=== PATIENT | female | born 1980 | race Caucasian/White ===

== ENCOUNTER 2017-04-20 15:40 | Inpatient (IN) | payer MEDICAID ==
[2017-04-20] MEDS ORDERED: Ondansetron INJ* 2 MG/ML VIAL IV PRN (19:36)
[2017-04-20] MEDS ORDERED: Morphine INJ* 4 MG/ML 1 ML CARPUJECT IV PRN (19:36)
[2017-04-20] MEDS ORDERED: traMADol TAB* 50 MG PO PRN (19:37)
[2017-04-20] MEDS ORDERED: Nicotine GUM* 2 MG PO PRN (19:38)
[2017-04-20] MEDS ORDERED: Zosyn per Pharmacy* NOTE FOLLOW UP SCH (20:00)
--- NOTE | 2017-04-20 20:21 | RAD ---
INDICATION: Right hip pain COMPARISON: None TECHNIQUE: 115 noncontrast axial source images were acquired. Coronal and sagittal reconstructed images were obtained. FINDINGS: There are no acute osseous findings. There are no significant osteoarthritic changes. The right hip articulates normally. The soft tissue elements are normal. IMPRESSION: NEGATIVE EXAMINATION.
[2017-04-20] MEDS ORDERED: Vancomycin(*) 1,000 MG in NS 0.9% 250 ML* 250 ML IVPB ONE (20:30)
[2017-04-20 21:13] LABS: EGFR African American 140.1 (>60); EGFR Non-African American 108.9 (>60)
[2017-04-20] MEDS: HYDROmorphone INJ* 2 MG/ML CARPUJECT SYRINGE IV SLOW PU PRN (21:20)
[2017-04-20] MEDS: Heparin VIAL(*) 5000 UNITS/ML VIAL (FIVE THOUSAND) SUBCUT SCH (21:27)
[2017-04-20 21:28] LABS: Urine Bacteria Absent (Absent); Urine Bilirubin Negative (Negative); Urine Glucose Negative (Negative); Urine Nitrite Negative (Negative)
[2017-04-20] MEDS ORDERED: Vancomycin per Pharmacy* NOTE FOLLOW UP PRN (21:37)
[2017-04-20] MEDS: Cefepime(*) 1 GM in NS 0.9% 50 ML* 50 ML IVPB SCH (22:50)
--- NOTE | 2017-04-20 23:58 | HP ---
HOSPITAL MEDICINE HISTORY AND PHYSICAL: DATE OF ADMISSION: 04/20/17 PRIMARY CARE PHYSICIAN: None. ATTENDING PHYSICIAN: Dr. Ruddy De La Vega* (dictation provided by Julissa Plasencia NP). CHIEF COMPLAINT: Rigors and right hip pain. HISTORY OF PRESENT ILLNESS: Ms. Holloway is a 36-year-old female with a past medical history of back pain and IV drug use, who presents to the hospital today with concern for 3 days of rigors now with chest and right-sided hip pain. Ms. Holloway states that her troubles began about 3 days ago when she began shaking uncontrollably. She was unsure what was going on with her. She does not have a thermometer and did not check her temperature. She continued to feel bad with generalized malaise and muscle aches. She today had worsening rigors and noted chest pain and pain in her right hip radiating down into her leg. Ms. Holloway reports that she last used IV drugs 1 month ago. She states it was methamphetamine. She has had a history of on and off of drug use, but states that she has been clean for the past month. The patient presented to [facility] with rigors, tachycardia, and fever. She was given Zosyn and IV fluids. Labs showed that she had a white blood cell count of 14.2. Her lactic acid was normal at 1 though she does have a bandemia at 14%. Plans were made for her to be transferred to [facility]. Here, she is afebrile, heart rate is 100, blood pressure is 93/53. Her main complaint is of severe right hip and low back pain with any movement that radiates into her right leg. PAST MEDICAL HISTORY: 1. Back pain. 2. IV drug use. MEDICATION: Aspirin p.r.n. pain. ALLERGIES: DIPHENHYDRAMINE and TRAMADOL. FAMILY HISTORY: The patient reports her mother is alive and well. She reports an extensive history of cancer in the family, but she is not sure of the details. SOCIAL HISTORY: The patient is a current smoker. She denies any alcohol use. She has been an IV drug user in the past, but states she has been clean for one month. She states her mom is the healthcare proxy. REVIEW OF SYSTEMS: A 14-point review of systems was completed with Ms. Holloway and all those not mentioned above were negative. PHYSICAL EXAMINATION GENERAL: Ms. Holloway is lying in the bed. She appears uncomfortable, but in no acute distress. VITAL SIGNS: Temperature 98.4, pulse rate 100, respiratory rate 16, O2 saturation 100% on room air, blood pressure 93/53. LUNGS: Clear to auscultation bilaterally with no accessory muscle use and good aeration. HEART: S1, S2. No murmur, rub, or gallop today. ABDOMEN: Soft, nontender with bowel sounds positive x4. EXTREMITIES: No cyanosis. The patient has pain with palpation along the right hip and with any attempt at range of motion. She states she would be unable to bear weight on that hip. NEUROLOGIC: She is alert. She is oriented x3. She moves all extremities equally. There is no facial asymmetry or focal weakness. Extraocular movements are intact. SKIN: No rashes, lesions. BACK: Patient has pain with palpation and range of motion to the right hip. DIAGNOSTIC STUDIES/LAB DATA: Lactic acid 1.1. Sodium 133, potassium 3.1, chloride 98, serum bicarbonate 27, BUN 8, creatinine 0.8. WBC 14.2, hemoglobin 9.4, hematocrit 29.2, platelet count 379. Bands are 14. Blood cultures were sent. Urinalysis shows plus leuk esterase and negative nitrites, but too numerous to count epithelial cells with likely an unclean catch. Chest x-ray shows no acute cardiopulmonary disease. ASSESSMENT: Ms. Holloway is a 36-year-old female with a past medical history of back pain and IV drug use who presents today to the hospital in transfer from [place] with concern for rigors, fever, and sepsis of unknown etiology. Her primary complaint is of right hip pain. Our plans are for inpatient admission as I expect her length of stay to be greater than 2 days for the followin. Sepsis: Based on the patient's severe right hip pain, I am suspicious that perhaps she has septic arthritis or perhaps an epidural abscess and I have written for a stat CT scan. She meets sepsis criteria with tachycardia and fever. Our plans will be to continue with IV fluids. She has had 3 L and we will continue with 1 additional liter now and maintenance fluid. This can be adjusted based on her vital signs and other parameters going forward. Her lactic acid is normal. Blood cultures were sent at [facility]. She will have broad spectrum antibiotic coverage with vancomycin and Zosyn. She does have a history of MRSA. The patient will have a transthoracic echocardiogram tomorrow as I am anticipating that blood cultures will be positive. I see that her urinalysis is positive, but it looks like an unclean catch. I will have that repeated, but I am less suspicious for a urinary source. 2. IV drug use. The patient states her last use was a month ago. The patient will be provided with pain medications to adequately control her right hip pain. Social work has been consulted. 3. History of back pain. The patient states that she hardly ever has any pain with this and that it is in a completely different location than what she is describing today down in her right hip. 4. Code status is full code. 5. Disposition to telemetry floor. TIME SPENT: Approximately 75 minutes were spent on the admission of this patient, more than half the time was spent with the patient at the bedside reviewing the events leading up to this hospitalization, performing the physical examination, and review of my plan of care. JULISSA PLASENCIA NP [id number]/[facility] #: [id number] EMILY
[2017-04-21] MEDS: Acetaminophen TAB* 325 MG PO PRN ×2 (00:41→12:03)
[2017-04-21] MEDS: HYDROmorphone INJ* 2 MG/ML CARPUJECT SYRINGE IV SLOW PU PRN ×5 (01:55→19:29)
[2017-04-21] MEDS: LORazepam TAB(*) 0.5 MG PO PRN ×4 (01:58→23:58)
[2017-04-21] MEDS: Heparin VIAL(*) 5000 UNITS/ML VIAL (FIVE THOUSAND) SUBCUT SCH ×3 (06:05→21:11)
[2017-04-21] MEDS: Vancomycin(*) 1,000 MG in NS 0.9% 250 ML* 250 ML IVPB SCH ×3 (06:05→21:43)
[2017-04-21] MEDS ORDERED: Mouth Piece, Nicotine* 1 EACH CARTRIDGE ONE (06:13)
[2017-04-21] MEDS: Nicotine Inhaler* 10 MG AMP INH PRN ×2 (06:14→09:58)
[2017-04-21 06:49] LABS: Hematocrit 25 % (35-47); Hemoglobin 7.9 g/dl (12.0-16.0); Mean Corpuscular HGB Conc 31 g/dl (31-36); Mean Corpuscular Hemoglobin 22 pg (27-31); Mean Platelet Volume 8 um3 (7.4-10.4); Red Cell Distribution Width 18 % (10.5-15); White Blood Count 9.9 10^3/ul (3.5-10.8)
[2017-04-21 06:51] LABS: Comments Flag Yes
[2017-04-21 06:52] LABS: Mean Corpuscular Volume 70 fL (80-97)
[2017-04-21 07:14] LABS: ALT 12 U/L (7-52); AST 17 U/L (13-39); Albumin 2.6 g/dL (3.2-5.2); Alkaline Phosphatase 81 U/L (34-104); Anion Gap 6 mmol/L (2-11); BUN/Creatinine Ratio 7.4 (8-20); Blood Urea Nitrogen 4 mg/dL (6-24); CO2 Carbon Dioxide 25 mmol/L (22-32); Calcium 7.9 mg/dL (8.6-10.3); Chloride 106 mmol/L (101-111); EGFR African American 164.3 (>60); EGFR Non-African American 127.7 (>60); Glucose 111 mg/dL (70-100); Potassium 3.1 mmol/L (3.5-5.0); Sodium 137 mmol/L (133-145); Total Protein 5.6 g/dL (6.4-8.9)
[2017-04-21] MEDS: Nicotine PATCH 14 MG/24 HR* PATCH TRANSDERM SCH (07:45)
--- NOTE | 2017-04-21 08:00 | RAD ---
HISTORY: Spinal abscess, endocarditis COMPARISONS: None TECHNIQUE: Multiple contiguous axial CT scans were obtained of the lumbar spine without intravenous contrast, with coronal and sagittal multiplanar reformations. FINDINGS: SPINAL CANAL: Evaluation of the central canal is limited on CT technique; however, there is no obvious canalicular mass or epidural hemorrhage. ALIGNMENT: The alignment is normal. VERTEBRAL BODIES: The vertebral bodies are preserved in height. The bones are normal in attenuation. The endplates are preserved. JOINTS: No subluxation or dislocation MUSCULATURE: Unremarkable INTERVERTEBRAL DISCS: There is mild loss of intervertebral disc height throughout the spine. AXIAL IMAGES: T12-L1: There is no osseous neural foraminal narrowing or central canal stenosis. L1-L2: There is no osseous neural foraminal narrowing or central canal stenosis. L2-L3: There is no osseous neural foraminal narrowing or central canal stenosis. L3-L4: There is no osseous neural foraminal narrowing or central canal stenosis. L4-L5: There is a broad-based disc bulge there is no significant central foraminal area or central canal stenosis. L5-S1: There is no osseous neural foraminal narrowing or central canal stenosis. SOFT TISSUES: The visualized soft tissues of the abdomen are unremarkable. OTHER: None IMPRESSION: 1. NONCONTRAST CT IS INSENSITIVE FOR THE DETECTION OF EPIDURAL ABSCESS. WHILE THERE ARE NO CT FINDINGS TO SUGGEST OSTEOMYELITIS OR DISCITIS, IF THERE IS PERSISTENT CLINICAL CONCERN FOR INFECTION INCLUDING EPIDURAL ABSCESS, CONTRAST ENHANCED MRI OF THE SPINE IS MORE SENSITIVE. 2. MILD DEGENERATIVE DISC DISEASE. NO SIGNIFICANT OSSEOUS NEURAL FORAMINAL NARROWING OR CENTRAL CANAL STENOSIS.
--- NOTE | 2017-04-21 08:45 | PN ---
Subjective Date of Service: 04/21/17 Interval History: She again had chills early AM 04/21. Pain R buttock very severe, radiates to her foot. Appetite OK. Objective Active Medications: Acetaminophen (Tylenol Tab*) 650 mg PO Q6H PRN PRN Reason: pain/fever Last Admin: 04/21/17 00:41 Dose: 650 mg Heparin Sodium (Porcine) (Heparin Vial(*)) 5,000 units SUBCUT Q8HR [facility] Last Admin: 04/21/17 06:05 Dose: 5,000 units Hydromorphone HCl (Dilaudid Inj*) 1 mg IV SLOW PU Q3H PRN PRN Reason: PAIN Lactated Ringer's (Lactated Ringers 1000 Ml Bag*) 1,000 mls @ 125 mls/hr IV PER RATE [facility] Last Admin: 04/21/17 07:52 Dose: 125 mls/hr Cefepime HCl 1 gm/ Sodium (Chloride) 50 mls @ 100 mls/hr IVPB Q12H [facility] Last Admin: 04/20/17 22:50 Dose: 100 mls/hr Vancomycin HCl 1,000 mg/ (Sodium Chloride) 250 mls @ 166.667 mls/hr IVPB Q8H [facility] Last Admin: 04/21/17 06:05 Dose: 166.667 mls/hr Ibuprofen (Motrin Tab*) 600 mg PO Q6H PRN PRN Reason: PAIN Influenza Virus Vaccine (Fluarix *Quad* *) 0.5 ml IM .ONCE ONE Stop: 04/21/17 09:01 Last Admin: 04/21/17 07:46 Dose: 0.5 ml Lorazepam (Ativan Tab(*)) 0.5 mg PO Q6H PRN PRN Reason: ANXIETY Last Admin: 04/21/17 08:00 Dose: 0.5 mg Nicotine (Nicotine Inhaler*) 10 mg INH Q2H PRN PRN Reason: CRAVING Last Admin: 04/21/17 06:14 Dose: 10 mg Nicotine (Nicotine Patch 14 Mg/24 Hr*) 1 patch TRANSDERM DAILY [facility] Last Admin: 04/21/17 07:45 Dose: 1 patch Nicotine Polacrilex (Nicotine Gum*) 2 mg PO Q2H PRN PRN Reason: CRAVING Ondansetron HCl (Zofran Inj*) 4 mg IV Q6H PRN PRN Reason: NAUSEA Pharmacy Consult (Vancomycin Per Pharmacy*) 1 note FOLLOW UP . PRN PRN Reason: PER PROTOCOL Pharmacy Profile Note (Nicotine Patch Removal Note*) 1 note PATCH OFF 2100 [facility] Pharmacy Profile Note (Vancomycin Trough Check) 1 note FOLLOW UP 0530 ONE Stop: 04/22/17 05:31 Pneumococcal Polyvalent Vaccine (Pneumococcal Vac 23-Polyvalent*) 0.5 ml IM .ONCE ONE Stop: 04/21/17 09:01 Last Admin: 04/21/17 07:45 Dose: 0.5 ml Vital Signs 04/20/17 04/20/17 04/20/17 18:39 19:50 20:00 Temperature 98.4 F Pulse Rate 100 Respiratory 16 20 20 Rate Blood Pressure 93/53 (mmHg) O2 Sat by Pulse 100 Oximetry 04/20/17 04/20/17 04/20/17 20:50 21:20 22:20 Temperature Pulse Rate Respiratory 20 20 17 Rate Blood Pressure (mmHg) O2 Sat by Pulse Oximetry 04/21/17 04/21/17 04/21/17 00:30 01:55 01:58 Temperature 102.8 F Pulse Rate 114 Respiratory 16 24 24 Rate Blood Pressure 107/61 (mmHg) O2 Sat by Pulse 93 Oximetry 04/21/17 04/21/17 04/21/17 02:01 02:55 03:58 Temperature 100 F Pulse Rate Respiratory 17 17 Rate Blood Pressure (mmHg) O2 Sat by Pulse Oximetry 04/21/17 04/21/17 04/21/17 04:46 06:14 07:14 Temperature 98.5 F Pulse Rate 81 Respiratory 16 18 14 Rate Blood Pressure 101/41 (mmHg) O2 Sat by Pulse 97 Oximetry 04/21/17 04/21/17 04/21/17 08:00 08:07 08:12 Temperature 98.3 F Pulse Rate 113 Respiratory 18 20 18 Rate Blood Pressure 115/66 (mmHg) O2 Sat by Pulse 99 Oximetry Oxygen Devices in Use Now: None Appearance: Alert, head partly up in bed. Uncomfortable with any motion. Eyes: No Scleral Icterus Respiratory: Symmetrical Chest Expansion and Respiratory Effort, Clear to Auscultation, Clear to Percussion, Clear to Palpation, - Cardiovascular: NL Sounds; No Murmurs; No JVD, RRR, No Edema, - Extremities: No Edema, No Clubbing, Cyanosis, - - severe pain with slight abduction R leg, any pressure around R hip. Skin: No Rash or Ulcers, No Nodules or Sclerosis, - Neurological: Alert and Oriented x 3, NL Sensation Result Diagrams: 04/21/17 05:20 04/21/17 05:20 Microbiology and Other Data: Microbiology 04/20/17 19:15 Nasal Screen MRSA (PCR)([facility]) - Final Nasal Mrsa Negative Assess/Plan/Problems-Billing Assessment: - Patient Problems (1) MRSA bacteremia Current Visit: Yes Status: Acute Code(s): R78.81 - BACTEREMIA SNOMED Code( s): 91210930647891539 Comment: ? epidural abcess and/or R hip infection, +/- endocarditis. MRI spine w/wo ordered. Message left for Dr. Singh to call me back to guide evaluation of R hip. Continue cefepime and vancomycin. All 4 blood C&S bottles from [facility] positive, 2 not yet identified, 2 identified as MRSA. CRP add on requested. (2) Tobacco abuse Current Visit: Yes Status: Acute Code(s): Z72.0 - TOBACCO USE SNOMED Code( s): 454470783 Comment: Pt satisfied with the 14 mg dose of patch. Pt advised to quit smoking and avoid second hand smoke. (3) Anemia Current Visit: Yes Status: Acute Code(s): D64.9 - ANEMIA, UNSPECIFIED SNOMED Code(s): 048820712 Comment: Mostl likely iron deficiency anemia related to menstrual blood loss. Iron studies added on.
[2017-04-21] MEDS ORDERED: Influenza VAC *QUAD* 2017-18* 0.5 ML SYRINGE IM ONE (09:00)
[2017-04-21] MEDS ORDERED: Pneumococcal *Vac Polyvalent 0.5 ML VIAL IM ONE (09:00)
[2017-04-21 09:09] LABS: Total Iron Binding Capacity 314 mcg/dL (250-450); Transferrin 224 mg/dL (203-362)
[2017-04-21 09:20] LABS: C Reactive Protein 195.94 mg/L (< 5.00)
[2017-04-21 09:21] LABS: Ferritin 49.5 ng/mL (11-307)
[2017-04-21 09:22] LABS: Iron < 15 ug/dL (50-212)
[2017-04-21] MEDS: Ibuprofen TAB* 600 MG PO PRN ×2 (09:58→16:58)
[2017-04-21] MEDS: Cefepime(*) 1 GM in NS 0.9% 50 ML* 50 ML IVPB SCH (10:18)
--- NOTE | 2017-04-21 14:22 | CONS ---
CONSULTATION REPORT: DATE OF CONSULT: 04/21/17 REQUESTING PHYSICIAN: Dr. Cortez. CONSULTING SERVICE: Infectious Disease. REASON FOR CONSULT: MRSA bacteremia. IMPRESSION: 1. Methicillin-resistant Staphylococcus aureus bacteremia in a person who injects drugs. Severe ri ght buttock and hip pain worse with weightbearing and positive log roll, I am concerned about a sept ic hip. There is no spine tenderness to palpation, though it could still be a lumbar osteodiskitis, septic facet joint, could also be a septic sacroiliac joint, and infective endocarditis is on the d ifferential. 2. Microcytic anemia. 3. Elevated C-reactive protein. RECOMMENDATION: 1. Continue vancomycin, goal trough 15 to 20, we will recheck the blood cultures tomorrow. Follow up sensitivity data. 2. Transesophageal echocardiogram, MRI of the pelvis and lumbar spine and thoracic spine. If there is a right hip effusion and SI joint is fine on the MRI, then she should have aspiration of the hip joint. HISTORY OF PRESENT ILLNESS: This is a 36-year-old woman, who injects drugs, admitted with severe hi p pain and fever, transferred from [facility] where she had been for the same symptoms. Bloo d cultures were taken there, 4/4 with gram- positive cocci. The PCR is positive for Staph aureus an d MRSA. She is on vancomycin and cefepime here. She is continuing to have fevers, which she has mcclain d for a week as well as right buttock and hip pain for a week which is getting worse including with weightbearing. It is hard roll over in bed because of the pain. She had a CT of the lower extremity in the ER that was negative. CT of the lumbar spine showed mild degenerative disk disease. The pa in is about the same today. She was febrile overnight at 39.3. She has no rash or diarrhea. No pro sthetic material present. PAST MEDICAL HISTORY: Back pain, injection of methamphetamine. MEDICATIONS: 1. Tylenol. 2. Dilaudid p.r.n. 3. Ibuprofen. 4. Nicotine gum. 5. Nicotine inhaler. 6. Nicotine patch. 7. Vancomycin 1 g IV every 8 hours. 8. Cefepime 1 g every 12 hours. ALLERGIES: To DIPHENHYDRAMINE and TRAMADOL. FAMILY HISTORY: No recurrent infections, no tuberculosis. SOCIAL HISTORY: She lives in [facility], recently moved here from [place]. Past injection with m ethamphetamine until about a month ago. REVIEW OF SYSTEMS: Fourteen-point review of systems negative except as noted above. PHYSICAL EXAM: Vital Signs: Temperature 37, heart rate 110, respiratory rate 20, blood pressure 11 5/66, O2 sat 99% on room air. General: She is awake, in mild discomfort. HEENT: There is no conj unctival hemorrhage. Oropharynx without lesions. Neurologic: She is oriented x3. Follows all com mands. Strength is 5/5 in the quadriceps, tibialis anterior, gastrocnemius bilaterally. Sensation is intact to light touch in the lower extremities bilaterally. There is no lower extremity clonus b ilaterally. Neck: Supple without nuchal rigidity. Lymph Nodes: There is no cervical, supraclavicu lar, inguinal, axillary, or epitrochlear lymphadenopathy. Heart: Regular and tachycardic without m urmurs. Lungs: Clear to auscultation bilaterally. Abdomen: Soft, nontender, nondistended. Bowel sounds are present. Skin: There is no rash or splinter hemorrhages. Musculoskeletal: There is no spine tenderness to palpation. There is right SI joint tenderness to palpation in hip, greater tro chanteric tenderness to palpation, there is pain with log roll and flexion and extension of the righ t hip. There is no other joint synovitis. LABORATORY DATA: White blood cell count 9.9, hemoglobin 7.9, MCV 70, platelets 238. Creatinine is 0.5. CRP 200. Please see the impressions and recommendation as outlined above, which I have discuss ed with Dr. Cortez. Thank you for asking me to see Holloway in consultation. [id number]/[facility] #: [id number]
--- NOTE | 2017-04-21 14:28 | ECHO ---
Patient: BERNIE FLORES [facility] Rec#: [id number] : 1980 Date: 04/21/2017 Age: 36y Height: 157.48 cm / 62.0 in Weight: 67.13 kg / 148.0 lbs Sex: F BSA: 1.68 Room#: 437 Admit Date#: 04/20/2017 Type: Outpatient Referring: Ty Oseguera MD Reading: Andreea Thompson MD Service Electrician: Mirela [facility]AD[facility] Transthoracic Echocardiogram Indication: Sepsis BP: 101/41 HR: 109 Rhythm: Tachycardia Findings History: IVDA, back pain, smoker. Technical Comments: The study quality is fair. The study is technically limited due to the patient's smoking history. Completed at 1130. Left Ventricle: The left ventricular chamber size is normal. There is no left ventricular hypertrophy. Global left ventricular wall motion and contractility are within normal limits. The left ventricle appears hyperdynamic. The estimated ejection fraction is 60-65%. Normal left ventricular diastolic filling is observed. Left Atrium: The left atrium is mildly dilated. Right Ventricle: Moderator Band present. The right ventricular cavity size is normal. The right ventricular global systolic function is normal. Right Atrium: The right atrial cavity size is normal. Aortic Valve: The aortic valve is trileaflet. There is no evidence of aortic regurgitation. There is no evidence of aortic stenosis. There is no aortic vegetation present. Mitral Valve: The mitral valve leaflets are mildly thickened. There is trace to mild mitral regurgitation. There is no evidence of mitral stenosis. No vegetation is observed on the mitral valve. Tricuspid Valve: The tricuspid valve leaflets are mildly thickened. There is mild to moderate tricuspid regurgitation. The right ventricular systolic pressure is estimated at 37 mmHg. There is evidence of mild pulmonary hypertension. There is no tricuspid stenosis. A mass is visualized on the tricuspid valve which appears consistent with a vegetation.Thickening of the leaflets and chordae seen and on parasternal views evidence of vegetation crossing into the atrium. Pulmonic Valve: The pulmonic valve appears normal. There is a trace pulmonic regurgitation. There is no pulmonic stenosis. No vegetation is observed on the pulmonic valve. Pericardium: There is no significant pericardial effusion. Aorta: There is no dilatation of the ascending aorta. There is no dilatation of the aortic arch. The aortic root is normal in size. Pulmonary Artery: The main pulmonary artery appears normal. Venous: The inferior vena cava appears normal in size. There is less than 50% respiratory change in the inferior vena cava dimension. Conclusions Global left ventricular wall motion and contractility are within normal limits. The left ventricle appears hyperdynamic. The estimated ejection fraction is 60-65%. The right ventricular global systolic function is normal. A mass is visualized on the tricuspid valve which appears consistent with a vegetation: hickening of the leaflets and chordae seen on apical views and on parasternal views evidence of vegetation crossing into the atrium (measures approximately 1.0 x 0.4 cm). There is mild to moderate tricuspid regurgitation. The right ventricular systolic pressure is estimated at 37 mmHg. No vegetations seen on aortic, mitral or pulmonic valves. There is trace to mild mitral regurgitation. No prior echo to compare. Measurements Name Value Normal Range RVIDd (AP) 2D 2.7 cm (0.9 - 2.6) RVDdMajor (2D) 3.6 cm (2.2 - 4.4) RAd ISD 4CH 4 cm (3.4 - 4.9) RA (A4C)W 4.3 cm (2.9 - 4.6) IVSd (2D) 0.72 cm (0.6 - 1) LVPWd (2D) 0.72 cm (0.6 - 1) LVIDd (2D) 4.6 cm (3.6 - 5.4) LVIDs (2D) 3.6 cm - LV FS (2D) 22 % (25 - 45) Aortic Annulus 1.7 cm (1.4 - 2.6) Ao root diameter (2D) 2.2 cm (2.1 - 3.5) Ascending Ao 2.3 cm (2.1 - 3.4) Aortic arch 2.2 cm (1.8 - 3.4) LA dimension (AP) 2D 3.1 cm (2.3 - 3.8) LAd ISD 4CH 4.6 cm (2.9 - 5.3) LA ISD 4CH W 3.5 cm (2.5 - 4.5) Name Value Normal Range LA ESV SP 4CH (A/L) 54 ml - LA ESV SP 2CH (A/L) 58 ml - LA ESV BP (A/L) 58 ml - LA ESV BP (A/L) index 35 ml/m2 - LA ESV SP 4CH (MOD) 48 ml - LA ESV SP 2CH (MOD) 56 ml - Name Value Normal Range MV E-wave Vmax 1.37 m/sec - MV deceleration time 142.6 msec - MV A-wave Vmax 0.7 m/sec - MV E:A ratio 1.96 ratio - LV septal e' Vmax 0.13 m/sec - LV lateral e' Vmax 0.13 m/sec - LV E:e' septal ratio 10.54 ratio - LV E:e' lateral ratio 10.54 ratio - Name Value Normal Range AV Vmax 1.87 m/sec - AV VTI 28.26 cm - AV peak gradient 14.02 mmHg - AV mean gradient 7.76 mmHg - LVOT Vmax 1.46 m/sec - LVOT VTI 22.7 cm - LVOT peak gradient 8.59 mmHg - LVOT mean gradient 4.45 mmHg - GUILLERMINA Vmax 1.43 m/sec - Name Value Normal Range TR Vmax 2.7 m/sec - TR peak gradient 29 mmHg - RAP 8 mmHg - RVSP 37 mmHg - IVC diameter 1.6 cm - Name Value Normal Range PV Vmax 1.1 m/sec - PV peak gradient 4.93 mmHg -
[2017-04-21] MEDS: Ferrous Sulfate TAB* 325 MG PO SCH (17:36)
[2017-04-21] MEDS: Al Hydrox/Mg Hydrox/Simet LIQ* 30 ML UDC PO PRN (17:59)
[2017-04-21] MEDS: Omeprazole CAP* 20 MG PO SCH (17:59)
[2017-04-21] MEDS ORDERED: Gadoteridol* (CONTRAST) 279.3 MG/ML 10 ML IV ONE (19:56)
--- NOTE | 2017-04-21 20:58 | RAD ---
INDICATION: Evaluate for epidural abscess. Back pain. COMPARISON: None TECHNIQUE: Coronal T2, sagittal T1, T2, inversion recovery, and axial T1 and T2-weighted images were acquired. Multiplanar postcontrast images were obtained with injection of 13 mL of ProHance. FINDINGS: Cord: There are no intrinsic abnormalities of the cord. There is no evidence of an epidural mass or abnormal enhancement. Thoracic alignment: Normal. Vertebrae: There are no focal marrow signal abnormalities. The disc spaces are maintained. The canal appears widely patent. Soft tissues:There is no paravertebral abnormality. Other:None IMPRESSION: No specific MR abnormalities. No evidence of discitis or epidural abscess.
--- NOTE | 2017-04-21 21:05 | RAD ---
INDICATION: Back pain. Question spinal abscess. Negative CT imaging of the hip and lumbar spine COMPARISON: None TECHNIQUE: Coronal T2, sagittal T1, T2, inversion recovery, and axial T1 and T2-weighted images were acquired. Multiplanar contrast-enhanced images were obtained with injection of 13 mL of ProHance FINDINGS: Conus medullaris: Normal in size and position . Lumbar alignment: Normal. Vertebrae: There are no focal marrow signal abnormalities. Disc spaces: T12-L1: Normal L1-L2: Normal L2-L3: Normal L3-L4: Normal L4-L5: There is mild desiccation at L4-L5 with mild circumferential bulging the disc. There is wide canal and foraminal patency L5-S1: Normal Soft tissues:There is no paravertebral abnormality. Other: There is no evidence of epidural mass or abnormal enhancement. IMPRESSION: Mild degenerative disease L4-L5 without canal or foraminal compromise. No CT evidence of epidural abscess, osteomyelitis, discitis.
--- NOTE | 2017-04-21 21:10 | CONS ---
CC: PCP CONSULTATION REPORT: DATE OF CONSULT: 04/21/17 CHIEF COMPLAINT: Right hip pain. HISTORY OF PRESENT ILLNESS: Briefly, Becca Holloway is a 36-year-old female with history of back p ain and IV drug use, who presents with 3 days of fevers and chills with right-sided leg pain. She s tates that it radiates down from deep buttock down her leg. She has numbness in the lateral 3 toes dorsally. She has some decreased sensation of plantar aspect of the foot and lateral aspect of the foot. She does not recall any specific injury. Does not recall any specific hip pain specific to t he groin. She does have history of IV drug use and she does use methamphetamine on occasion. She h as been mostly clean otherwise for the last month. She went to [facility] initially and was given Zosyn and IV fluids and then she was transferred here for definitive management. Orthopedics was consulted for possible right hip infection. PAST MEDICAL HISTORY: Back pain, IV drug use. MEDICATIONS: Aspirin as needed. ALLERGIES: BENADRYL and TRAMADOL. FAMILY HISTORY: Her mother is alive and well. She has extensive history of cancer in the family. SOCIAL HISTORY: She is a current smoker. Denies alcohol use. She has been an IV drug user in the past, she is presently clean for the last month. Her mom is her healthcare proxy. REVIEW OF SYSTEMS: A 14-point review of systems is significant for shaking chills, back pain, numbn ess, and tingling. No recent illnesses. No new injuries. Otherwise, remaining systems negative. PHYSICAL EXAM: Vital Signs: Temp of 101.2, pulse of 103, respiratory rate 20, O2 saturation 96% on room air, blood pressure 112/45. She is in no acute distress. She is alert and oriented x3. She i s resting in the bed on her right side. She is able to be mobilized. She stated she just received a dose of Dilaudid. She is able to stand on her legs as she is localizing the pain deep into the bu ttock along the right side and shoots down her leg. The skin is intact. There is no erythema or wa rmth. She is tender about the buttock. I am able to do a log roll without any discomfort. I can f prasanna her hip passively to about 80 degrees, which causes her some pain deep in the buttock and shoots down her leg. She does not localize any pain in the groin. She is nontender about the lateral asp ect of the hip. Her calf is soft and nontender. She is sensate grossly about the foot, but has dim inished sensation about the first dorsal webspace, plantar aspect, and the dorsolateral aspect. She has 2+ PT pulse. She is able to flex and extend her toes and ankle. DIAGNOSTIC STUDIES/LAB DATA: Reviewed that demonstrates white blood cell count of 9.9, hematocrit o f 25, platelet count of 238. ESR 84. INR 1.3. Sodium 137, potassium 3.1, chloride 106, carbon marcelino xide 25, BUN of 4, creatinine 0.54, glucose of 111, calcium 7.9. C-reactive protein of 195.94. CT scan was done, which demonstrates no effusion, no fracture, no dislocation, no evidence of an inf ective process; otherwise, negative exam. ASSESSMENT AND PLAN: She is admitted for suspected methicillin-resistant Staphylococcus aureus bact eremia with possible seeding of the right hip versus the lumbar spine. She is being worked up. The re is no obvious effusion. I discussed with the medicine team there is concern for hip joint infect ion. She needs to have ultrasound and MRI done with an aspiration of effusion if it is present. I will continue to follow along, but I do not see something orthopedic necessarily going on with her. Her pain seems to be more back related. Please do not hesitate to call with any questions, but I w ill follow more distantly with this case. [id number]/[facility] #: [id number]
[2017-04-21] MEDS: Polyethylene Glycol 3350* 17 GM PACKET PO SCH (21:11)
[2017-04-21] MEDS: Nicotine Patch Removal NOTE PATCH OFF SCH (21:14)
[2017-04-22] MEDS: HYDROmorphone INJ* 2 MG/ML CARPUJECT SYRINGE IV SLOW PU PRN ×6 (00:53→23:01)
[2017-04-22] MEDS ORDERED: Vancomycin Trough Check NOTE FOLLOW UP ONE (05:30)
[2017-04-22] MEDS: Omeprazole CAP* 20 MG PO SCH (05:45)
[2017-04-22] MEDS: Heparin VIAL(*) 5000 UNITS/ML VIAL (FIVE THOUSAND) SUBCUT SCH ×3 (05:46→22:30)
[2017-04-22 06:48] LABS: Vancomycin Trough 10.3 mcg/mL
[2017-04-22] MEDS: Vancomycin(*) 1,000 MG in NS 0.9% 250 ML* 250 ML IVPB SCH ×3 (07:00→17:44)
[2017-04-22] MEDS: Polyethylene Glycol 3350* 17 GM PACKET PO SCH ×2 (09:19→19:53)
[2017-04-22] MEDS: Ferrous Sulfate TAB* 325 MG PO SCH ×2 (09:20→17:44)
[2017-04-22] MEDS: Nicotine PATCH 14 MG/24 HR* PATCH TRANSDERM SCH (09:20)
--- NOTE | 2017-04-22 09:53 | PN ---
Progress Note - Progress Note Date of Service: 04/22/17 SOAP: Subjective: CC: endocarditis HPI: 36 year old PWID with MRSA bacteremia and TV vegetation. R buttock pain radiates to upper leg, worse with weight bearing, better with dilaudid. 02/04 now. Fever overnight, no rash or diarrhea. Objective: [] Vital Signs Temp 37.7 C 04/22/17 07:33 Pulse 82 04/22/17 07:33 Resp 18 04/22/17 09:19 BP 104/57 04/22/17 07:33 Pulse Ox 93 04/22/17 07:33 Intake & Output 04/21/17 04/22/17 04/22/17 18:59 06:59 18:59 Intake Total 1566 1170 240 Output Total 450 125 200 Balance 1116 1045 40 Weight 148 lb Intake: IV Fluids 336 442 LR 336 442 IVPB 250 278 ABX - VANCOMYCIN 250 278 Oral 980 450 240 Output: Urine 450 125 200 Other: Estimated Void Medium # Bowel Movements 0 # Voids 1 1 Gen:awake, no distress HEENT:PERRL, MMM Heart:RRR no murmur Lungs:CTA BL Abd:+BS NTND soft Skin: no rash MSK: no spine tenderness, +R buttock tenderness MRI T/L spine no abscess or osteomyelitis Laboratory Results - last 24 hr 04/21/17 04/22/17 12:52 06:21 ESR 84 H Vancomycin Trough 10.3 Assessment: 1. MRSA infective endocarditis of tricuspid valve 2. MRSA sepsis present on admission and bacteremia 3. R buttock pain; Diff dx includes septic SI joint, septic hip, myositis 4. 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 vancomycin goal tr 15-20, recheck BC. MRI pelvis. If fluid in hip joint, IR aspiration. 4 weeks IV antibiotics unless a septic hip/SI joint found and then will need 6-[address] Cortez 35 minutes floor time >50% face to face discussing endocarditis treatment and follow up.
[2017-04-22 10:26] LABS: BUN/Creatinine Ratio 14.3 (8-20); Calcium 8.2 mg/dL (8.6-10.3); EGFR African American 219.6 (>60); EGFR Non-African American 170.7 (>60); Potassium 3.5 mmol/L (3.5-5.0)
[2017-04-22] MEDS ORDERED: Gadoteridol* (CONTRAST) 279.3 MG/ML 10 ML IV ONE (10:53)
--- NOTE | 2017-04-22 11:26 | RAD ---
Indication: RIGHT hip pain. History of IV drug use. Comparison: April 20, 2017 CT and April 21, 2017 MRI lumbar spine. Technique: Pre and postcontrast MRI pelvis RIGHT unilateral hip protocol. 14 mL ProHance administered IV. [employer] 1.5 Anastasia GO790F with GEM suite. Report: Normal bone marrow signal throughout the [id number]. Negative for hip or sacroiliac joint effusions. There is abnormal small volume of infiltrative RIGHT retroperitoneal fluid medial to the obturator internus muscle and at the presacral space. Based on the coronal series inversion recovery and postcontrast series there is edema within the RIGHT iliacus muscle with corresponding enhancement. Full cephalad extent is not included within the [id number]. Based on the current exam and the lumbar spine exam of one day prior there is no loculated retroperitoneal abscess collection. Physiologic small volume of free fluid in the cul-de-sac. Negative for lymphadenopathy within the [id number]. Haile images saved on the [facility] PACS. IMPRESSION: Small volume of infiltrative T2 hyperintense RIGHT retroperitoneal fluid and edema within the RIGHT iliacus muscle concerning for retroperitoneal soft tissue infection given the clinical context. No loculated abscess collection evident. Results discussed with Dr. Cortez 04/22/2017 11:22 AM EDT
--- NOTE | 2017-04-22 11:46 | PN ---
Subjective Date of Service: 04/22/17 Interval History: Pain R hip/leg still very severe. No BM yet. Objective Active Medications: Acetaminophen (Tylenol Tab*) 650 mg PO Q6H PRN PRN Reason: pain/fever Last Admin: 04/21/17 12:03 Dose: 650 mg Al Hydrox/Mg Hydrox/Simethicone (Maalox Plus*) 30 ml PO Q2H PRN PRN Reason: DYSPEPSIA Last Admin: 04/21/17 17:59 Dose: 30 ml Ferrous Sulfate (Ferrous Sulfate Tab*) 325 mg PO 0900,1730 [facility] Last Admin: 04/22/17 09:20 Dose: 325 mg Heparin Sodium (Porcine) (Heparin Vial(*)) 5,000 units SUBCUT Q8HR [facility] Last Admin: 04/22/17 05:46 Dose: 5,000 units Hydromorphone HCl (Dilaudid Inj*) 1 mg IV SLOW PU Q3H PRN PRN Reason: PAIN Last Admin: 04/22/17 09:19 Dose: 1 mg Lactated Ringer's (Lactated Ringers 1000 Ml Bag*) 1,000 mls @ 50 mls/hr IV PER RATE [facility] Last Admin: 04/21/17 19:00 Dose: 50 mls/hr Vancomycin HCl 1,000 mg/ (Sodium Chloride) 250 mls @ 166.667 mls/hr IVPB Q6H [facility] Ibuprofen (Motrin Tab*) 600 mg PO Q6H PRN PRN Reason: PAIN Last Admin: 04/21/17 16:58 Dose: 600 mg Lorazepam (Ativan Tab(*)) 0.5 mg PO Q6H PRN PRN Reason: ANXIETY Last Admin: 04/21/17 23:58 Dose: 0.5 mg Nicotine (Nicotine Inhaler*) 10 mg INH Q2H PRN PRN Reason: CRAVING Last Admin: 04/21/17 09:58 Dose: 10 mg Nicotine (Nicotine Patch 14 Mg/24 Hr*) 1 patch TRANSDERM DAILY [facility] Last Admin: 04/22/17 09:20 Dose: Not Given Nicotine Polacrilex (Nicotine Gum*) 2 mg PO Q2H PRN PRN Reason: CRAVING Omeprazole (Prilosec Cap*) 20 mg PO 0600 [facility] Last Admin: 04/22/17 05:45 Dose: 20 mg Ondansetron HCl (Zofran Inj*) 4 mg IV Q6H PRN PRN Reason: NAUSEA Pharmacy Consult (Vancomycin Per Pharmacy*) 1 note FOLLOW UP . PRN PRN Reason: PER PROTOCOL Pharmacy Profile Note (Nicotine Patch Removal Note*) 1 note PATCH OFF 2099 [facility] Last Admin: 04/21/17 21:14 Dose: 1 note Pharmacy Profile Note (Vancomycin Trough Check) 1 note FOLLOW UP ONCE ONE Stop: 04/23/17 11:31 Polyethylene Glycol/Electrolytes (Miralax*) 17 gm PO 0800,2099 [facility] Last Admin: 04/22/17 09:19 Dose: 17 gm Vital Signs 04/21/17 04/21/17 04/21/17 14:20 15:20 16:04 Temperature 97.4 F Pulse Rate 78 Respiratory 16 17 18 Rate Blood Pressure 84/42 (mmHg) O2 Sat by Pulse 96 Oximetry 04/21/17 04/21/17 04/21/17 16:59 18:59 19:29 Temperature Pulse Rate Respiratory 16 18 18 Rate Blood Pressure (mmHg) O2 Sat by Pulse Oximetry 04/21/17 04/21/17 04/21/17 19:40 20:00 20:29 Temperature Pulse Rate Respiratory 18 19 Rate Blood Pressure 95/52 (mmHg) O2 Sat by Pulse Oximetry 04/21/17 04/21/17 04/21/17 20:59 22:59 23:58 Temperature Pulse Rate Respiratory 18 18 18 Rate Blood Pressure (mmHg) O2 Sat by Pulse Oximetry 04/22/17 04/22/17 04/22/17 00:08 00:53 01:53 Temperature 98.4 F Pulse Rate 79 Respiratory 20 19 17 Rate Blood Pressure 94/51 (mmHg) O2 Sat by Pulse 100 Oximetry 04/22/17 04/22/17 04/22/17 01:58 03:42 03:45 Temperature 98.5 F Pulse Rate 78 Respiratory 17 20 Rate Blood Pressure 102/54 (mmHg) O2 Sat by Pulse 96 Oximetry 04/22/17 04/22/17 04/22/17 05:50 06:15 07:33 Temperature 99.9 F Pulse Rate 82 Respiratory 17 16 Rate Blood Pressure 120/70 104/57 (mmHg) O2 Sat by Pulse 93 Oximetry 04/22/17 04/22/17 08:00 09:19 Temperature Pulse Rate Respiratory 18 18 Rate Blood Pressure (mmHg) O2 Sat by Pulse Oximetry Oxygen Devices in Use Now: None Appearance: Alert, supine in bed. Looks uncomfortable. Extremities: No Edema, No Clubbing, Cyanosis, - - R leg very tender, patiend does not allow exam. Skin: No Rash or Ulcers, No Nodules or Sclerosis, - Neurological: Alert and Oriented x 3, NL Sensation Result Diagrams: 04/21/17 05:20 04/22/17 06:21 Microbiology and Other Data: Microbiology 04/20/17 19:15 Nasal Screen MRSA (PCR)(BETSEY) - Final Nasal Mrsa Negative Assess/Plan/Problems-Billing Assessment: - Patient Problems (1) MRSA bacteremia Current Visit: Yes Status: Acute Code(s): R78.81 - BACTEREMIA SNOMED Code( s): 10000229051983207 Comment: Tricuspid valve endocarditis, 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 Mohan. Continue vanco. CRP 04/25. (2) Tobacco abuse Current Visit: Yes Status: Acute Code(s): Z72.0 - TOBACCO USE SNOMED Code( s): 388759268 Comment: Pt satisfied with the 14 mg dose of patch. Pt advised to quit smoking and avoid second hand smoke. (3) Anemia Current Visit: Yes Status: Acute Code(s): D64.9 - ANEMIA, UNSPECIFIED SNOMED Code(s): 058632529 Comment: Iron deficiency anemia likely related to menstrual blood loss. FeSO4 325 mg bid started 04/21. Repeat CBC 04/25.
[2017-04-22] MEDS: LORazepam TAB(*) 0.5 MG PO PRN ×2 (11:52→22:26)
[2017-04-22] MEDS: Acetaminophen TAB* 325 MG PO PRN (15:22)
[2017-04-22] MEDS: Nicotine Patch Removal NOTE PATCH OFF SCH (20:28)
[2017-04-22] MEDS: Ibuprofen TAB* 600 MG PO PRN (22:25)
[2017-04-23] MEDS: Vancomycin(*) 1,000 MG in NS 0.9% 250 ML* 250 ML IVPB SCH ×5 (00:10→23:52)
[2017-04-23 01:01] LABS: Hematocrit 23 % (35-47); Hemoglobin 7.2 g/dl (12.0-16.0)
[2017-04-23 01:14] LABS: Comments Flag Yes
[2017-04-23 06:02] LABS: C Reactive Protein 164.24 mg/L (< 5.00); EGFR African American 188.2 (>60); EGFR Non-African American 146.3 (>60)
[2017-04-23] MEDS: Omeprazole CAP* 20 MG PO SCH (06:34)
[2017-04-23] MEDS: Magnesium CITRATE* 300 ML BTL PO ONE ×2 (06:36→07:36)
[2017-04-23] MEDS: Heparin VIAL(*) 5000 UNITS/ML VIAL (FIVE THOUSAND) SUBCUT SCH ×3 (06:37→21:50)
[2017-04-23] MEDS: Acetaminophen TAB* 325 MG PO PRN ×2 (06:42→19:45)
[2017-04-23] MEDS: Polyethylene Glycol 3350* 17 GM PACKET PO SCH ×2 (07:35→21:47)
[2017-04-23] MEDS: HYDROmorphone INJ* 2 MG/ML CARPUJECT SYRINGE IV SLOW PU PRN ×5 (07:35→21:41)
[2017-04-23] MEDS: Ferrous Sulfate TAB* 325 MG PO SCH ×2 (07:35→17:51)
[2017-04-23] MEDS: LORazepam TAB(*) 0.5 MG PO PRN ×2 (07:37→14:27)
[2017-04-23] MEDS: Nicotine PATCH 14 MG/24 HR* PATCH TRANSDERM SCH (07:48)
--- NOTE | 2017-04-23 07:58 | RAD ---
INDICATION: Hypoxia COMPARISON: None. TECHNIQUE: Single AP portable view of the chest was obtained. FINDINGS: Image quality is compromised due to the relative inferiority of a portable chest x-ray. The heart and mediastinum exhibit normal size and contour. The pulmonary vasculature appears mildly engorged and indistinct. There is no focal mass or lobar consolidation. The costophrenic angles are adequately defined. Visualized bones are normal for the patient's age. IMPRESSION: In the correct clinical setting the chest x-ray findings could be consistent with pulmonary edema.
--- NOTE | 2017-04-23 08:18 | PN ---
Subjective Date of Service: 04/23/17 Interval History: Pain improved, walks some now. Appetite OK. No BM yet, hasn't finished the mga citrate dose yet. Objective Active Medications: Acetaminophen (Tylenol Tab*) 650 mg PO Q6H PRN PRN Reason: pain/fever Last Admin: 04/23/17 06:42 Dose: 650 mg Al Hydrox/Mg Hydrox/Simethicone (Maalox Plus*) 30 ml PO Q2H PRN PRN Reason: DYSPEPSIA Last Admin: 04/21/17 17:59 Dose: 30 ml Ferrous Sulfate (Ferrous Sulfate Tab*) 325 mg PO 0900,1730 [facility] Last Admin: 04/23/17 07:35 Dose: 325 mg Heparin Sodium (Porcine) (Heparin Vial(*)) 5,000 units SUBCUT Q8HR [facility] Last Admin: 04/23/17 06:37 Dose: 5,000 units Hydromorphone HCl (Dilaudid Inj*) 1 mg IV SLOW PU Q3H PRN PRN Reason: PAIN Last Admin: 04/23/17 07:35 Dose: 1 mg Vancomycin HCl 1,000 mg/ (Sodium Chloride) 250 mls @ 166.667 mls/hr IVPB Q6H [facility] Last Admin: 04/23/17 06:34 Dose: 166.667 mls/hr Iron Sucrose 200 mg/ Sodium (Chloride) 110 mls @ 110 mls/hr IVPB ONCE ONE Stop: 04/23/17 09:09 Ibuprofen (Motrin Tab*) 600 mg PO Q6H PRN PRN Reason: PAIN Last Admin: 04/22/17 22:25 Dose: 600 mg Lorazepam (Ativan Tab(*)) 0.5 mg PO Q6H PRN PRN Reason: ANXIETY Last Admin: 04/23/17 07:37 Dose: 0.5 mg Nicotine (Nicotine Inhaler*) 10 mg INH Q2H PRN PRN Reason: CRAVING Last Admin: 04/21/17 09:58 Dose: 10 mg Nicotine (Nicotine Patch 14 Mg/24 Hr*) 1 patch TRANSDERM DAILY [facility] Last Admin: 04/23/17 07:48 Dose: Not Given Nicotine Polacrilex (Nicotine Gum*) 2 mg PO Q2H PRN PRN Reason: CRAVING Omeprazole (Prilosec Cap*) 20 mg PO 0600 [facility] Last Admin: 04/23/17 06:34 Dose: 20 mg Ondansetron HCl (Zofran Inj*) 4 mg IV Q6H PRN PRN Reason: NAUSEA Pharmacy Consult (Vancomycin Per Pharmacy*) 1 note FOLLOW UP . PRN PRN Reason: PER PROTOCOL Pharmacy Profile Note (Nicotine Patch Removal Note*) 1 note PATCH OFF 2099 [facility] Last Admin: 04/22/17 20:28 Dose: Not Given Pharmacy Profile Note (Vancomycin Trough Check) 1 note FOLLOW UP ONCE ONE Stop: 04/23/17 11:31 Polyethylene Glycol/Electrolytes (Miralax*) 17 gm PO 0800,2099 [facility] Last Admin: 04/23/17 07:35 Dose: 17 gm Vital Signs 04/22/17 04/22/17 04/22/17 09:19 11:17 11:52 Temperature 100.1 F Pulse Rate 109 Respiratory 18 18 20 Rate Blood Pressure 107/50 (mmHg) O2 Sat by Pulse 94 Oximetry 04/22/17 04/22/17 04/22/17 14:22 15:07 15:15 Temperature 102.9 F 103.5 F Pulse Rate 107 Respiratory 20 20 Rate Blood Pressure 121/59 (mmHg) O2 Sat by Pulse 92 Oximetry 04/22/17 04/22/17 04/22/17 15:22 16:03 19:25 Temperature 101.7 F 99.7 F Pulse Rate 79 Respiratory 20 20 Rate Blood Pressure 105/57 (mmHg) O2 Sat by Pulse 94 Oximetry 04/22/17 04/22/17 04/22/17 19:53 20:00 20:53 Temperature Pulse Rate Respiratory 16 16 16 Rate Blood Pressure (mmHg) O2 Sat by Pulse Oximetry 04/22/17 04/22/17 04/22/17 22:26 22:34 23:01 Temperature 98.3 F Pulse Rate 155 Respiratory 26 26 26 Rate Blood Pressure 134/101 (mmHg) O2 Sat by Pulse 91 Oximetry 04/23/17 04/23/17 04/23/17 00:01 00:23 00:26 Temperature 101.6 F Pulse Rate 118 Respiratory 20 20 20 Rate Blood Pressure 103/40 (mmHg) O2 Sat by Pulse 88 Oximetry 04/23/17 04/23/17 04/23/17 04:27 07:35 07:37 Temperature 98.2 F Pulse Rate 69 Respiratory 20 18 18 Rate Blood Pressure 84/51 (mmHg) O2 Sat by Pulse 100 Oximetry 04/23/17 07:38 Temperature 97.7 F Pulse Rate 71 Respiratory 18 Rate Blood Pressure 98/59 (mmHg) O2 Sat by Pulse 99 Oximetry Oxygen Devices in Use Now: None Appearance: Alert, patly up in bed. In good spirits. Looks comfortable. Extremities: No Edema, No Clubbing, Cyanosis, - Skin: No Rash or Ulcers, No Nodules or Sclerosis, - Neurological: Alert and Oriented x 3, NL Sensation Result Diagrams: 04/23/17 00:54 04/23/17 05:15 Microbiology and Other Data: Microbiology 04/20/17 19:15 Nasal Screen MRSA (PCR)(BETSEY) - Final Nasal Mrsa Negative Assess/Plan/Problems-Billing Assessment: - Patient Problems (1) MRSA bacteremia Current Visit: Yes Status: Acute Code(s): R78.81 - BACTEREMIA SNOMED Code( s): 24194875110100929 Comment: Tricuspid valve endocarditis, 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 Mohan. Continue vanco. CRP 04/23 improved. (2) Tobacco abuse Current Visit: Yes Status: Acute Code(s): Z72.0 - TOBACCO USE SNOMED Code( s): 093036990 Comment: Pt satisfied with the 14 mg dose of patch. Pt advised to quit smoking and avoid second hand smoke. (3) Anemia Current Visit: Yes Status: Acute Code(s): D64.9 - ANEMIA, UNSPECIFIED SNOMED Code(s): 950064121 Comment: Iron deficiency anemia likely related to menstrual blood loss. FeSO4 325 mg bid started 04/21. Hct 23 on 04/23/17. Iron sucrose 200 mg IV . Continue oral FeSO4 325 mg bid. Repeat CBC in about a week. (4) Constipation Current Visit: Yes Status: Acute Code(s): K59.00 - CONSTIPATION, UNSPECIFIED SNOMED Code(s): 42440005 Comment: Continue PEG 17 gm bid. Mag citrate 300 ml 04/23.
[2017-04-23] MEDS: Mouth Piece, Nicotine* 1 EACH CARTRIDGE ONE ×2 (10:24→21:54)
[2017-04-23] MEDS: Nicotine Inhaler* 10 MG AMP INH PRN ×2 (10:24→21:54)
--- NOTE | 2017-04-23 10:52 | PN ---
Progress Note - Progress Note Date of Service: 04/23/17 Note: Clarification: patient has infectious endocarditis due to MRSA.
[2017-04-23] MEDS ORDERED: Vancomycin Trough Check NOTE FOLLOW UP ONE (11:30)
[2017-04-23] MEDS ORDERED: tiZANidine TAB* 2 MG ONE (16:03)
[2017-04-23] MEDS: tiZANidine TAB* 2 MG PO SCH ×2 (16:05→21:46)
[2017-04-23] MEDS: Nicotine Patch Removal NOTE PATCH OFF SCH (21:30)
[2017-04-23] MEDS: Ibuprofen TAB* 600 MG PO PRN (21:47)
[2017-04-23] MEDS ORDERED: Mouth Piece, Nicotine* 1 EACH CARTRIDGE ONE (21:53)
[2017-04-24] MEDS: HYDROmorphone INJ* 2 MG/ML CARPUJECT SYRINGE IV SLOW PU PRN ×4 (03:24→12:41)
[2017-04-24] MEDS: Ibuprofen TAB* 600 MG PO PRN (03:24)
[2017-04-24 05:56] LABS: Hematocrit 23 % (35-47); Hemoglobin 7.2 g/dl (12.0-16.0); Mean Corpuscular HGB Conc 32 g/dl (31-36); Mean Corpuscular Hemoglobin 22 pg (27-31); Mean Platelet Volume 8 um3 (7.4-10.4); Red Blood Count 3.26 10^6/ul (4.0-5.4); Red Cell Distribution Width 19 % (10.5-15); White Blood Count 10.3 10^3/ul (3.5-10.8)
[2017-04-24 05:58] LABS: Add Diff/Slide Review? Slide Review Added; Comments Flag Yes; Mean Corpuscular Volume 70 fL (80-97)
[2017-04-24] MEDS: Vancomycin(*) 1,000 MG in NS 0.9% 250 ML* 250 ML IVPB SCH ×3 (06:30→17:15)
[2017-04-24] MEDS: Heparin VIAL(*) 5000 UNITS/ML VIAL (FIVE THOUSAND) SUBCUT SCH ×3 (06:48→21:35)
[2017-04-24] MEDS: Omeprazole CAP* 20 MG PO SCH (06:49)
[2017-04-24] MEDS: Nicotine PATCH 14 MG/24 HR* PATCH TRANSDERM SCH (07:49)
[2017-04-24] MEDS: Polyethylene Glycol 3350* 17 GM PACKET PO SCH ×2 (07:49→21:35)
[2017-04-24] MEDS: tiZANidine TAB* 2 MG PO SCH ×4 (07:49→21:36)
[2017-04-24] MEDS: Ferrous Sulfate TAB* 325 MG PO SCH ×2 (07:49→16:34)
--- NOTE | 2017-04-24 14:44 | PN ---
Subjective Date of Service: 04/24/17 Interval History: Pain R hip/leg area severe again today, hydromorphone not lasting 3 hrs. Objective Active Medications: Acetaminophen (Tylenol Tab*) 650 mg PO Q6H PRN PRN Reason: pain/fever Last Admin: 04/23/17 19:45 Dose: 650 mg Al Hydrox/Mg Hydrox/Simethicone (Maalox Plus*) 30 ml PO Q2H PRN PRN Reason: DYSPEPSIA Last Admin: 04/21/17 17:59 Dose: 30 ml Ferrous Sulfate (Ferrous Sulfate Tab*) 325 mg PO 0900,1730 [facility] Last Admin: 04/24/17 07:49 Dose: 325 mg Heparin Sodium (Porcine) (Heparin Vial(*)) 5,000 units SUBCUT Q8HR [facility] Last Admin: 04/24/17 12:40 Dose: 5,000 units Hydromorphone HCl (Dilaudid Inj*) 1 mg IV SLOW PU Q2H PRN PRN Reason: PAIN Vancomycin HCl 1,000 mg/ (Sodium Chloride) 250 mls @ 166.667 mls/hr IVPB Q6H [facility] Last Admin: 04/24/17 11:28 Dose: 166.667 mls/hr Ibuprofen (Motrin Tab*) 600 mg PO Q6H PRN PRN Reason: PAIN Last Admin: 04/24/17 03:24 Dose: 600 mg Lorazepam (Ativan Tab(*)) 0.5 mg PO Q6H PRN PRN Reason: ANXIETY Last Admin: 04/23/17 14:27 Dose: 0.5 mg Nicotine (Nicotine Inhaler*) 10 mg INH Q2H PRN PRN Reason: CRAVING Last Admin: 04/23/17 21:54 Dose: 10 mg Nicotine (Nicotine Patch 14 Mg/24 Hr*) 1 patch TRANSDERM DAILY [facility] Last Admin: 04/24/17 07:49 Dose: Not Given Nicotine Polacrilex (Nicotine Gum*) 2 mg PO Q2H PRN PRN Reason: CRAVING Omeprazole (Prilosec Cap*) 20 mg PO 0600 [facility] Last Admin: 04/24/17 06:49 Dose: 20 mg Ondansetron HCl (Zofran Inj*) 4 mg IV Q6H PRN PRN Reason: NAUSEA Pharmacy Consult (Vancomycin Per Pharmacy*) 1 note FOLLOW UP . PRN PRN Reason: PER PROTOCOL Pharmacy Profile Note (Nicotine Patch Removal Note*) 1 note PATCH OFF 2099 [facility] Last Admin: 04/23/17 21:30 Dose: Not Given Polyethylene Glycol/Electrolytes (Miralax*) 17 gm PO 0800,2099 [facility] Last Admin: 04/24/17 07:49 Dose: 17 gm Tizanidine HCl (Zanaflex Tab*) 2 mg PO QID [facility] Last Admin: 04/24/17 12:40 Dose: 2 mg Vital Signs 04/23/17 04/23/17 04/23/17 15:27 15:50 17:52 Temperature 98.8 F Pulse Rate 94 Respiratory 18 20 16 Rate Blood Pressure 116/69 (mmHg) O2 Sat by Pulse 97 Oximetry 04/23/17 04/23/17 04/23/17 18:52 19:35 19:53 Temperature 102.8 F Pulse Rate 95 Respiratory 18 16 18 Rate Blood Pressure 105/55 (mmHg) O2 Sat by Pulse 91 Oximetry 04/23/17 04/23/17 04/24/17 21:41 22:41 00:08 Temperature 97.9 F Pulse Rate 64 Respiratory 18 16 20 Rate Blood Pressure 84/44 (mmHg) O2 Sat by Pulse 96 Oximetry 04/24/17 04/24/17 04/24/17 03:24 04:10 04:24 Temperature 97.7 F Pulse Rate 61 Respiratory 16 20 16 Rate Blood Pressure 88/43 (mmHg) O2 Sat by Pulse 95 Oximetry 04/24/17 04/24/17 04/24/17 06:26 07:26 08:00 Temperature Pulse Rate Respiratory 18 18 18 Rate Blood Pressure (mmHg) O2 Sat by Pulse Oximetry 04/24/17 04/24/17 04/24/17 08:36 09:37 10:37 Temperature 97.9 F Pulse Rate 67 Respiratory 16 16 18 Rate Blood Pressure 103/54 (mmHg) O2 Sat by Pulse 97 Oximetry 04/24/17 04/24/17 11:20 12:41 Temperature 97.5 F Pulse Rate 66 Respiratory 18 18 Rate Blood Pressure 85/42 (mmHg) O2 Sat by Pulse 97 Oximetry Oxygen Devices in Use Now: None Appearance: Alert, supine in bed. Looks very uncomfortable. Eyes: No Scleral Icterus Extremities: No Edema, No Clubbing, Cyanosis, - Skin: No Rash or Ulcers, No Nodules or Sclerosis, - Neurological: Alert and Oriented x 3, NL Sensation - Averse to moving her R leg. No tremor. Result Diagrams: 04/24/17 05:33 04/23/17 05:15 Microbiology and Other Data: Microbiology 04/20/17 19:15 Nasal Screen MRSA (PCR)(BETSEY) - Final Nasal Mrsa Negative Assess/Plan/Problems-Billing Assessment: - Patient Problems (1) MRSA bacteremia Current Visit: Yes Status: Acute Code(s): R78.81 - BACTEREMIA SNOMED Code( s): 73192872807349228 Comment: Tricuspid valve endocarditis, 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 Mohan. Continue vanco. CRP 04/23 improved. Hydromorphone interval decreased 04/24. (2) Tobacco abuse Current Visit: Yes Status: Acute Code(s): Z72.0 - TOBACCO USE SNOMED Code( s): 482078394 Comment: Pt satisfied with the 14 mg dose of patch. Pt advised to quit smoking and avoid second hand smoke. (3) Anemia Current Visit: Yes Status: Acute Code(s): D64.9 - ANEMIA, UNSPECIFIED SNOMED Code(s): 426046031 Comment: Iron deficiency anemia likely related to menstrual blood loss. FeSO4 325 mg bid started 04/21. Hct 23 on 04/23/17. Iron sucrose 200 mg IV . Continue oral FeSO4 325 mg bid. Repeat CBC in about a week. (4) Constipation Current Visit: Yes Status: Acute Code(s): K59.00 - CONSTIPATION, UNSPECIFIED SNOMED Code(s): 28784774 Comment: Continue PEG 17 gm bid. Good BM after 150 ml mag citrate 04/23.
[2017-04-24] MEDS: HYDROmorphone INJ* 1 MG/ML CARPUJECT SYRINGE IV SLOW PU PRN ×4 (14:52→21:42)
[2017-04-24] MEDS: Nicotine Patch Removal NOTE PATCH OFF SCH (21:43)
[2017-04-25] MEDS: Vancomycin(*) 1,000 MG in NS 0.9% 250 ML* 250 ML IVPB SCH ×5 (00:11→23:51)
[2017-04-25] MEDS: HYDROmorphone INJ* 1 MG/ML CARPUJECT SYRINGE IV SLOW PU PRN ×9 (00:11→23:51)
[2017-04-25] MEDS: Omeprazole CAP* 20 MG PO SCH (06:20)
[2017-04-25] MEDS: Heparin VIAL(*) 5000 UNITS/ML VIAL (FIVE THOUSAND) SUBCUT SCH ×3 (06:20→20:22)
[2017-04-25] MEDS: Polyethylene Glycol 3350* 17 GM PACKET PO SCH ×2 (08:17→20:21)
[2017-04-25] MEDS: tiZANidine TAB* 2 MG PO SCH ×4 (08:18→20:21)
[2017-04-25] MEDS: Ferrous Sulfate TAB* 325 MG PO SCH ×2 (08:18→16:42)
[2017-04-25] MEDS: Nicotine PATCH 14 MG/24 HR* PATCH TRANSDERM SCH (08:22)
--- NOTE | 2017-04-25 13:59 | PN ---
Subjective Date of Service: 04/25/17 Interval History: C/O pain R lower anterior ribs, hurts too much for her to take a deep breath. No cough. Walks a little. No more constipation. Objective Active Medications: Acetaminophen (Tylenol Tab*) 650 mg PO Q6H PRN PRN Reason: pain/fever Last Admin: 04/23/17 19:45 Dose: 650 mg Al Hydrox/Mg Hydrox/Simethicone (Maalox Plus*) 30 ml PO Q2H PRN PRN Reason: DYSPEPSIA Last Admin: 04/21/17 17:59 Dose: 30 ml Ferrous Sulfate (Ferrous Sulfate Tab*) 325 mg PO 0900,1730 [facility] Last Admin: 04/25/17 08:18 Dose: 325 mg Heparin Sodium (Porcine) (Heparin Vial(*)) 5,000 units SUBCUT Q8HR [facility] Last Admin: 04/25/17 12:25 Dose: 5,000 units Hydromorphone HCl (Dilaudid Injic*) 1 mg IV SLOW PU Q2H PRN PRN Reason: PAIN Last Admin: 04/25/17 11:29 Dose: 1 mg Vancomycin HCl 1,000 mg/ (Sodium Chloride) 250 mls @ 166.667 mls/hr IVPB Q6H [facility] Last Admin: 04/25/17 12:25 Dose: 166.667 mls/hr Ibuprofen (Motrin Tab*) 600 mg PO Q6H PRN PRN Reason: PAIN Last Admin: 04/24/17 03:24 Dose: 600 mg Lorazepam (Ativan Tab(*)) 0.5 mg PO Q6H PRN PRN Reason: ANXIETY Last Admin: 04/23/17 14:27 Dose: 0.5 mg Nicotine (Nicotine Inhaler*) 10 mg INH Q2H PRN PRN Reason: CRAVING Last Admin: 04/23/17 21:54 Dose: 10 mg Nicotine (Nicotine Patch 14 Mg/24 Hr*) 1 patch TRANSDERM DAILY [facility] Last Admin: 04/25/17 08:22 Dose: Not Given Nicotine Polacrilex (Nicotine Gum*) 2 mg PO Q2H PRN PRN Reason: CRAVING Omeprazole (Prilosec Cap*) 20 mg PO 0600 [facility] Last Admin: 04/25/17 06:20 Dose: 20 mg Ondansetron HCl (Zofran Inj*) 4 mg IV Q6H PRN PRN Reason: NAUSEA Pharmacy Consult (Vancomycin Per Pharmacy*) 1 note FOLLOW UP . PRN PRN Reason: PER PROTOCOL Pharmacy Profile Note (Nicotine Patch Removal Note*) 1 note PATCH OFF 2099 [facility] Last Admin: 04/24/17 21:43 Dose: Not Given Polyethylene Glycol/Electrolytes (Miralax*) 17 gm PO 0800,2100 [facility] Last Admin: 04/25/17 08:17 Dose: 17 gm Tizanidine HCl (Zanaflex Tab*) 2 mg PO QID [facility] Last Admin: 04/25/17 12:25 Dose: 2 mg Vital Signs 04/24/17 04/24/17 04/24/17 14:52 15:14 15:52 Temperature 98.8 F Pulse Rate 75 Respiratory 20 16 16 Rate Blood Pressure 99/60 (mmHg) O2 Sat by Pulse 97 Oximetry 04/24/17 04/24/17 04/24/17 17:15 18:15 19:41 Temperature 99.4 F Pulse Rate 96 Respiratory 18 16 Rate Blood Pressure 105/58 (mmHg) O2 Sat by Pulse 95 Oximetry 04/24/17 04/24/17 04/24/17 19:48 20:00 20:48 Temperature Pulse Rate Respiratory 20 20 20 Rate Blood Pressure (mmHg) O2 Sat by Pulse Oximetry 04/24/17 04/24/17 04/25/17 21:42 22:42 00:11 Temperature Pulse Rate Respiratory 20 16 18 Rate Blood Pressure (mmHg) O2 Sat by Pulse Oximetry 04/25/17 04/25/17 04/25/17 00:29 01:11 03:18 Temperature 99.8 F Pulse Rate 73 Respiratory 16 16 18 Rate Blood Pressure 100/46 (mmHg) O2 Sat by Pulse 94 Oximetry 04/25/17 04/25/17 04/25/17 04:18 04:52 06:20 Temperature 99.8 F Pulse Rate 72 Respiratory 18 16 18 Rate Blood Pressure 104/54 (mmHg) O2 Sat by Pulse 94 Oximetry 04/25/17 04/25/17 04/25/17 07:55 08:00 08:21 Temperature 98.9 F Pulse Rate 72 Respiratory 20 16 16 Rate Blood Pressure 97/53 (mmHg) O2 Sat by Pulse 93 Oximetry 04/25/17 04/25/17 04/25/17 09:21 11:29 12:06 Temperature 99.4 F Pulse Rate 66 Respiratory 18 16 20 Rate Blood Pressure 99/53 (mmHg) O2 Sat by Pulse 93 Oximetry Oxygen Devices in Use Now: None Appearance: Alert, supine in bed, looks apprehensive. Eyes: No Scleral Icterus Neck: NL Appearance and Movements; NL JVP, No Thyroid Enlargement, Masses Respiratory: Symmetrical Chest Expansion and Respiratory Effort, Clear to Auscultation, Clear to Percussion, - - R lower anterior ribs tender. 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 Mohan. Continue vanco. CRP 04/23 improved. Hydromorphone interval decreased 04/24. Temp curve better. Blood C&S MRSA all 3 bottles 04/22. ? septic pulm emboli/pneumonia. CXR ordered 04/25. 2 sets blood C&S ordered 04/25. (2) Tobacco abuse Current Visit: Yes Status: Acute Code(s): Z72.0 - TOBACCO USE SNOMED Code( s): 749011051 Comment: Pt satisfied with the 14 mg dose of patch. Pt advised to quit smoking and avoid second hand smoke. (3) Anemia Current Visit: Yes Status: Acute Code(s): D64.9 - ANEMIA, UNSPECIFIED SNOMED Code(s): 425734113 Comment: Iron deficiency anemia likely related to menstrual blood loss. FeSO4 325 mg bid started 04/21. Hct 23 on 04/23/17. Iron sucrose 200 mg IV . Continue oral FeSO4 325 mg bid. Repeat CBC in about a week. (4) Constipation Current Visit: Yes Status: Acute Code(s): K59.00 - CONSTIPATION, UNSPECIFIED SNOMED Code(s): 97281555 Comment: Continue PEG 17 gm bid. Good BM after 150 ml mag citrate 04/23. (5) Infectious myositis Current Visit: Yes Status: Acute Code(s): M60.009 - INFECTIVE MYOSITIS, UNSPECIFIED SITE SNOMED Code(s): 82441934 Comment: R iliacus involvement. Continue antibiotics and analgesics. Not drainable per Dr. Mohan. Should eventually resolve. If it doesn't, consider repeat imaging to see if an abcess has developed. Hopefully temps and CRP will slowly improve. (6) Rib pain on right side Current Visit: Yes Status: Acute Code(s): R07.81 - PLEURODYNIA SNOMED Code (s): 335119637 Comment: Causing splinting. CXR only showed small Left pleural effusion. Low but non-zero possibility of septic emboli. Note that O2 sat on RA is unchanged in mid-90's. If hypoxia develops, consider CTA.
--- NOTE | 2017-04-25 14:37 | RAD ---
HISTORY: Sepsis, rule out endocarditis COMPARISONS: April 23, 2017 at 1:52 AM VIEWS: 2: Frontal and lateral views of the chest. FINDINGS: CARDIOMEDIASTINAL SILHOUETTE: The cardiomediastinal silhouette is normal. SALEEM: The saleem are normal. PLEURA: There is blunting of left costophrenic angle. LUNG PARENCHYMA: The lung volumes are low ABDOMEN: The upper abdomen is clear. There is no subphrenic gas. BONES AND SOFT TISSUES: No bone or soft tissue abnormalities are noted. OTHER: None. IMPRESSION: LOW LUNG VOLUMES. SMALL LEFT PLEURAL EFFUSION.
[2017-04-25] MEDS: Nicotine Patch Removal NOTE PATCH OFF SCH (20:29)
[2017-04-26] MEDS: HYDROmorphone INJ* 1 MG/ML CARPUJECT SYRINGE IV SLOW PU PRN ×7 (02:46→21:56)
[2017-04-26 04:51] LABS: EGFR African American 148.3 (>60); EGFR Non-African American 115.3 (>60)
[2017-04-26] MEDS: Heparin VIAL(*) 5000 UNITS/ML VIAL (FIVE THOUSAND) SUBCUT SCH ×3 (05:55→21:56)
[2017-04-26] MEDS: Omeprazole CAP* 20 MG PO SCH (05:55)
[2017-04-26] MEDS: Vancomycin(*) 1,000 MG in NS 0.9% 250 ML* 250 ML IVPB SCH ×3 (06:20→17:43)
[2017-04-26] MEDS: Polyethylene Glycol 3350* 17 GM PACKET PO SCH ×2 (08:16→21:01)
[2017-04-26] MEDS: Ferrous Sulfate TAB* 325 MG PO SCH ×2 (08:16→16:55)
[2017-04-26] MEDS: tiZANidine TAB* 2 MG PO SCH ×4 (08:16→21:01)
[2017-04-26] MEDS: Nicotine PATCH 14 MG/24 HR* PATCH TRANSDERM SCH (08:27)
--- NOTE | 2017-04-26 11:23 | PN ---
Subjective Date of Service: 04/26/17 Interval History: Pt c/o R hip pain Objective Active Medications: Acetaminophen (Tylenol Tab*) 650 mg PO Q6H PRN PRN Reason: pain/fever Last Admin: 04/23/17 19:45 Dose: 650 mg Al Hydrox/Mg Hydrox/Simethicone (Maalox Plus*) 30 ml PO Q2H PRN PRN Reason: DYSPEPSIA Last Admin: 04/21/17 17:59 Dose: 30 ml Ferrous Sulfate (Ferrous Sulfate Tab*) 325 mg PO 0900,1730 [facility] Last Admin: 04/26/17 08:16 Dose: 325 mg Heparin Sodium (Porcine) (Heparin Vial(*)) 5,000 units SUBCUT Q8HR [facility] Last Admin: 04/26/17 05:55 Dose: 5,000 units Hydromorphone HCl (Dilaudid Injic*) 1 mg IV SLOW PU Q2H PRN PRN Reason: PAIN Last Admin: 04/26/17 11:08 Dose: 1 mg Vancomycin HCl 1,000 mg/ (Sodium Chloride) 250 mls @ 166.667 mls/hr IVPB Q8H [facility] Last Admin: 04/26/17 10:33 Dose: 166.667 mls/hr Ibuprofen (Motrin Tab*) 600 mg PO Q6H PRN PRN Reason: PAIN Last Admin: 04/24/17 03:24 Dose: 600 mg Lorazepam (Ativan Tab(*)) 0.5 mg PO Q6H PRN PRN Reason: ANXIETY Last Admin: 04/23/17 14:27 Dose: 0.5 mg Nicotine (Nicotine Inhaler*) 10 mg INH Q2H PRN PRN Reason: CRAVING Last Admin: 04/23/17 21:54 Dose: 10 mg Nicotine (Nicotine Patch 14 Mg/24 Hr*) 1 patch TRANSDERM DAILY [facility] Last Admin: 04/26/17 08:27 Dose: Not Given Nicotine Polacrilex (Nicotine Gum*) 2 mg PO Q2H PRN PRN Reason: CRAVING Omeprazole (Prilosec Cap*) 20 mg PO 0600 [facility] Last Admin: 04/26/17 05:55 Dose: 20 mg Ondansetron HCl (Zofran Inj*) 4 mg IV Q6H PRN PRN Reason: NAUSEA Oxycodone HCl (Roxycodone Tab*) 5 mg PO Q4H PRN PRN Reason: PAIN Pharmacy Consult (Vancomycin Per Pharmacy*) 1 note FOLLOW UP . PRN PRN Reason: PER PROTOCOL Pharmacy Profile Note (Nicotine Patch Removal Note*) 1 note PATCH OFF 2099 [facility] Last Admin: 04/25/17 20:29 Dose: Not Given Pharmacy Profile Note (Vancomycin Trough Check) 1 note FOLLOW UP 929 ONE Stop: 04/27/17 09:31 Polyethylene Glycol/Electrolytes (Miralax*) 17 gm PO 0800,2099 [facility] Last Admin: 04/26/17 08:16 Dose: 17 gm Tizanidine HCl (Zanaflex Tab*) 2 mg PO QID [facility] Last Admin: 04/26/17 08:16 Dose: 2 mg Vital Signs 04/25/17 04/25/17 04/25/17 11:29 12:06 14:08 Temperature 99.4 F Pulse Rate 66 Respiratory 16 20 18 Rate Blood Pressure 99/53 (mmHg) O2 Sat by Pulse 93 Oximetry 04/25/17 04/25/17 04/25/17 15:08 16:01 16:43 Temperature 98.3 F Pulse Rate 68 Respiratory 16 20 16 Rate Blood Pressure 99/58 (mmHg) O2 Sat by Pulse 96 Oximetry 04/25/17 04/25/17 04/25/17 17:43 20:10 20:21 Temperature Pulse Rate Respiratory 16 18 20 Rate Blood Pressure (mmHg) O2 Sat by Pulse Oximetry 04/25/17 04/25/17 04/25/17 21:21 23:51 23:57 Temperature 99.2 F Pulse Rate 79 Respiratory 16 18 20 Rate Blood Pressure 115/56 (mmHg) O2 Sat by Pulse 92 Oximetry 04/26/17 04/26/17 04/26/17 00:51 02:46 03:46 Temperature Pulse Rate Respiratory 18 22 18 Rate Blood Pressure (mmHg) O2 Sat by Pulse Oximetry 04/26/17 04/26/17 04/26/17 05:54 06:54 08:00 Temperature 99.2 F Pulse Rate 80 Respiratory 20 16 20 Rate Blood Pressure 112/58 (mmHg) O2 Sat by Pulse 93 Oximetry 04/26/17 04/26/17 04/26/17 08:16 09:16 11:08 Temperature Pulse Rate Respiratory 18 18 16 Rate Blood Pressure (mmHg) O2 Sat by Pulse Oximetry Oxygen Devices in Use Now: None Appearance: 36 yo F in nAD, aAOx3 Eyes: No Scleral Icterus, PERRLA Ears/Nose/Mouth/Throat: NL Teeth, Lips, Gums, Mucous Membranes Moist Neck: NL Appearance and Movements; NL JVP, Trachea Midline Respiratory: Symmetrical Chest Expansion and Respiratory Effort Cardiovascular: NL Sounds; No Murmurs; No JVD, RRR, No Edema Abdominal: NL Sounds; No Tenderness; No Distention, No Hepatosplenomegaly Lymphatic: No Cervical Adenopathy Extremities: No Edema, No Clubbing, Cyanosis, - - R buttock tender to palapation , pain illicited when attempted R hip flexion Skin: No Nodules or Sclerosis, - - scattered psoriasis plaques Neurological: Alert and Oriented x 3, NL Muscle Strength and Tone, - - limit on ROM in R hip due to pain Result Diagrams: 04/24/17 05:33 04/26/17 04:23 Microbiology and Other Data: Microbiology 04/20/17 19:15 Nasal Screen MRSA (PCR)([facility]SEY) - Final Nasal Mrsa Negative Assess/Plan/Problems-Billing Assessment: 36 yo F with h/o IVDU with MRSA bacteremia - Patient Problems (1) MRSA bacteremia Comment: Tricuspid valve endocarditis, 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 Mohan. Continue vanco. CRP 04/23 improved. Hydromorphone interval decreased 04/24. started on Oxycodone . Blood C&S still positive on 04/25. (2) Infectious myositis Comment: R iliacus involvement. Continue antibiotics and analgesics. Not drainable per Dr. Mohan. Should eventually resolve. If it doesn't, consider repeat imaging to see if an abcess has developed. CRP ordered for AM (3) Anemia Comment: Iron deficiency anemia likely related to menstrual blood loss. FeSO4 325 mg bid started 04/21. Hct 23 on 04/23/17. Iron sucrose 200 mg IV . Continue oral FeSO4 325 mg bid. Stool guaiac ordered (4) Rib pain on right side Comment: Causing splinting. CXR only showed small Left pleural effusion. Low but non-zero possibility of septic emboli. Note that O2 sat on RA is unchanged in mid-s. If hypoxia develops, consider CTA. (5) Tobacco abuse Comment: Pt satisfied with the 14 mg dose of patch. Pt advised to quit smoking and avoid second hand smoke. (6) DVT prophylaxis Comment: HSQ Status and Disposition: inpatient
[2017-04-26] MEDS: oxyCODONE TAB* 5 MG TAB PO PRN (19:37)
[2017-04-26] MEDS: Ibuprofen TAB* 600 MG PO PRN (19:37)
[2017-04-26] MEDS: Nicotine Patch Removal NOTE PATCH OFF SCH (21:01)
[2017-04-26] MEDS: LORazepam TAB(*) 0.5 MG PO PRN (21:56)
[2017-04-27] MEDS: oxyCODONE TAB* 5 MG TAB PO PRN ×4 (02:03→18:17)
[2017-04-27] MEDS: Vancomycin(*) 1,000 MG in NS 0.9% 250 ML* 250 ML IVPB SCH ×2 (02:04→11:01)
[2017-04-27] MEDS: HYDROmorphone INJ* 1 MG/ML CARPUJECT SYRINGE IV SLOW PU PRN ×2 (04:16→08:10)
[2017-04-27] MEDS: Ibuprofen TAB* 600 MG PO PRN ×2 (04:17→09:45)
[2017-04-27] MEDS: Heparin VIAL(*) 5000 UNITS/ML VIAL (FIVE THOUSAND) SUBCUT SCH ×3 (05:27→20:55)
[2017-04-27] MEDS: Omeprazole CAP* 20 MG PO SCH (05:27)
[2017-04-27 05:36] LABS: Hematocrit 25 % (35-47); Hemoglobin 7.8 g/dl (12.0-16.0); Mean Corpuscular HGB Conc 31 g/dl (31-36); Mean Corpuscular Hemoglobin 22 pg (27-31); Mean Corpuscular Volume 72 fL (80-97); Mean Platelet Volume 8 um3 (7.4-10.4); Red Blood Count 3.54 10^6/ul (4.0-5.4); Red Cell Distribution Width 19 % (10.5-15); White Blood Count 13.1 10^3/ul (3.5-10.8)
[2017-04-27 05:39] LABS: Comments Flag Yes
[2017-04-27 05:40] LABS: Add Diff/Slide Review? Slide Review Added
[2017-04-27 05:42] LABS: BUN/Creatinine Ratio 11.5 (8-20); C Reactive Protein 125.77 mg/L (< 5.00); Calcium 8.8 mg/dL (8.6-10.3); EGFR African American 142.7 (>60); Potassium 3.7 mmol/L (3.5-5.0)
[2017-04-27] MEDS: LORazepam TAB(*) 0.5 MG PO PRN (08:10)
[2017-04-27] MEDS: Ferrous Sulfate TAB* 325 MG PO SCH ×2 (08:10→18:17)
[2017-04-27] MEDS: Al Hydrox/Mg Hydrox/Simet LIQ* 30 ML UDC PO PRN (08:10)
[2017-04-27] MEDS: tiZANidine TAB* 2 MG PO SCH ×4 (08:10→20:55)
[2017-04-27] MEDS: Nicotine Inhaler* 10 MG AMP INH PRN (08:11)
[2017-04-27] MEDS: Polyethylene Glycol 3350* 17 GM PACKET PO SCH ×2 (08:11→20:56)
[2017-04-27] MEDS: Nicotine PATCH 14 MG/24 HR* PATCH TRANSDERM SCH (08:11)
[2017-04-27] MEDS ORDERED: Vancomycin Trough Check NOTE FOLLOW UP ONE (09:30)
[2017-04-27] MEDS: Vancomycin(*) 1,250 MG in NS 0.9% 250 ML* 250 ML IVPB SCH ×2 (11:06→20:54)
--- NOTE | 2017-04-27 12:04 | PN ---
Subjective Date of Service: 04/27/17 Interval History: Pt continues to have pain R hip, ambulates with a walker. Prefers not to use Dilaudid Objective Active Medications: Acetaminophen (Tylenol Tab*) 650 mg PO Q6H PRN PRN Reason: pain/fever Last Admin: 04/23/17 19:45 Dose: 650 mg Al Hydrox/Mg Hydrox/Simethicone (Maalox Plus*) 30 ml PO Q2H PRN PRN Reason: DYSPEPSIA Last Admin: 04/27/17 08:10 Dose: 30 ml Ferrous Sulfate (Ferrous Sulfate Tab*) 325 mg PO 0900,1730 [facility] Last Admin: 04/27/17 08:10 Dose: 325 mg Heparin Sodium (Porcine) (Heparin Vial(*)) 5,000 units SUBCUT Q8HR [facility] Last Admin: 04/27/17 05:27 Dose: 5,000 units Hydromorphone HCl (Dilaudid Injic*) 1 mg IV SLOW PU Q2H PRN PRN Reason: PAIN Last Admin: 04/27/17 08:10 Dose: 1 mg Vancomycin HCl 1,250 mg/ (Sodium Chloride) 250 mls @ 166.667 mls/hr IVPB Q8H [facility] Last Admin: 04/27/17 11:06 Dose: 166.667 mls/hr Ibuprofen (Motrin Tab*) 600 mg PO Q6H PRN PRN Reason: PAIN Last Admin: 04/27/17 09:45 Dose: 600 mg Lorazepam (Ativan Tab(*)) 0.5 mg PO Q6H PRN PRN Reason: ANXIETY Last Admin: 04/27/17 08:10 Dose: 0.5 mg Nicotine (Nicotine Inhaler*) 10 mg INH Q2H PRN PRN Reason: CRAVING Last Admin: 04/27/17 08:11 Dose: 10 mg Nicotine (Nicotine Patch 14 Mg/24 Hr*) 1 patch TRANSDERM DAILY [facility] Last Admin: 04/27/17 08:11 Dose: 1 patch Nicotine Polacrilex (Nicotine Gum*) 2 mg PO Q2H PRN PRN Reason: CRAVING Omeprazole (Prilosec Cap*) 20 mg PO 0600 [facility] Last Admin: 04/27/17 05:27 Dose: 20 mg Ondansetron HCl (Zofran Inj*) 4 mg IV Q6H PRN PRN Reason: NAUSEA Oxycodone HCl (Roxycodone Tab*) 5 mg PO Q4H PRN PRN Reason: PAIN Last Admin: 04/27/17 09:44 Dose: 5 mg Pharmacy Consult (Vancomycin Per Pharmacy*) 1 note FOLLOW UP . PRN PRN Reason: PER PROTOCOL Pharmacy Profile Note (Nicotine Patch Removal Note*) 1 note PATCH OFF 2100 [facility] Last Admin: 04/26/17 21:01 Dose: Not Given Pharmacy Profile Note (Vancomycin Trough Check) 1 note FOLLOW UP 1030 ONE Stop: 04/29/17 10:31 Polyethylene Glycol/Electrolytes (Miralax*) 17 gm PO 0800,2099 [facility] Last Admin: 04/27/17 08:11 Dose: 17 gm Tizanidine HCl (Zanaflex Tab*) 2 mg PO QID [facility] Last Admin: 04/27/17 08:10 Dose: 2 mg Vital Signs 04/26/17 04/26/17 04/26/17 12:08 13:33 14:33 Temperature Pulse Rate Respiratory 16 18 16 Rate Blood Pressure (mmHg) O2 Sat by Pulse Oximetry 04/26/17 04/26/17 04/26/17 15:46 16:55 17:55 Temperature 98.8 F Pulse Rate 70 Respiratory 18 18 16 Rate Blood Pressure 112/61 (mmHg) O2 Sat by Pulse 95 Oximetry 04/26/17 04/26/17 04/26/17 19:10 19:34 19:37 Temperature 99.8 F Pulse Rate 75 Respiratory 18 20 18 Rate Blood Pressure 117/63 (mmHg) O2 Sat by Pulse 95 Oximetry 04/26/17 04/26/17 04/26/17 21:37 21:56 22:56 Temperature Pulse Rate Respiratory 18 18 16 Rate Blood Pressure (mmHg) O2 Sat by Pulse Oximetry 04/26/17 04/27/17 04/27/17 23:56 02:03 02:04 Temperature 98.1 F Pulse Rate 66 Respiratory 16 18 20 Rate Blood Pressure 103/54 (mmHg) O2 Sat by Pulse 99 Oximetry 04/27/17 04/27/17 04/27/17 04:03 04:16 05:16 Temperature Pulse Rate Respiratory 18 18 18 Rate Blood Pressure (mmHg) O2 Sat by Pulse Oximetry 04/27/17 04/27/17 04/27/17 07:54 08:00 08:10 Temperature 98.3 F Pulse Rate 66 Respiratory 20 16 16 Rate Blood Pressure 103/54 (mmHg) O2 Sat by Pulse 95 Oximetry 04/27/17 09:44 Temperature Pulse Rate Respiratory 18 Rate Blood Pressure (mmHg) O2 Sat by Pulse Oximetry Oxygen Devices in Use Now: None Appearance: 36 yo F in nAD, aAOx3 Eyes: No Scleral Icterus, PERRLA Ears/Nose/Mouth/Throat: NL Teeth, Lips, Gums, Mucous Membranes Moist Neck: NL Appearance and Movements; NL JVP, Trachea Midline Respiratory: Symmetrical Chest Expansion and Respiratory Effort, Clear to Auscultation Cardiovascular: NL Sounds; No Murmurs; No JVD, RRR Abdominal: NL Sounds; No Tenderness; No Distention, No Hepatosplenomegaly Lymphatic: No Cervical Adenopathy Extremities: No Clubbing, Cyanosis, - - trace ankle edema b/l, R calf tender on palpation Skin: No Nodules or Sclerosis, - - scattered psoriasis plaques Neurological: Alert and Oriented x 3, NL Muscle Strength and Tone Result Diagrams: 04/27/17 05:19 04/27/17 05:12 Microbiology and Other Data: Microbiology 04/20/17 19:15 Nasal Screen MRSA (PCR)([facility]) - Final Nasal Mrsa Negative Assess/Plan/Problems-Billing Assessment: 36 yo F with h/o IVDU with MRSA bacteremia - Patient Problems (1) MRSA bacteremia Comment: Tricuspid valve endocarditis, 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 Mohan. Continue vanco. CRP 04/23 improved. Hydromorphone interval decreased 04/24. started on Oxycodone/oxycontin . Blood C&S still positive on 04/25. Blood cx from 04/27 pending (2) Infectious myositis Comment: R iliacus involvement. Continue antibiotics and analgesics. Not drainable per Dr. Mohan. Should eventually resolve. If it doesn't, consider repeat imaging to see if an abcess has developed. CRP improving (3) Anemia Comment: Iron deficiency anemia likely related to menstrual blood loss. FeSO4 325 mg bid started 04/21. Hct 23 on 04/23/17. Iron sucrose 200 mg IV . Continue oral FeSO4 325 mg bid. Stool guaiac ordered (4) Rib pain on right side Comment: Causing splinting. CXR only showed small Left pleural effusion. Low but non-zero possibility of septic emboli. Note that O2 sat on RA is unchanged in mid-90's. If hypoxia develops, consider CTA. (5) Tobacco abuse Comment: Pt satisfied with the 14 mg dose of patch. Pt advised to quit smoking and avoid second hand smoke. (6) DVT prophylaxis Comment: HSQ Status and Disposition: inpatient
[2017-04-27] MEDS: oxyCODONE SR TAB(*) 10 MG TAB.SR PO SCH ×2 (12:49→20:55)
--- NOTE | 2017-04-27 15:37 | RAD ---
Indication: Right calf edema. Duplex Doppler sonography of the deep venous system of the right lower extremity deep venous system was performed. Bilaterally the common femoral veins appear patent and compressible. Right proximal greater saphenous vein, proximal deep femoral vein, femoral vein, popliteal vein, posterior tibial veins and peroneal veins appear patent and compressible. IMPRESSION: NO EVIDENCE OF DEEP VENOUS THROMBOSIS IS IDENTIFIED.
[2017-04-27] MEDS: Nicotine Patch Removal NOTE PATCH OFF SCH (20:55)
[2017-04-28] MEDS: oxyCODONE TAB* 5 MG TAB PO PRN ×4 (01:01→19:32)
[2017-04-28] MEDS: Vancomycin(*) 1,250 MG in NS 0.9% 250 ML* 250 ML IVPB SCH ×4 (02:52→21:19)
[2017-04-28] MEDS: Ibuprofen TAB* 600 MG PO PRN ×2 (02:53→09:07)
[2017-04-28] MEDS: Omeprazole CAP* 20 MG PO SCH (04:56)
[2017-04-28] MEDS: Heparin VIAL(*) 5000 UNITS/ML VIAL (FIVE THOUSAND) SUBCUT SCH ×3 (04:56→20:50)
[2017-04-28] MEDS: LORazepam TAB(*) 0.5 MG PO PRN (05:00)
[2017-04-28] MEDS: Polyethylene Glycol 3350* 17 GM PACKET PO SCH ×2 (09:00→19:32)
[2017-04-28] MEDS: tiZANidine TAB* 2 MG PO SCH ×4 (09:07→19:32)
[2017-04-28] MEDS: oxyCODONE SR TAB(*) 10 MG TAB.SR PO SCH (09:07)
[2017-04-28] MEDS: Ferrous Sulfate TAB* 325 MG PO SCH ×2 (09:08→18:12)
[2017-04-28] MEDS: Nicotine PATCH 14 MG/24 HR* PATCH TRANSDERM SCH (09:08)
--- NOTE | 2017-04-28 11:54 | PN ---
Subjective Date of Service: 04/28/17 Interval History: Pt still c/o r hip pain. started walking with PT today. Does fine with a walker Objective Active Medications: Acetaminophen (Tylenol Tab*) 650 mg PO Q6H PRN PRN Reason: pain/fever Last Admin: 04/23/17 19:45 Dose: 650 mg Al Hydrox/Mg Hydrox/Simethicone (Maalox Plus*) 30 ml PO Q2H PRN PRN Reason: DYSPEPSIA Last Admin: 04/27/17 08:10 Dose: 30 ml Ferrous Sulfate (Ferrous Sulfate Tab*) 325 mg PO 0900,1730 [facility] Last Admin: 04/28/17 09:08 Dose: 325 mg Heparin Sodium (Porcine) (Heparin Vial(*)) 5,000 units SUBCUT Q8HR [facility] Last Admin: 04/28/17 04:56 Dose: 5,000 units Vancomycin HCl 1,250 mg/ (Sodium Chloride) 250 mls @ 166.667 mls/hr IVPB Q8H [facility] Last Admin: 04/28/17 10:45 Dose: 166.667 mls/hr Ibuprofen (Motrin Tab*) 600 mg PO Q6H PRN PRN Reason: PAIN Last Admin: 04/28/17 09:07 Dose: 600 mg Lorazepam (Ativan Tab(*)) 0.5 mg PO Q6H PRN PRN Reason: ANXIETY Last Admin: 04/28/17 05:00 Dose: 0.5 mg Nicotine (Nicotine Inhaler*) 10 mg INH Q2H PRN PRN Reason: CRAVING Last Admin: 04/27/17 08:11 Dose: 10 mg Nicotine (Nicotine Patch 14 Mg/24 Hr*) 1 patch TRANSDERM DAILY [facility] Last Admin: 04/28/17 09:08 Dose: 1 patch Nicotine Polacrilex (Nicotine Gum*) 2 mg PO Q2H PRN PRN Reason: CRAVING Omeprazole (Prilosec Cap*) 20 mg PO 0600 [facility] Last Admin: 04/28/17 04:56 Dose: 20 mg Ondansetron HCl (Zofran Inj*) 4 mg IV Q6H PRN PRN Reason: NAUSEA Oxycodone HCl (Roxycodone Tab*) 10 mg PO Q4H PRN PRN Reason: PAIN Last Admin: 04/28/17 09:07 Dose: 10 mg Oxycodone HCl (Oxycontin(*)) 15 mg PO BID [facility] Pharmacy Consult (Vancomycin Per Pharmacy*) 1 note FOLLOW UP . PRN PRN Reason: PER PROTOCOL Pharmacy Profile Note (Nicotine Patch Removal Note*) 1 note PATCH OFF 2099 [facility] Last Admin: 04/27/17 20:55 Dose: 1 note Pharmacy Profile Note (Vancomycin Trough Check) 1 note FOLLOW UP 1030 ONE Stop: 04/29/17 10:31 Polyethylene Glycol/Electrolytes (Miralax*) 17 gm PO 0800,2099 [facility] Last Admin: 04/28/17 09:00 Dose: Not Given Tizanidine HCl (Zanaflex Tab*) 2 mg PO QID [facility] Last Admin: 04/28/17 09:07 Dose: 2 mg Vital Signs 04/27/17 04/27/17 04/27/17 12:49 14:11 14:48 Temperature Pulse Rate Respiratory 16 16 16 Rate Blood Pressure (mmHg) O2 Sat by Pulse Oximetry 04/27/17 04/27/17 04/27/17 16:11 16:21 18:17 Temperature 97.9 F Pulse Rate 57 Respiratory 18 16 18 Rate Blood Pressure 93/50 (mmHg) O2 Sat by Pulse 99 Oximetry 04/27/17 04/27/17 04/27/17 20:00 20:17 20:55 Temperature Pulse Rate Respiratory 16 18 18 Rate Blood Pressure (mmHg) O2 Sat by Pulse Oximetry 04/27/17 04/28/17 04/28/17 22:55 00:26 01:01 Temperature 101.2 F Pulse Rate 80 Respiratory 18 16 18 Rate Blood Pressure 90/46 (mmHg) O2 Sat by Pulse 92 Oximetry 04/28/17 04/28/17 04/28/17 03:01 05:00 07:00 Temperature Pulse Rate Respiratory 18 18 16 Rate Blood Pressure (mmHg) O2 Sat by Pulse Oximetry 04/28/17 04/28/17 04/28/17 07:47 08:00 09:07 Temperature 98.0 F Pulse Rate 55 Respiratory 16 16 16 Rate Blood Pressure 96/48 (mmHg) O2 Sat by Pulse 97 Oximetry 04/28/17 10:51 Temperature Pulse Rate Respiratory 16 Rate Blood Pressure (mmHg) O2 Sat by Pulse Oximetry Oxygen Devices in Use Now: None Appearance: 36 yo f in NAD, AAOx3 Eyes: No Scleral Icterus, PERRLA Ears/Nose/Mouth/Throat: NL Teeth, Lips, Gums, Mucous Membranes Moist Neck: NL Appearance and Movements; NL JVP, Trachea Midline Respiratory: Symmetrical Chest Expansion and Respiratory Effort, Clear to Auscultation Cardiovascular: NL Sounds; No Murmurs; No JVD, RRR Abdominal: NL Sounds; No Tenderness; No Distention, No Hepatosplenomegaly Lymphatic: No Cervical Adenopathy Extremities: No Clubbing, Cyanosis, - - trace b/l ankle edema Skin: No Rash or Ulcers, No Nodules or Sclerosis Neurological: Alert and Oriented x 3, NL Muscle Strength and Tone Result Diagrams: 04/27/17 05:19 04/27/17 05:12 Microbiology and Other Data: Microbiology 04/20/17 19:15 Nasal Screen MRSA (PCR)([facility]) - Final Nasal Mrsa Negative Assess/Plan/Problems-Billing Assessment: 36 yo F with h/o IVDU with MRSA bacteremia - Patient Problems (1) MRSA bacteremia Comment: Tricuspid valve endocarditis, 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 Mohan. Continue vanco. Started on Oxycodone/oxycontin -will titrate up oxycontin today. Blood C&S still positive on 04/27. Blood cx from 04/28 pending (2) Infectious myositis Comment: R iliacus involvement. Continue antibiotics and analgesics. Not drainable per Dr. Mohan. Should eventually resolve. If it doesn't, consider repeat imaging to see if an abcess has developed. CRP improving (3) Anemia Comment: Iron deficiency anemia likely related to menstrual blood loss. FeSO4 325 mg bid started 04/21. Hct 23 on 04/23/17. Iron sucrose 200 mg IV . Continue oral FeSO4 325 mg bid. Stool guaiac ordered (4) Rib pain on right side Comment: resolved (5) Tobacco abuse Comment: Pt satisfied with the 14 mg dose of patch. Pt advised to quit smoking and avoid second hand smoke. (6) DVT prophylaxis Comment: HSQ Status and Disposition: inpatient
[2017-04-28] MEDS: Nicotine Patch Removal NOTE PATCH OFF SCH (19:32)
[2017-04-28] MEDS: oxyCODONE SR TAB(*) 15 MG TAB.SR PO SCH (20:50)
[2017-04-29] MEDS: oxyCODONE TAB* 5 MG TAB PO PRN ×4 (00:28→17:50)
[2017-04-29] MEDS: Vancomycin(*) 1,250 MG in NS 0.9% 250 ML* 250 ML IVPB SCH ×2 (02:42→15:35)
[2017-04-29] MEDS: Omeprazole CAP* 20 MG PO SCH (04:36)
[2017-04-29] MEDS: Heparin VIAL(*) 5000 UNITS/ML VIAL (FIVE THOUSAND) SUBCUT SCH ×3 (04:37→21:51)
[2017-04-29] MEDS: Ibuprofen TAB* 600 MG PO PRN (07:49)
[2017-04-29] MEDS: Polyethylene Glycol 3350* 17 GM PACKET PO SCH ×2 (07:51→20:04)
[2017-04-29] MEDS: Ferrous Sulfate TAB* 325 MG PO SCH ×2 (08:38→17:45)
[2017-04-29] MEDS: tiZANidine TAB* 2 MG PO SCH ×4 (08:38→20:06)
[2017-04-29] MEDS: Acetaminophen TAB* 325 MG PO PRN (08:38)
[2017-04-29] MEDS: oxyCODONE SR TAB(*) 15 MG TAB.SR PO SCH ×2 (08:39→20:06)
[2017-04-29] MEDS: Nicotine PATCH 14 MG/24 HR* PATCH TRANSDERM SCH (08:51)
[2017-04-29 10:28] LABS: EGFR African American 114.2 (>60); EGFR Non-African American 88.8 (>60)
[2017-04-29] MEDS ORDERED: Vancomycin Trough Check NOTE FOLLOW UP ONE (10:30)
--- NOTE | 2017-04-29 15:12 | RAD ---
HISTORY: Right hip myositis, rule out abscess COMPARISONS: None TECHNIQUE: Multiple contiguous axial CT images are obtained of the pelvis, with coronal and sagittal multiplanar reconstructions, without intravenous contrast administration. FINDINGS: Evaluation is limited by the lack of intravenous contrast. This limits evaluation of the soft tissues and vasculature. BONE DENSITY: Normal. BONES: There is no displaced fracture. JOINTS: There is no arthropathy. There is no appreciable joint effusion. MUSCULATURE: Unremarkable ALIGNMENT: There is no dislocation. SOFT TISSUES: There is extensive subcutaneous edema, diffusely bilaterally. There is no loculated fluid collection to suggest abscess. The visualized portion of the peritoneal cavity is unremarkable. There are bilateral inguinal lymph nodes measuring up to 1.1 cm in short axis. OTHER FINDINGS: None. IMPRESSION: 1. EXTENSIVE SUBCUTANEOUS EDEMA, WITHOUT LOCULATED FLUID COLLECTION TO SUGGEST ABSCESS.. 2. SLIGHTLY ENLARGED BILATERAL INGUINAL LYMPH NODES.
[2017-04-29] MEDS: LORazepam TAB(*) 0.5 MG PO PRN (15:32)
[2017-04-29] MEDS: Vancomycin(*) 1,250 MG IV Q8H IVPB SCH ×2 (15:35)
--- NOTE | 2017-04-29 17:40 | PN ---
Subjective Date of Service: 04/29/17 Interval History: R hip still hurts, but is able to move better and ambulate with a walker. Fever of 101 on 04/28/17 Objective Active Medications: Acetaminophen (Tylenol Tab*) 650 mg PO Q6H PRN PRN Reason: pain/fever Last Admin: 04/29/17 08:38 Dose: 650 mg Al Hydrox/Mg Hydrox/Simethicone (Maalox Plus*) 30 ml PO Q2H PRN PRN Reason: DYSPEPSIA Last Admin: 04/27/17 08:10 Dose: 30 ml Ferrous Sulfate (Ferrous Sulfate Tab*) 325 mg PO 0900,1730 [facility] Last Admin: 04/29/17 08:38 Dose: 325 mg Heparin Sodium (Porcine) (Heparin Vial(*)) 5,000 units SUBCUT Q8HR [facility] Last Admin: 04/29/17 15:33 Dose: 5,000 units Heparin Sodium (Porcine) (Heparin Flush Picc/Ml/Cvc(*)) 1 - 3 ml FLUSH 0600, 1800 [facility] PRN Reason: Protocol Vancomycin HCl 1,250 mg/ (Sodium Chloride) 250 mls @ 166.667 mls/hr IVPB Q8H [facility] Last Admin: 04/29/17 15:35 Dose: 166.667 mls/hr Ibuprofen (Motrin Tab*) 600 mg PO Q6H PRN PRN Reason: PAIN Last Admin: 04/29/17 07:49 Dose: 600 mg Lorazepam (Ativan Tab(*)) 0.5 mg PO Q6H PRN PRN Reason: ANXIETY Last Admin: 04/29/17 15:32 Dose: 0.5 mg Nicotine (Nicotine Inhaler*) 10 mg INH Q2H PRN PRN Reason: CRAVING Last Admin: 04/27/17 08:11 Dose: 10 mg Nicotine (Nicotine Patch 14 Mg/24 Hr*) 1 patch TRANSDERM DAILY [facility] Last Admin: 04/29/17 08:51 Dose: Not Given Nicotine Polacrilex (Nicotine Gum*) 2 mg PO Q2H PRN PRN Reason: CRAVING Omeprazole (Prilosec Cap*) 20 mg PO 0600 [facility] Last Admin: 04/29/17 04:36 Dose: 20 mg Ondansetron HCl (Zofran Inj*) 4 mg IV Q6H PRN PRN Reason: NAUSEA Oxycodone HCl (Roxycodone Tab*) 10 mg PO Q4H PRN PRN Reason: PAIN Last Admin: 04/29/17 14:00 Dose: 10 mg Oxycodone HCl (Oxycontin(*)) 15 mg PO BID [facility] Last Admin: 04/29/17 08:39 Dose: 15 mg Pharmacy Consult (Vancomycin Per Pharmacy*) 1 note FOLLOW UP . PRN PRN Reason: PER PROTOCOL Pharmacy Profile Note (Nicotine Patch Removal Note*) 1 note PATCH OFF 2099 [facility] Last Admin: 04/28/17 19:32 Dose: 1 note Pharmacy Profile Note (Vancomycin Trough Check) 1 note FOLLOW UP 08 ONE Stop: 05/01/17 08:31 Polyethylene Glycol/Electrolytes (Miralax*) 17 gm PO 0800,2099 [facility] Last Admin: 04/29/17 07:51 Dose: Not Given Tizanidine HCl (Zanaflex Tab*) 2 mg PO QID [facility] Last Admin: 04/29/17 15:32 Dose: 2 mg Vital Signs 04/28/17 04/28/17 04/28/17 19:32 20:00 20:50 Temperature 97.9 F Pulse Rate 73 Respiratory 16 18 18 Rate Blood Pressure 86/55 (mmHg) O2 Sat by Pulse 98 Oximetry 04/28/17 04/29/17 04/29/17 21:32 00:28 00:30 Temperature 98.7 F Pulse Rate 88 Respiratory 16 18 16 Rate Blood Pressure 118/72 (mmHg) O2 Sat by Pulse 98 Oximetry 04/29/17 04/29/17 04/29/17 02:28 04:36 06:36 Temperature Pulse Rate Respiratory 16 18 18 Rate Blood Pressure (mmHg) O2 Sat by Pulse Oximetry 04/29/17 04/29/17 04/29/17 07:55 08:00 08:39 Temperature 100.2 F Pulse Rate 73 Respiratory 18 18 18 Rate Blood Pressure 99/49 (mmHg) O2 Sat by Pulse 94 Oximetry 04/29/17 04/29/17 04/29/17 14:00 14:47 15:32 Temperature 98.5 F Pulse Rate 63 Respiratory 18 16 18 Rate Blood Pressure 95/55 (mmHg) O2 Sat by Pulse 94 Oximetry Oxygen Devices in Use Now: None Appearance: 36 yo F in nAD, aAOx3 Eyes: No Scleral Icterus, PERRLA Ears/Nose/Mouth/Throat: NL Teeth, Lips, Gums, Mucous Membranes Moist Neck: NL Appearance and Movements; NL JVP, Trachea Midline Respiratory: Symmetrical Chest Expansion and Respiratory Effort, Clear to Auscultation Cardiovascular: NL Sounds; No Murmurs; No JVD, RRR Abdominal: NL Sounds; No Tenderness; No Distention, No Hepatosplenomegaly Lymphatic: No Cervical Adenopathy Extremities: No Clubbing, Cyanosis, - - trance ankle edema b/l Skin: No Rash or Ulcers, No Nodules or Sclerosis Neurological: Alert and Oriented x 3, - - full ROM in b/l hips Result Diagrams: 04/27/17 05:19 04/29/17 10:04 Microbiology and Other Data: Microbiology 04/20/17 19:15 Nasal Screen MRSA (PCR)(BETSEY) - Final Nasal Mrsa Negative Assess/Plan/Problems-Billing Assessment: 36 yo F with h/o IVDU with MRSA bacteremia - Patient Problems (1) MRSA bacteremia Comment: Tricuspid valve endocarditis, 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 Mohan. Continue vanco. Started on Oxycodone/oxycontin Blood C&S still positive on 04/27. Blood cx from 04/29 pending D/w Dr. Michael re: persistent bacteremia and intermittnet fever. Pt also has problems with losing IV access. Recommended midline and CT R hip to r/o abscess( negative) (2) Infectious myositis Comment: R iliacus involvement. Continue antibiotics and analgesics. Not drainable per Dr. Mohan. Repeat CT pelvis shows muslce edema, but no drainable collection. CRP improving (3) Anemia Comment: Iron deficiency anemia likely related to menstrual blood loss. FeSO4 325 mg bid started 04/21. Hct 23 on 04/23/17. Iron sucrose 200 mg IV . Continue oral FeSO4 325 mg bid. Stool guaiac ordered (4) Rib pain on right side Comment: resolved (5) Tobacco abuse Comment: Pt satisfied with the 14 mg dose of patch. Pt advised to quit smoking and avoid second hand smoke. (6) DVT prophylaxis Comment: HSQ Status and Disposition: inpatient
[2017-04-29] MEDS: Nicotine Patch Removal NOTE PATCH OFF SCH (20:06)
[2017-04-30] MEDS: Vancomycin(*) 1,250 MG IV Q8H IVPB SCH ×6 (01:08→17:16)
[2017-04-30] MEDS: Acetaminophen TAB* 325 MG PO PRN ×2 (01:15→15:20)
[2017-04-30] MEDS: LORazepam TAB(*) 0.5 MG PO PRN ×2 (01:15→15:25)
[2017-04-30] MEDS: Heparin VIAL(*) 5000 UNITS/ML VIAL (FIVE THOUSAND) SUBCUT SCH ×3 (04:46→21:13)
[2017-04-30] MEDS: oxyCODONE TAB* 5 MG TAB PO PRN ×3 (05:04→17:27)
[2017-04-30] MEDS: Omeprazole CAP* 20 MG PO SCH (05:21)
[2017-04-30 05:36] LABS: Comments Flag Yes; Hematocrit 21 % (35-47); Hemoglobin 6.6 g/dl (12.0-16.0); Mean Corpuscular HGB Conc 31 g/dl (31-36); Mean Corpuscular Hemoglobin 22 pg (27-31); Mean Platelet Volume 8 um3 (7.4-10.4); Red Blood Count 2.98 10^6/ul (4.0-5.4); Red Cell Distribution Width 20 % (10.5-15)
[2017-04-30 05:37] LABS: Mean Corpuscular Volume 72 fL (80-97)
[2017-04-30 05:47] LABS: BUN/Creatinine Ratio 8.7 (8-20); C Reactive Protein 81.39 mg/L (< 5.00); Calcium 8.4 mg/dL (8.6-10.3); EGFR African American 123.8 (>60); EGFR Non-African American 96.3 (>60); Potassium 4.2 mmol/L (3.5-5.0)
[2017-04-30] MEDS ORDERED: NS 0.9% 250 ML* 500 ML ONE (07:43)
[2017-04-30] MEDS: tiZANidine TAB* 2 MG PO SCH ×4 (07:53→20:27)
[2017-04-30] MEDS: Nicotine PATCH 14 MG/24 HR* PATCH TRANSDERM SCH (07:53)
[2017-04-30] MEDS: oxyCODONE SR TAB(*) 15 MG TAB.SR PO SCH ×2 (07:53→21:13)
[2017-04-30] MEDS: Ferrous Sulfate TAB* 325 MG PO SCH ×2 (07:54→17:13)
[2017-04-30] MEDS: Polyethylene Glycol 3350* 17 GM PACKET PO SCH ×2 (08:04→20:27)
[2017-04-30] MEDS ORDERED: Magnesium Hydroxide LIQ* 30 ML UDC PO PRN (12:23)
--- NOTE | 2017-04-30 13:59 | PN ---
Subjective Date of Service: 04/30/17 Interval History: pt was nauseated and vomited once this AM. Betty abd pain Objective Active Medications: Acetaminophen (Tylenol Tab*) 650 mg PO Q6H PRN PRN Reason: pain/fever Last Admin: 04/30/17 01:15 Dose: 650 mg Al Hydrox/Mg Hydrox/Simethicone (Maalox Plus*) 30 ml PO Q2H PRN PRN Reason: DYSPEPSIA Last Admin: 04/27/17 08:10 Dose: 30 ml Ferrous Sulfate (Ferrous Sulfate Tab*) 325 mg PO 0900,1730 [facility] Last Admin: 04/30/17 07:54 Dose: 325 mg Heparin Sodium (Porcine) (Heparin Vial(*)) 5,000 units SUBCUT Q8HR [facility] Last Admin: 04/30/17 04:46 Dose: 5,000 units Heparin Sodium (Porcine) (Heparin Flush Picc/Ml/Cvc(*)) 1 - 3 ml FLUSH 0600, 1800 [facility] PRN Reason: Protocol Last Admin: 04/30/17 04:46 Dose: 1 ml Vancomycin HCl 1,250 mg/ (Sodium Chloride) 250 mls @ 166.667 mls/hr IVPB Q8H [facility] Last Admin: 04/30/17 08:04 Dose: 166.667 mls/hr Ibuprofen (Motrin Tab*) 600 mg PO Q6H PRN PRN Reason: PAIN Last Admin: 04/29/17 07:49 Dose: 600 mg Lorazepam (Ativan Tab(*)) 0.5 mg PO Q6H PRN PRN Reason: ANXIETY Last Admin: 04/30/17 01:15 Dose: 0.5 mg Magnesium Hydroxide (Milk Of Magnesia Liq*) 30 ml PO Q4H PRN PRN Reason: CONSTIPATION Nicotine (Nicotine Inhaler*) 10 mg INH Q2H PRN PRN Reason: CRAVING Last Admin: 04/27/17 08:11 Dose: 10 mg Nicotine (Nicotine Patch 14 Mg/24 Hr*) 1 patch TRANSDERM DAILY [facility] Last Admin: 04/30/17 07:53 Dose: 1 patch Nicotine Polacrilex (Nicotine Gum*) 2 mg PO Q2H PRN PRN Reason: CRAVING Omeprazole (Prilosec Cap*) 20 mg PO 0600 [facility] Last Admin: 04/30/17 05:21 Dose: 20 mg Ondansetron HCl (Zofran Inj*) 4 mg IV Q6H PRN PRN Reason: NAUSEA Oxycodone HCl (Roxycodone Tab*) 10 mg PO Q4H PRN PRN Reason: PAIN Last Admin: 04/30/17 11:54 Dose: 10 mg Oxycodone HCl (Oxycontin(*)) 15 mg PO BID [facility] Last Admin: 04/30/17 07:53 Dose: 15 mg Pharmacy Consult (Vancomycin Per Pharmacy*) 1 note FOLLOW UP . PRN PRN Reason: PER PROTOCOL Pharmacy Profile Note (Nicotine Patch Removal Note*) 1 note PATCH OFF 2099 [facility] Last Admin: 04/29/17 20:06 Dose: 1 note Pharmacy Profile Note (Vancomycin Trough Check) 1 note FOLLOW UP 829 ONE Stop: 05/01/17 08:31 Polyethylene Glycol/Electrolytes (Miralax*) 17 gm PO 0800,2100 [facility] Last Admin: 04/30/17 08:04 Dose: 17 gm Tizanidine HCl (Zanaflex Tab*) 2 mg PO QID [facility] Last Admin: 04/30/17 11:54 Dose: 2 mg Vital Signs 04/29/17 04/29/17 04/29/17 14:00 14:47 15:32 Temperature 98.5 F Pulse Rate 63 Respiratory 18 16 18 Rate Blood Pressure 95/55 (mmHg) O2 Sat by Pulse 94 Oximetry 04/29/17 04/29/17 04/29/17 17:50 19:50 20:00 Temperature Pulse Rate Respiratory 18 18 18 Rate Blood Pressure (mmHg) O2 Sat by Pulse Oximetry 04/29/17 04/29/17 04/30/17 20:03 20:06 01:10 Temperature 99.9 F Pulse Rate 85 Respiratory 17 18 Rate Blood Pressure 108/62 104/47 (mmHg) O2 Sat by Pulse 92 Oximetry 04/30/17 04/30/17 04/30/17 01:15 03:15 05:04 Temperature Pulse Rate Respiratory 18 17 17 Rate Blood Pressure (mmHg) O2 Sat by Pulse Oximetry 04/30/17 04/30/17 04/30/17 05:15 07:04 07:20 Temperature Pulse Rate Respiratory 18 18 20 Rate Blood Pressure (mmHg) O2 Sat by Pulse Oximetry 04/30/17 04/30/17 04/30/17 07:53 08:24 11:54 Temperature 99.3 F Pulse Rate 64 Respiratory 16 16 16 Rate Blood Pressure 102/60 (mmHg) O2 Sat by Pulse 92 Oximetry Oxygen Devices in Use Now: None Appearance: 36 yo F in NAD, aAOx3 Eyes: No Scleral Icterus, PERRLA Ears/Nose/Mouth/Throat: NL Teeth, Lips, Gums, Mucous Membranes Moist Neck: NL Appearance and Movements; NL JVP, Trachea Midline Respiratory: Symmetrical Chest Expansion and Respiratory Effort, Clear to Auscultation Cardiovascular: NL Sounds; No Murmurs; No JVD, RRR Abdominal: NL Sounds; No Tenderness; No Distention, No Hepatosplenomegaly Lymphatic: No Cervical Adenopathy Extremities: No Edema Skin: No Rash or Ulcers, No Nodules or Sclerosis Neurological: Alert and Oriented x 3, NL Muscle Strength and Tone Result Diagrams: 04/30/17 05:00 04/30/17 05:00 Microbiology and Other Data: Microbiology 04/20/17 19:15 Nasal Screen MRSA (PCR)(BETSEY) - Final Nasal Mrsa Negative Assess/Plan/Problems-Billing Assessment: 36 yo F with h/o IVDU with MRSA bacteremia - Patient Problems (1) MRSA bacteremia Comment: Tricuspid valve endocarditis, 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 Mohan. Continue vanco. Started on Oxycodone/oxycontin Blood C&S still positive on 04/27. Blood cx from 04/[address] R hip to r/o abscess(negative) (2) Infectious myositis Comment: R iliacus involvement. Continue antibiotics and analgesics. Not drainable per Dr. Mohan. Repeat CT pelvis shows muslce edema, but no drainable collection. CRP improving (3) Anemia Comment: Iron deficiency anemia likely related to menstrual blood loss, with slight worsening. Stool heme neg, no acute bleeding. will monitor. FeSO4 325 mg bid started 04/21. Hct 23 on 04/23/17. Iron sucrose 200 mg IV 04/23/17. Continue oral FeSO4 325 mg bid. (4) Rib pain on right side Comment: resolved (5) Tobacco abuse Comment: Pt satisfied with the 14 mg dose of patch. Pt advised to quit smoking and avoid second hand smoke. (6) DVT prophylaxis Comment: HSQ Status and Disposition: inpatient
[2017-04-30] MEDS ORDERED: NS 0.9% 250 ML* 250 ML ONE (16:54)
[2017-04-30] MEDS: Nicotine Patch Removal NOTE PATCH OFF SCH (20:30)
[2017-05-01] MEDS: LORazepam TAB(*) 0.5 MG PO PRN ×3 (00:22→20:56)
[2017-05-01] MEDS: Vancomycin(*) 1,250 MG IV Q8H IVPB SCH ×6 (00:30→16:34)
[2017-05-01] MEDS: oxyCODONE TAB* 5 MG TAB PO PRN ×3 (03:22→18:51)
[2017-05-01] MEDS: Heparin VIAL(*) 5000 UNITS/ML VIAL (FIVE THOUSAND) SUBCUT SCH ×3 (05:41→20:57)
[2017-05-01] MEDS: Omeprazole CAP* 20 MG PO SCH (05:42)
[2017-05-01] MEDS: Ibuprofen TAB* 600 MG PO PRN ×2 (06:12→17:04)
[2017-05-01] MEDS ORDERED: Vancomycin Trough Check NOTE FOLLOW UP ONE (08:30)
[2017-05-01] MEDS: Polyethylene Glycol 3350* 17 GM PACKET PO SCH ×2 (08:58→21:01)
[2017-05-01] MEDS ORDERED: NS 0.9% 250 ML* 250 ML ONE (09:04)
[2017-05-01] MEDS: Nicotine PATCH 14 MG/24 HR* PATCH TRANSDERM SCH (09:17)
[2017-05-01] MEDS: tiZANidine TAB* 2 MG PO SCH ×4 (09:18→20:56)
[2017-05-01] MEDS: oxyCODONE SR TAB(*) 15 MG TAB.SR PO SCH ×2 (09:18→20:55)
[2017-05-01] MEDS: Ferrous Sulfate TAB* 325 MG PO SCH ×2 (09:19→17:04)
--- NOTE | 2017-05-01 10:44 | PN ---
Subjective Date of Service: 05/01/17 Interval History: Nausea resolved. No problems tolerating meals Objective Active Medications: Acetaminophen (Tylenol Tab*) 650 mg PO Q6H PRN PRN Reason: pain/fever Last Admin: 04/30/17 15:20 Dose: 650 mg Al Hydrox/Mg Hydrox/Simethicone (Maalox Plus*) 30 ml PO Q2H PRN PRN Reason: DYSPEPSIA Last Admin: 04/27/17 08:10 Dose: 30 ml Ferrous Sulfate (Ferrous Sulfate Tab*) 325 mg PO 0900,1730 [facility] Last Admin: 05/01/17 09:19 Dose: 325 mg Heparin Sodium (Porcine) (Heparin Vial(*)) 5,000 units SUBCUT Q8HR [facility] Last Admin: 05/01/17 05:41 Dose: 5,000 units Heparin Sodium (Porcine) (Heparin Flush Picc/Ml/Cvc(*)) 1 - 3 ml FLUSH 0600, 1800 [facility] PRN Reason: Protocol Last Admin: 05/01/17 05:42 Dose: 1 ml Vancomycin HCl 1,250 mg/ (Sodium Chloride) 250 mls @ 166.667 mls/hr IVPB Q8H [facility] Last Admin: 05/01/17 09:11 Dose: 166.667 mls/hr Ibuprofen (Motrin Tab*) 600 mg PO Q6H PRN PRN Reason: PAIN Last Admin: 05/01/17 06:12 Dose: 600 mg Lorazepam (Ativan Tab(*)) 0.5 mg PO Q6H PRN PRN Reason: ANXIETY Last Admin: 05/01/17 09:19 Dose: 0.5 mg Magnesium Hydroxide (Milk Of Magnesia Liq*) 30 ml PO Q4H PRN PRN Reason: CONSTIPATION Nicotine (Nicotine Inhaler*) 10 mg INH Q2H PRN PRN Reason: CRAVING Last Admin: 04/27/17 08:11 Dose: 10 mg Nicotine (Nicotine Patch 14 Mg/24 Hr*) 1 patch TRANSDERM DAILY [facility] Last Admin: 05/01/17 09:17 Dose: 1 patch Nicotine Polacrilex (Nicotine Gum*) 2 mg PO Q2H PRN PRN Reason: CRAVING Omeprazole (Prilosec Cap*) 20 mg PO 0600 [facility] Last Admin: 05/01/17 05:42 Dose: 20 mg Ondansetron HCl (Zofran Inj*) 4 mg IV Q6H PRN PRN Reason: NAUSEA Oxycodone HCl (Roxycodone Tab*) 10 mg PO Q4H PRN PRN Reason: PAIN Last Admin: 05/01/17 03:22 Dose: 10 mg Oxycodone HCl (Oxycontin(*)) 15 mg PO BID [facility] Last Admin: 05/01/17 09:18 Dose: 15 mg Pharmacy Consult (Vancomycin Per Pharmacy*) 1 note FOLLOW UP . PRN PRN Reason: PER PROTOCOL Pharmacy Profile Note (Nicotine Patch Removal Note*) 1 note PATCH OFF 2099 [facility] Last Admin: 04/30/17 20:30 Dose: 1 note Polyethylene Glycol/Electrolytes (Miralax*) 17 gm PO 0800,2099 [facility] Last Admin: 05/01/17 08:58 Dose: Not Given Tizanidine HCl (Zanaflex Tab*) 2 mg PO QID [facility] Last Admin: 05/01/17 09:18 Dose: 2 mg Vital Signs 04/30/17 04/30/17 04/30/17 11:54 13:54 15:25 Temperature 99.3 F Pulse Rate 71 Respiratory 16 18 20 Rate Blood Pressure 96/51 (mmHg) O2 Sat by Pulse 92 Oximetry 04/30/17 04/30/17 04/30/17 16:00 17:25 17:27 Temperature 98.9 F Pulse Rate 62 Respiratory 20 18 18 Rate Blood Pressure 100/56 (mmHg) O2 Sat by Pulse 90 Oximetry 04/30/17 04/30/17 04/30/17 19:27 20:00 21:13 Temperature Pulse Rate Respiratory 16 16 18 Rate Blood Pressure (mmHg) O2 Sat by Pulse Oximetry 04/30/17 05/01/17 05/01/17 23:58 00:22 02:22 Temperature 98.5 F Pulse Rate 59 Respiratory 16 16 16 Rate Blood Pressure 91/51 (mmHg) O2 Sat by Pulse 98 Oximetry 05/01/17 05/01/17 05/01/17 03:03 03:22 05:22 Temperature 98.8 F Pulse Rate 65 Respiratory 18 16 16 Rate Blood Pressure 99/58 (mmHg) O2 Sat by Pulse 98 Oximetry 05/01/17 05/01/17 05/01/17 07:42 09:18 09:19 Temperature Pulse Rate Respiratory 18 16 16 Rate Blood Pressure (mmHg) O2 Sat by Pulse Oximetry Oxygen Devices in Use Now: None Appearance: 36 yo f in nAD, aAOx3 Eyes: No Scleral Icterus, PERRLA Ears/Nose/Mouth/Throat: NL Teeth, Lips, Gums, Mucous Membranes Moist Neck: NL Appearance and Movements; NL JVP, Trachea Midline Respiratory: Symmetrical Chest Expansion and Respiratory Effort, Clear to Auscultation Cardiovascular: NL Sounds; No Murmurs; No JVD, RRR Abdominal: NL Sounds; No Tenderness; No Distention, No Hepatosplenomegaly Lymphatic: No Cervical Adenopathy Extremities: No Clubbing, Cyanosis, - - +1 nonpitting ankle edema b/l Skin: No Rash or Ulcers, No Nodules or Sclerosis Neurological: Alert and Oriented x 3, NL Muscle Strength and Tone, - - pain with flexing r hip, but no limitation of ROM Result Diagrams: 04/30/17 05:00 04/30/17 05:00 Microbiology and Other Data: Microbiology 04/20/17 19:15 Nasal Screen MRSA (PCR)(BETSEY) - Final Nasal Mrsa Negative Assess/Plan/Problems-Billing Assessment: 36 yo F with h/o IVDU with MRSA bacteremia - Patient Problems (1) MRSA bacteremia Comment: Tricuspid valve endocarditis, 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 Mohan. Continue vanco. cont on Oxycodone/oxycontin Blood cx from 04/29 positive.Next blood cx to be drawn on 05/02/17 CT R hip to r/o abscess(negative) (2) Infectious myositis Comment: R iliacus involvement. Continue antibiotics and analgesics. Not drainable per Dr. Mohan. Repeat CT pelvis shows muslce edema, but no drainable collection. CRP improving (3) Anemia Comment: Iron deficiency anemia likely related to menstrual blood loss, with slight worsening. Stool heme neg, no acute bleeding. will monitor. FeSO4 325 mg bid started 04/21. Hct 23 on 04/23/17. Iron sucrose 200 mg IV 04/23/17. Continue oral FeSO4 325 mg bid. (4) Rib pain on right side Comment: resolved (5) Tobacco abuse Comment: Pt satisfied with the 14 mg dose of patch. Pt advised to quit smoking and avoid second hand smoke. (6) DVT prophylaxis Comment: HSQ Status and Disposition: inpatient. Once blood cx neg can have PICC placed and made SWING. For now cont midline and f/u blood cx
[2017-05-01 16:15] LABS: Hematocrit 26 % (35-47); Hemoglobin 7.8 g/dl (12.0-16.0); Mean Corpuscular HGB Conc 30 g/dl (31-36); Mean Corpuscular Hemoglobin 22 pg (27-31); Mean Platelet Volume 8 um3 (7.4-10.4); Red Blood Count 3.55 10^6/ul (4.0-5.4); Red Cell Distribution Width 20 % (10.5-15)
[2017-05-01 16:17] LABS: Add Diff/Slide Review? Manual Diff Added; Comments Flag Yes; Mean Corpuscular Volume 72 fL (80-97)
[2017-05-01] MEDS ORDERED: NS 0.9% 1000 ML* 1,000 ML IV SCH (16:45)
[2017-05-01 17:05] LABS: Add Path Review? YES; Hypochromasia 1+; Immature Granulocytes 6 % (0-9); Microcytosis 1+; Neutrophil % 73 % (38-83); Polychromasia 1+; Toxic Granulation 1+
[2017-05-01] MEDS: Nicotine Patch Removal NOTE PATCH OFF SCH (21:01)
[2017-05-02] MEDS: Vancomycin(*) 1,250 MG IV Q8H IVPB SCH ×4 (01:54→10:56)
[2017-05-02] MEDS: Heparin VIAL(*) 5000 UNITS/ML VIAL (FIVE THOUSAND) SUBCUT SCH ×3 (06:52→21:03)
[2017-05-02] MEDS: Omeprazole CAP* 20 MG PO SCH (06:52)
[2017-05-02] MEDS: oxyCODONE TAB* 5 MG TAB PO PRN ×2 (07:23→14:40)
[2017-05-02] MEDS ORDERED: Vancomycin Trough Check NOTE FOLLOW UP ONE (08:30)
[2017-05-02] MEDS: oxyCODONE SR TAB(*) 15 MG TAB.SR PO SCH ×2 (10:17→21:03)
[2017-05-02] MEDS: tiZANidine TAB* 2 MG PO SCH ×4 (10:17→21:12)
[2017-05-02] MEDS: Nicotine PATCH 14 MG/24 HR* PATCH TRANSDERM SCH (10:17)
[2017-05-02] MEDS: Polyethylene Glycol 3350* 17 GM PACKET PO SCH ×2 (10:18→21:03)
[2017-05-02] MEDS: Ferrous Sulfate TAB* 325 MG PO SCH ×2 (10:18→17:02)
[2017-05-02 10:45] LABS: Vancomycin Trough 26.7 mcg/mL
--- NOTE | 2017-05-02 13:55 | PN ---
Subjective Date of Service: 05/02/17 Interval History: Pain control OK. No GI c/o. No new c/o. Walks some. Objective Active Medications: Acetaminophen (Tylenol Tab*) 650 mg PO Q6H PRN PRN Reason: pain/fever Last Admin: 04/30/17 15:20 Dose: 650 mg Al Hydrox/Mg Hydrox/Simethicone (Maalox Plus*) 30 ml PO Q2H PRN PRN Reason: DYSPEPSIA Last Admin: 04/27/17 08:10 Dose: 30 ml Ferrous Sulfate (Ferrous Sulfate Tab*) 325 mg PO 0900,1730 [facility] Last Admin: 05/02/17 10:18 Dose: 325 mg Heparin Sodium (Porcine) (Heparin Vial(*)) 5,000 units SUBCUT Q8HR [facility] Last Admin: 05/02/17 06:52 Dose: 5,000 units Heparin Sodium (Porcine) (Heparin Flush Picc/Ml/Cvc(*)) 1 - 3 ml FLUSH 0600, 1800 [facility] PRN Reason: Protocol Last Admin: 05/02/17 06:52 Dose: 1 ml Sodium Chloride (Ns 0.9% 1000 Ml*) 1,000 mls @ 150 mls/hr IV PER RATE [facility] Last Admin: 05/01/17 17:08 Dose: 150 mls/hr Vancomycin HCl 1,000 mg/ (Sodium Chloride) 250 mls @ 166.667 mls/hr IVPB Q8H [facility] Ibuprofen (Motrin Tab*) 600 mg PO Q6H PRN PRN Reason: PAIN Last Admin: 05/01/17 17:04 Dose: 600 mg Lorazepam (Ativan Tab(*)) 0.5 mg PO Q6H PRN PRN Reason: ANXIETY Last Admin: 05/01/17 20:56 Dose: 0.5 mg Magnesium Hydroxide (Milk Of Magnesia Liq*) 30 ml PO Q4H PRN PRN Reason: CONSTIPATION Nicotine (Nicotine Inhaler*) 10 mg INH Q2H PRN PRN Reason: CRAVING Last Admin: 04/27/17 08:11 Dose: 10 mg Nicotine (Nicotine Patch 14 Mg/24 Hr*) 1 patch TRANSDERM DAILY [facility] Last Admin: 05/02/17 10:17 Dose: 1 patch Nicotine Polacrilex (Nicotine Gum*) 2 mg PO Q2H PRN PRN Reason: CRAVING Omeprazole (Prilosec Cap*) 20 mg PO 0600 [facility] Last Admin: 05/02/17 06:52 Dose: 20 mg Ondansetron HCl (Zofran Inj*) 4 mg IV Q6H PRN PRN Reason: NAUSEA Oxycodone HCl (Roxycodone Tab*) 10 mg PO Q4H PRN PRN Reason: PAIN Last Admin: 05/02/17 07:23 Dose: 10 mg Oxycodone HCl (Oxycontin(*)) 15 mg PO BID [facility] Last Admin: 05/02/17 10:17 Dose: 15 mg Pharmacy Consult (Vancomycin Per Pharmacy*) 1 note FOLLOW UP . PRN PRN Reason: PER PROTOCOL Pharmacy Profile Note (Nicotine Patch Removal Note*) 1 note PATCH OFF 2099 [facility] Last Admin: 05/01/17 21:01 Dose: 1 note Pharmacy Profile Note (Vancomycin Trough Check) 1 note FOLLOW UP 0830 ONE Stop: 05/04/17 08:31 Polyethylene Glycol/Electrolytes (Miralax*) 17 gm PO 0800,2099 [facility] Last Admin: 05/02/17 10:18 Dose: Not Given Tizanidine HCl (Zanaflex Tab*) 2 mg PO QID [facility] Last Admin: 05/02/17 10:17 Dose: 2 mg Vital Signs 05/01/17 05/01/17 05/01/17 15:16 16:12 16:30 Temperature 98.7 F Pulse Rate 65 Respiratory 16 16 Rate Blood Pressure 80/36 88/42 (mmHg) O2 Sat by Pulse 93 Oximetry 05/01/17 05/01/17 05/01/17 18:30 18:51 20:00 Temperature Pulse Rate 71 Respiratory 18 16 Rate Blood Pressure 94/45 (mmHg) O2 Sat by Pulse Oximetry 05/01/17 05/01/17 05/01/17 20:55 20:56 22:56 Temperature Pulse Rate Respiratory 16 16 16 Rate Blood Pressure (mmHg) O2 Sat by Pulse Oximetry 05/01/17 05/02/17 05/02/17 23:58 07:23 08:00 Temperature 97.9 F Pulse Rate 56 Respiratory 16 15 16 Rate Blood Pressure 90/50 (mmHg) O2 Sat by Pulse 95 Oximetry 05/02/17 05/02/17 05/02/17 08:42 09:23 10:17 Temperature 100.3 F Pulse Rate 75 Respiratory 16 18 18 Rate Blood Pressure 104/48 (mmHg) O2 Sat by Pulse 91 Oximetry Oxygen Devices in Use Now: None Appearance: Alert, supine in bed. In fair spirits. Looks comfortable. 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 Mohan. Continue vanco. cont on Oxycodone/oxycontin Blood cx from 04/29 positive. Two sets of blood cx to be drawn on 05/02/17. CT R hip to r/o abscess(negative) (2) Tobacco abuse Current Visit: Yes Status: Acute Code(s): Z72.0 - TOBACCO USE SNOMED Code( s): 988472441 Comment: Change to 7 mg dose of nicotine patch. (3) Anemia Current Visit: Yes Status: Acute Code(s): D64.9 - ANEMIA, UNSPECIFIED SNOMED Code(s): 154194606 Comment: Iron deficiency anemia likely related to menstrual blood loss, with slight worsening. Stool heme neg, no acute bleeding. will monitor. FeSO4 325 mg bid started 04/21. Hct 23 on 04/23/17. Iron sucrose 200 mg IV 04/23/17. Continue oral FeSO4 325 mg bid. (4) Constipation Current Visit: Yes Status: Acute Code(s): K59.00 - CONSTIPATION, UNSPECIFIED SNOMED Code(s): 03929769 Comment: Continue PEG 17 gm bid. Good BM after 150 ml mag citrate 04/23. (5) Infectious myositis Current Visit: Yes Status: Acute Code(s): M60.009 - INFECTIVE MYOSITIS, UNSPECIFIED SITE SNOMED Code(s): 34353341 Comment: R iliacus involvement. Continue antibiotics and analgesics. Not drainable per Dr. Mohan. Repeat CT pelvis shows muslce edema, but no drainable collection. CRP improving (6) Rib pain on right side Current Visit: Yes Status: Acute Code(s): R07.81 - PLEURODYNIA SNOMED Code (s): 694642072 Comment: resolved Status and Disposition: inpatient. Once blood cx neg can have PICC placed and made SWING. For now cont midline and f/u blood cx
[2017-05-02] MEDS: Nicotine Patch Removal NOTE PATCH OFF SCH ×2 (14:53→21:03)
[2017-05-02] MEDS: Nicotine PATCH 7 MG/24 HR* PATCH TRANSDERM SCH (14:54)
[2017-05-02] MEDS: Nicotine Inhaler* 10 MG AMP INH PRN (14:58)
[2017-05-02] MEDS: Vancomycin(*) 1,000 MG in NS 0.9% 250 ML* 250 ML IVPB SCH (17:02)
[2017-05-02] MEDS: Ibuprofen TAB* 600 MG PO PRN (17:04)
[2017-05-03] MEDS: Vancomycin(*) 1,000 MG in NS 0.9% 250 ML* 250 ML IVPB SCH ×3 (01:24→17:52)
[2017-05-03] MEDS: oxyCODONE TAB* 5 MG TAB PO PRN ×4 (03:34→17:52)
[2017-05-03] MEDS: Heparin VIAL(*) 5000 UNITS/ML VIAL (FIVE THOUSAND) SUBCUT SCH ×3 (06:23→21:34)
[2017-05-03] MEDS: Omeprazole CAP* 20 MG PO SCH (06:23)
[2017-05-03] MEDS: Ibuprofen TAB* 600 MG PO PRN ×3 (06:32→21:34)
[2017-05-03] MEDS: LORazepam TAB(*) 0.5 MG PO PRN (06:32)
[2017-05-03] MEDS: Nicotine PATCH 7 MG/24 HR* PATCH TRANSDERM SCH (08:55)
[2017-05-03] MEDS: tiZANidine TAB* 2 MG PO SCH ×4 (08:56→21:35)
[2017-05-03] MEDS: oxyCODONE SR TAB(*) 15 MG TAB.SR PO SCH ×2 (08:56→21:34)
[2017-05-03] MEDS: Ferrous Sulfate TAB* 325 MG PO SCH ×2 (08:56→17:52)
[2017-05-03] MEDS: Polyethylene Glycol 3350* 17 GM PACKET PO SCH (08:56)
--- NOTE | 2017-05-03 13:13 | PN ---
Subjective Date of Service: 05/03/17 Interval History: Gradually improving. Pain control OK. Walks in halls some. Three loos stools 05/02, 1 so far today, not taking PEG. Objective Active Medications: Acetaminophen (Tylenol Tab*) 650 mg PO Q6H PRN PRN Reason: pain/fever Last Admin: 04/30/17 15:20 Dose: 650 mg Al Hydrox/Mg Hydrox/Simethicone (Maalox Plus*) 30 ml PO Q2H PRN PRN Reason: DYSPEPSIA Last Admin: 04/27/17 08:10 Dose: 30 ml Ferrous Sulfate (Ferrous Sulfate Tab*) 325 mg PO 0900,1730 [facility] Last Admin: 05/03/17 08:56 Dose: 325 mg Heparin Sodium (Porcine) (Heparin Vial(*)) 5,000 units SUBCUT Q8HR [facility] Last Admin: 05/03/17 06:23 Dose: 5,000 units Heparin Sodium (Porcine) (Heparin Flush Picc/Ml/Cvc(*)) 1 - 3 ml FLUSH 0600, 1800 [facility] PRN Reason: Protocol Last Admin: 05/03/17 06:24 Dose: 1 ml Vancomycin HCl 1,000 mg/ (Sodium Chloride) 250 mls @ 166.667 mls/hr IVPB Q8H [facility] Last Admin: 05/03/17 08:55 Dose: 166.667 mls/hr Ibuprofen (Motrin Tab*) 600 mg PO Q6H PRN PRN Reason: PAIN Last Admin: 05/03/17 06:32 Dose: 600 mg Lorazepam (Ativan Tab(*)) 0.5 mg PO Q6H PRN PRN Reason: ANXIETY Last Admin: 05/03/17 06:32 Dose: 0.5 mg Magnesium Hydroxide (Milk Of Magnesia Liq*) 30 ml PO Q4H PRN PRN Reason: CONSTIPATION Nicotine (Nicotine Inhaler*) 10 mg INH Q2H PRN PRN Reason: CRAVING Last Admin: 05/02/17 14:58 Dose: 10 mg Nicotine (Nicotine Patch 7 Mg/24 Hr*) 1 patch TRANSDERM DAILY [facility] Last Admin: 05/03/17 08:55 Dose: 1 patch Nicotine Polacrilex (Nicotine Gum*) 2 mg PO Q2H PRN PRN Reason: CRAVING Omeprazole (Prilosec Cap*) 20 mg PO 0600 [facility] Last Admin: 05/03/17 06:23 Dose: 20 mg Ondansetron HCl (Zofran Inj*) 4 mg IV Q6H PRN PRN Reason: NAUSEA Oxycodone HCl (Roxycodone Tab*) 10 mg PO Q4H PRN PRN Reason: PAIN Last Admin: 05/03/17 08:56 Dose: 10 mg Oxycodone HCl (Oxycontin(*)) 15 mg PO BID [facility] Last Admin: 05/03/17 08:56 Dose: 15 mg Pharmacy Consult (Vancomycin Per Pharmacy*) 1 note FOLLOW UP . PRN PRN Reason: PER PROTOCOL Pharmacy Profile Note (Nicotine Patch Removal Note*) 1 note PATCH OFF 2099 [facility] Last Admin: 05/02/17 21:03 Dose: 1 note Pharmacy Profile Note (Vancomycin Trough Check) 1 note FOLLOW UP 829 ONE Stop: 05/04/17 08:31 Polyethylene Glycol/Electrolytes (Miralax*) 17 gm PO 0800,2100 [facility] Last Admin: 05/03/17 08:56 Dose: Not Given Tizanidine HCl (Zanaflex Tab*) 2 mg PO QID [facility] Last Admin: 05/03/17 08:56 Dose: 2 mg Vital Signs 05/02/17 05/02/17 05/02/17 14:40 16:29 20:00 Temperature 98.6 F Pulse Rate 75 Respiratory 18 16 16 Rate Blood Pressure 90/50 (mmHg) O2 Sat by Pulse 94 Oximetry 05/02/17 05/03/17 05/03/17 21:03 01:21 03:34 Temperature 97.8 F Pulse Rate 61 Respiratory 16 16 18 Rate Blood Pressure 97/64 (mmHg) O2 Sat by Pulse 95 Oximetry 05/03/17 05/03/17 05/03/17 05:34 06:32 07:47 Temperature Pulse Rate 63 Respiratory 14 14 18 Rate Blood Pressure 97/53 (mmHg) O2 Sat by Pulse 95 Oximetry 05/03/17 05/03/17 05/03/17 08:00 08:56 10:56 Temperature Pulse Rate Respiratory 16 16 16 Rate Blood Pressure (mmHg) O2 Sat by Pulse Oximetry Oxygen Devices in Use Now: None Appearance: Alert, in a chair. In good spirits. Looks comfortable. Eyes: No Scleral Icterus Extremities: No Edema, No Clubbing, Cyanosis, - Skin: No Rash or Ulcers, No Nodules or Sclerosis, - Neurological: Alert and Oriented x 3, NL Sensation Result Diagrams: 05/01/17 15:59 05/02/17 08:13 Microbiology and Other Data: Microbiology 04/20/17 19:15 Nasal Screen MRSA (PCR)(BETSEY) - Final Nasal Mrsa Negative Assess/Plan/Problems-Billing Assessment: 36 yo F with h/o IVDU with MRSA bacteremia - Patient Problems (1) MRSA bacteremia Current Visit: Yes Status: Acute Code(s): R78.81 - BACTEREMIA SNOMED Code( s): 40685320939755006 Comment: Tricuspid valve endocarditis, 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 Mohan. Continue vanco. cont on Oxycodone/oxycontin Blood cx from 04/29 positive. Two sets of blood cx drawn on 05/02/17. CT pelvis 04/29 showed extensive subcut edema but no abcess. Plan 4 weeks vanco from date of first set neg blood C&S, repeat echo before end of course. CRP weekly. (2) Tobacco abuse Current Visit: Yes Status: Acute Code(s): Z72.0 - TOBACCO USE SNOMED Code( s): 870960812 Comment: Change to 7 mg dose of nicotine patch. (3) Anemia Current Visit: Yes Status: Acute Code(s): D64.9 - ANEMIA, UNSPECIFIED SNOMED Code(s): 493145750 Comment: Iron deficiency anemia likely related to menstrual blood loss, with slight worsening. Stool heme neg, no acute bleeding. will monitor. FeSO4 325 mg bid started 04/21. Hct 23 on 04/23/17. Iron sucrose 200 mg IV 04/23/17. Continue oral FeSO4 325 mg bid. (4) Constipation Current Visit: Yes Status: Acute Code(s): K59.00 - CONSTIPATION, UNSPECIFIED SNOMED Code(s): 35271570 Comment: Reduce PEG to 17 gm daily 05/03. (5) Infectious myositis Current Visit: Yes Status: Acute Code(s): M60.009 - INFECTIVE MYOSITIS, UNSPECIFIED SITE SNOMED Code(s): 92466836 Comment: R iliacus involvement. Continue antibiotics and analgesics. Not drainable per Dr. Mohan. Repeat CT pelvis shows muslce edema, but no drainable collection. CRP improving (6) Rib pain on right side Current Visit: Yes Status: Acute Code(s): R07.81 - PLEURODYNIA SNOMED Code (s): 380417273 Comment: resolved Status and Disposition: inpatient. Once blood cx neg can have PICC placed and made SWING. For now cont midline and f/u blood cx
[2017-05-03] MEDS: Nicotine Patch Removal NOTE PATCH OFF SCH (21:30)
[2017-05-03] MEDS: Hydrocortisone 1% CREAM* 30 GM TUBE TOPICAL SCH (21:35)
[2017-05-04] MEDS: Vancomycin(*) 1,000 MG in NS 0.9% 250 ML* 250 ML IVPB SCH ×2 (02:10→11:41)
[2017-05-04] MEDS: LORazepam TAB(*) 0.5 MG PO PRN ×3 (02:15→21:01)
[2017-05-04] MEDS: oxyCODONE TAB* 5 MG TAB PO PRN ×3 (02:16→14:10)
[2017-05-04] MEDS: Omeprazole CAP* 20 MG PO SCH (06:07)
[2017-05-04] MEDS: Heparin VIAL(*) 5000 UNITS/ML VIAL (FIVE THOUSAND) SUBCUT SCH ×3 (06:07→21:01)
[2017-05-04] MEDS ORDERED: Vancomycin Trough Check NOTE FOLLOW UP ONE (08:30)
[2017-05-04] MEDS: oxyCODONE SR TAB(*) 15 MG TAB.SR PO SCH ×2 (09:21→21:01)
[2017-05-04] MEDS: tiZANidine TAB* 2 MG PO SCH ×4 (09:21→21:01)
[2017-05-04] MEDS: Nicotine PATCH 7 MG/24 HR* PATCH TRANSDERM SCH (09:22)
[2017-05-04] MEDS: Ibuprofen TAB* 600 MG PO PRN ×2 (09:22→21:01)
[2017-05-04] MEDS: Hydrocortisone 1% CREAM* 30 GM TUBE TOPICAL SCH ×2 (09:22→21:02)
[2017-05-04] MEDS: Ferrous Sulfate TAB* 325 MG PO SCH ×2 (09:22→17:16)
[2017-05-04] MEDS: Polyethylene Glycol 3350* 17 GM PACKET PO SCH (09:22)
[2017-05-04 11:18] LABS: EGFR African American 117.9 (>60); EGFR Non-African American 91.7 (>60)
[2017-05-04 11:37] LABS: Vancomycin Trough 24.4 mcg/mL
--- NOTE | 2017-05-04 13:47 | PN ---
Subjective Date of Service: 05/04/17 Interval History: Pruritic rash both legs started 05/03. Otherwise gradually getting better. Objective Active Medications: Acetaminophen (Tylenol Tab*) 650 mg PO Q6H PRN PRN Reason: pain/fever Last Admin: 04/30/17 15:20 Dose: 650 mg Al Hydrox/Mg Hydrox/Simethicone (Maalox Plus*) 30 ml PO Q2H PRN PRN Reason: DYSPEPSIA Last Admin: 04/27/17 08:10 Dose: 30 ml Ferrous Sulfate (Ferrous Sulfate Tab*) 325 mg PO 0900,1730 [facility] Last Admin: 05/04/17 09:22 Dose: 325 mg Heparin Sodium (Porcine) (Heparin Vial(*)) 5,000 units SUBCUT Q8HR [facility] Last Admin: 05/04/17 06:07 Dose: 5,000 units Heparin Sodium (Porcine) (Heparin Flush Picc/Ml/Cvc(*)) 1 - 3 ml FLUSH 0600, 1800 [facility] PRN Reason: Protocol Last Admin: 05/04/17 06:07 Dose: 1 ml Hydrocortisone (Hytone Cream 1%*) 1 applic TOPICAL BID [facility] Last Admin: 05/04/17 09:22 Dose: 1 applic Linezolid (Zyvox 600 Mg Ivpremix(*)) 600 mg in 300 mls @ 300 mls/hr IVPB Q12H [facility] Ibuprofen (Motrin Tab*) 600 mg PO Q6H PRN PRN Reason: PAIN Last Admin: 05/04/17 09:22 Dose: 600 mg Lorazepam (Ativan Tab(*)) 0.5 mg PO Q6H PRN PRN Reason: ANXIETY Last Admin: 05/04/17 09:21 Dose: 0.5 mg Magnesium Hydroxide (Milk Of Magnesia Liq*) 30 ml PO Q4H PRN PRN Reason: CONSTIPATION Nicotine (Nicotine Inhaler*) 10 mg INH Q2H PRN PRN Reason: CRAVING Last Admin: 05/02/17 14:58 Dose: 10 mg Nicotine (Nicotine Patch 7 Mg/24 Hr*) 1 patch TRANSDERM DAILY [facility] Last Admin: 05/04/17 09:22 Dose: 1 patch Nicotine Polacrilex (Nicotine Gum*) 2 mg PO Q2H PRN PRN Reason: CRAVING Omeprazole (Prilosec Cap*) 20 mg PO 0600 [facility] Last Admin: 05/04/17 06:07 Dose: 20 mg Ondansetron HCl (Zofran Inj*) 4 mg IV Q6H PRN PRN Reason: NAUSEA Oxycodone HCl (Roxycodone Tab*) 10 mg PO Q4H PRN PRN Reason: PAIN Last Admin: 05/04/17 09:21 Dose: 10 mg Oxycodone HCl (Oxycontin(*)) 15 mg PO BID [facility] Last Admin: 05/04/17 09:21 Dose: 15 mg Pharmacy Profile Note (Nicotine Patch Removal Note*) 1 note PATCH OFF 2099 [facility] Last Admin: 05/03/17 21:30 Dose: 1 note Polyethylene Glycol/Electrolytes (Miralax*) 17 gm PO DAILY [facility] Last Admin: 05/04/17 09:22 Dose: Not Given Tizanidine HCl (Zanaflex Tab*) 2 mg PO QID [facility] Last Admin: 05/04/17 09:21 Dose: 2 mg Vital Signs 05/03/17 05/03/17 05/03/17 13:55 15:45 17:52 Temperature 98.0 F Pulse Rate 57 Respiratory 16 16 16 Rate Blood Pressure 89/49 (mmHg) O2 Sat by Pulse 94 Oximetry 05/03/17 05/03/17 05/03/17 19:52 20:00 21:34 Temperature Pulse Rate Respiratory 16 20 20 Rate Blood Pressure (mmHg) O2 Sat by Pulse Oximetry 05/04/17 05/04/17 05/04/17 00:46 02:15 02:16 Temperature 98.0 F Pulse Rate 58 Respiratory 18 16 16 Rate Blood Pressure 91/47 (mmHg) O2 Sat by Pulse 98 Oximetry 05/04/17 05/04/17 05/04/17 04:15 04:16 07:38 Temperature 97.2 F Pulse Rate 63 Respiratory 18 18 16 Rate Blood Pressure 88/49 (mmHg) O2 Sat by Pulse 96 Oximetry 05/04/17 05/04/17 05/04/17 08:00 09:21 11:11 Temperature Pulse Rate Respiratory 16 16 16 Rate Blood Pressure (mmHg) O2 Sat by Pulse Oximetry Oxygen Devices in Use Now: None Appearance: Alert, supine in bed. In good spirits. Looks comfortable. Eyes: No Scleral Icterus Respiratory: Symmetrical Chest Expansion and Respiratory Effort, Clear to Auscultation, Clear to Percussion Extremities: No Edema, No Clubbing, Cyanosis, - Skin: No Nodules or Sclerosis, - - dozens of red macular lesions both legs toes to groin Neurological: Alert and Oriented x 3, NL Sensation Result Diagrams: 05/01/17 15:59 05/04/17 10:41 Microbiology and Other Data: Microbiology 04/20/17 19:15 Nasal Screen MRSA (PCR)(BETSEY) - Final Nasal Mrsa Negative Assess/Plan/Problems-Billing Assessment: 36 yo F with h/o IVDU with MRSA bacteremia - Patient Problems (1) Tobacco abuse Current Visit: Yes Status: Acute Code(s): Z72.0 - TOBACCO USE SNOMED Code( s): 996664847 Comment: Change to 7 mg dose of nicotine patch. (2) Anemia Current Visit: Yes Status: Acute Code(s): D64.9 - ANEMIA, UNSPECIFIED SNOMED Code(s): 723219416 Comment: Iron deficiency anemia likely related to menstrual blood loss, with slight worsening. Stool heme neg, no acute bleeding. will monitor. FeSO4 325 mg bid started 04/21. Hct 23 on 04/23/17. Iron sucrose 200 mg IV 04/23/17. Continue oral FeSO4 325 mg bid. (3) Constipation Current Visit: Yes Status: Acute Code(s): K59.00 - CONSTIPATION, UNSPECIFIED SNOMED Code(s): 07142124 Comment: Reduce PEG to 17 gm daily 05/03. (4) Infectious myositis Current Visit: Yes Status: Acute Code(s): M60.009 - INFECTIVE MYOSITIS, UNSPECIFIED SITE SNOMED Code(s): 32855098 Comment: R iliacus involvement. Continue antibiotics and analgesics. Not drainable per Dr. Mohan. Repeat CT pelvis shows muslce edema, but no drainable collection. 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 Mohan. cont on Oxycodone/oxycontin Blood cx from 04/29 positive. Two sets of blood cx drawn on 05/02/17. CT pelvis 04/29 showed extensive subcut edema but no abcess. Vanco stopped 05/04 due to drug rash, linezolid started. Discussed with Dr. Michael. Last day of antibiotic May. 4. Repeat echo before end of course. CRP weekly, wait until drug reaction subsided. Status and Disposition: inpatient. Once blood cx neg can have PICC placed and made SWING. For now cont midline and f/u blood cx
[2017-05-04] MEDS ORDERED: Linezolid 600 MG IVPREMIX(*) 600 MG/300 ML BAG IVPB SCH (18:00)
[2017-05-04] MEDS ORDERED: Vancomycin(*) 750 MG in NS 0.9% 250 ML* 250 ML IVPB SCH (18:00)
[2017-05-04] MEDS: Nicotine Patch Removal NOTE PATCH OFF SCH (21:03)
[2017-05-05] MEDS: Linezolid 600 MG IVPREMIX(*) 600 MG/300 ML BAG IVPB SCH ×2 (04:58→17:44)
[2017-05-05] MEDS: oxyCODONE TAB* 5 MG TAB PO PRN ×4 (05:06→19:37)
[2017-05-05] MEDS: Omeprazole CAP* 20 MG PO SCH (07:13)
[2017-05-05] MEDS: Heparin VIAL(*) 5000 UNITS/ML VIAL (FIVE THOUSAND) SUBCUT SCH ×3 (07:14→21:26)
[2017-05-05] MEDS: tiZANidine TAB* 2 MG PO SCH ×4 (09:36→21:25)
[2017-05-05] MEDS: Ferrous Sulfate TAB* 325 MG PO SCH ×2 (09:36→17:44)
[2017-05-05] MEDS: oxyCODONE SR TAB(*) 15 MG TAB.SR PO SCH ×2 (09:36→21:25)
[2017-05-05] MEDS: Hydrocortisone 1% CREAM* 30 GM TUBE TOPICAL SCH ×2 (09:37→21:25)
[2017-05-05] MEDS: Nicotine PATCH 7 MG/24 HR* PATCH TRANSDERM SCH (09:37)
[2017-05-05] MEDS: Polyethylene Glycol 3350* 17 GM PACKET PO SCH (09:38)
--- NOTE | 2017-05-05 11:22 | PN ---
Subjective Date of Service: 05/05/17 Interval History: Iching much improved, rash subsided some in color, no new lesions. Objective Active Medications: Acetaminophen (Tylenol Tab*) 650 mg PO Q6H PRN PRN Reason: pain/fever Last Admin: 04/30/17 15:20 Dose: 650 mg Al Hydrox/Mg Hydrox/Simethicone (Maalox Plus*) 30 ml PO Q2H PRN PRN Reason: DYSPEPSIA Last Admin: 04/27/17 08:10 Dose: 30 ml Ferrous Sulfate (Ferrous Sulfate Tab*) 325 mg PO 0900,1730 [facility] Last Admin: 05/05/17 09:36 Dose: 325 mg Heparin Sodium (Porcine) (Heparin Vial(*)) 5,000 units SUBCUT Q8HR [facility] Last Admin: 05/05/17 07:14 Dose: 5,000 units Heparin Sodium (Porcine) (Heparin Flush Picc/Ml/Cvc(*)) 1 - 3 ml FLUSH 0600, 1800 [facility] PRN Reason: Protocol Last Admin: 05/05/17 07:35 Dose: 1 ml Hydrocortisone (Hytone Cream 1%*) 1 applic TOPICAL BID [facility] Last Admin: 05/05/17 09:37 Dose: 1 applic Linezolid (Zyvox 600 Mg Ivpremix(*)) 600 mg in 300 mls @ 300 mls/hr IVPB 0500, 1700 [facility] Last Admin: 05/05/17 04:58 Dose: 300 mls/hr Ibuprofen (Motrin Tab*) 600 mg PO Q6H PRN PRN Reason: PAIN Last Admin: 05/04/17 21:01 Dose: 600 mg Lorazepam (Ativan Tab(*)) 0.5 mg PO Q6H PRN PRN Reason: ANXIETY Last Admin: 05/04/17 21:01 Dose: 0.5 mg Magnesium Hydroxide (Milk Of Magnesia Liq*) 30 ml PO Q4H PRN PRN Reason: CONSTIPATION Nicotine (Nicotine Inhaler*) 10 mg INH Q2H PRN PRN Reason: CRAVING Last Admin: 05/02/17 14:58 Dose: 10 mg Nicotine (Nicotine Patch 7 Mg/24 Hr*) 1 patch TRANSDERM DAILY [facility] Last Admin: 05/05/17 09:37 Dose: 1 patch Nicotine Polacrilex (Nicotine Gum*) 2 mg PO Q2H PRN PRN Reason: CRAVING Omeprazole (Prilosec Cap*) 20 mg PO 0600 [facility] Last Admin: 05/05/17 07:13 Dose: 20 mg Ondansetron HCl (Zofran Inj*) 4 mg IV Q6H PRN PRN Reason: NAUSEA Oxycodone HCl (Roxycodone Tab*) 10 mg PO Q4H PRN PRN Reason: PAIN Last Admin: 05/05/17 11:03 Dose: 10 mg Oxycodone HCl (Oxycontin(*)) 15 mg PO BID [facility] Last Admin: 05/05/17 09:36 Dose: 15 mg Pharmacy Profile Note (Nicotine Patch Removal Note*) 1 note PATCH OFF 2100 [facility] Last Admin: 05/04/17 21:03 Dose: 1 note Polyethylene Glycol/Electrolytes (Miralax*) 17 gm PO DAILY [facility] Last Admin: 05/05/17 09:38 Dose: Not Given Tizanidine HCl (Zanaflex Tab*) 2 mg PO QID [facility] Last Admin: 05/05/17 09:36 Dose: 2 mg Vital Signs 05/04/17 05/04/17 05/04/17 14:10 15:36 16:10 Temperature 98.4 F Pulse Rate 59 Respiratory 16 16 14 Rate Blood Pressure 93/44 (mmHg) O2 Sat by Pulse 94 Oximetry 05/04/17 05/04/17 05/04/17 20:00 21:01 23:01 Temperature Pulse Rate Respiratory 16 16 15 Rate Blood Pressure (mmHg) O2 Sat by Pulse Oximetry 05/05/17 05/05/17 05/05/17 00:11 05:06 08:00 Temperature 98.8 F Pulse Rate 56 Respiratory 16 16 18 Rate Blood Pressure 94/52 (mmHg) O2 Sat by Pulse 93 Oximetry 05/05/17 05/05/17 09:36 11:03 Temperature Pulse Rate Respiratory 16 18 Rate Blood Pressure (mmHg) O2 Sat by Pulse Oximetry Oxygen Devices in Use Now: None Appearance: Alert, in a chair. In good spirits. Looks comfortable. Eyes: No Scleral Icterus Extremities: No Edema, No Clubbing, Cyanosis, - Skin: No Nodules or Sclerosis, - - rash on legs less red, same or fewer number of macules. Neurological: Alert and Oriented x 3, NL Sensation Result Diagrams: 05/01/17 15:59 05/04/17 10:41 Microbiology and Other Data: Microbiology 04/20/17 19:15 Nasal Screen MRSA (PCR)([facility]ETSEY) - Final Nasal Mrsa Negative Assess/Plan/Problems-Billing Assessment: 36 yo F with h/o IVDU with MRSA bacteremia - Patient Problems (1) Tobacco abuse Current Visit: Yes Status: Acute Code(s): Z72.0 - TOBACCO USE SNOMED Code( s): 527490899 Comment: Continue 7 mg nicotine patch. (2) Anemia Current Visit: Yes Status: Acute Code(s): D64.9 - ANEMIA, UNSPECIFIED SNOMED Code(s): 434148825 Comment: Iron deficiency anemia likely related to menstrual blood loss. Stool heme neg. FeSO4 325 mg bid started 04/21. Iron sucrose 200 mg IV 04/23/17 and 05/02/17. CBC 05/10. (3) Constipation Current Visit: Yes Status: Acute Code(s): K59.00 - CONSTIPATION, UNSPECIFIED SNOMED Code(s): 71631478 Comment: Reduce PEG to 17 gm daily 05/03. (4) Infectious myositis Current Visit: Yes Status: Acute Code(s): M60.009 - INFECTIVE MYOSITIS, UNSPECIFIED SITE SNOMED Code(s): 67016927 Comment: R iliacus involvement. Continue antibiotics and analgesics. Not drainable per Dr. Mohan. Repeat CT pelvis shows muslce edema, but no drainable collection. CRP improving. I will wait until 05/10 to re-check CRP to allow time for her allergic reaction to subside more. 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 Mohan. cont on Oxycodone/oxycontin Blood cx from 04/29 positive. Two sets of blood cx drawn on 05/02/17, one "set " was a single pediatric bottle which will support aerobes and anaerobes. CT pelvis 04/29 showed extensive subcut edema but no abcess. Vanco stopped 05/04 due to drug rash, linezolid started. Discussed with Dr. Michael. Last day of antibiotic May. 4. Repeat echo before end of course. CRP weekly, wait until drug reaction subsided. Status and Disposition: inpatient. Once blood cx neg can have PICC placed and made SWING. For now cont midline and f/u blood cx
[2017-05-05] MEDS: LORazepam TAB(*) 0.5 MG PO PRN (19:37)
[2017-05-05] MEDS: Nicotine Patch Removal NOTE PATCH OFF SCH (21:26)
[2017-05-06] MEDS: oxyCODONE TAB* 5 MG TAB PO PRN ×5 (00:12→20:30)
[2017-05-06] MEDS: Linezolid 600 MG IVPREMIX(*) 600 MG/300 ML BAG IVPB SCH ×2 (07:47→16:35)
[2017-05-06] MEDS: Heparin VIAL(*) 5000 UNITS/ML VIAL (FIVE THOUSAND) SUBCUT SCH ×3 (07:48→22:12)
[2017-05-06] MEDS: Omeprazole CAP* 20 MG PO SCH (07:49)
[2017-05-06] MEDS: oxyCODONE SR TAB(*) 15 MG TAB.SR PO SCH ×2 (08:11→22:12)
[2017-05-06] MEDS: Ferrous Sulfate TAB* 325 MG PO SCH ×2 (08:11→16:35)
[2017-05-06] MEDS: tiZANidine TAB* 2 MG PO SCH ×4 (08:11→22:12)
[2017-05-06] MEDS: Nicotine PATCH 7 MG/24 HR* PATCH TRANSDERM SCH (08:11)
[2017-05-06] MEDS: Hydrocortisone 1% CREAM* 30 GM TUBE TOPICAL SCH ×2 (08:12→22:11)
[2017-05-06] MEDS: LORazepam TAB(*) 0.5 MG PO PRN ×2 (08:12→18:11)
[2017-05-06] MEDS: Polyethylene Glycol 3350* 17 GM PACKET PO SCH (08:22)
[2017-05-06] MEDS ORDERED: Vancomycin Trough Check NOTE FOLLOW UP ONE (10:00)
[2017-05-06] MEDS ORDERED: Fluconazole 100 MG TAB* TAB PO ONE (13:28)
[2017-05-06] MEDS ORDERED: LORazepam TAB(*) 0.5 MG PO PRN (13:29)
--- NOTE | 2017-05-06 13:37 | PN ---
Subjective Date of Service: 05/06/17 Interval History: Feels like right hip "catches" Not asking for increase in pain medication but notes hip is painful Anxious about placement of PICC Feels as though she has a vaginal yeast infection OOB and has walked around entire unit Objective Active Medications: Acetaminophen (Tylenol Tab*) 650 mg PO Q6H PRN PRN Reason: pain/fever Last Admin: 04/30/17 15:20 Dose: 650 mg Al Hydrox/Mg Hydrox/Simethicone (Maalox Plus*) 30 ml PO Q2H PRN PRN Reason: DYSPEPSIA Last Admin: 04/27/17 08:10 Dose: 30 ml Ferrous Sulfate (Ferrous Sulfate Tab*) 325 mg PO 0900,1730 [facility] Last Admin: 05/06/17 08:11 Dose: 325 mg Fluconazole (Diflucan 100 Mg Tab*) 150 mg PO ONCE ONE Stop: 05/06/17 13:29 Heparin Sodium (Porcine) (Heparin Vial(*)) 5,000 units SUBCUT Q8HR [facility] Last Admin: 05/06/17 07:48 Dose: Not Given Heparin Sodium (Porcine) (Heparin Flush Picc/Ml/Cvc(*)) 1 - 3 ml FLUSH 0600, 1800 [facility] PRN Reason: Protocol Last Admin: 05/06/17 07:48 Dose: Not Given Hydrocortisone (Hytone Cream 1%*) 1 applic TOPICAL BID [facility] Last Admin: 05/06/17 08:12 Dose: 1 applic Linezolid (Zyvox 600 Mg Ivpremix(*)) 600 mg in 300 mls @ 300 mls/hr IVPB 0500, 1700 [facility] Last Admin: 05/06/17 07:47 Dose: Not Given Ibuprofen (Motrin Tab*) 600 mg PO Q6H PRN PRN Reason: PAIN Last Admin: 05/04/17 21:01 Dose: 600 mg Lorazepam (Ativan Tab(*)) 0.5 mg PO Q6H PRN PRN Reason: ANXIETY Last Admin: 05/06/17 08:12 Dose: 0.5 mg Lorazepam (Ativan Tab(*)) 0.5 mg PO ONCE PRN PRN Reason: ANXIETY Magnesium Hydroxide (Milk Of Magnesia Liq*) 30 ml PO Q4H PRN PRN Reason: CONSTIPATION Nicotine (Nicotine Inhaler*) 10 mg INH Q2H PRN PRN Reason: CRAVING Last Admin: 05/02/17 14:58 Dose: 10 mg Nicotine (Nicotine Patch 7 Mg/24 Hr*) 1 patch TRANSDERM DAILY [facility] Last Admin: 05/06/17 08:11 Dose: 1 patch Nicotine Polacrilex (Nicotine Gum*) 2 mg PO Q2H PRN PRN Reason: CRAVING Omeprazole (Prilosec Cap*) 20 mg PO 0600 [facility] Last Admin: 05/06/17 07:49 Dose: Not Given Ondansetron HCl (Zofran Inj*) 4 mg IV Q6H PRN PRN Reason: NAUSEA Oxycodone HCl (Roxycodone Tab*) 10 mg PO Q4H PRN PRN Reason: PAIN Last Admin: 05/06/17 12:40 Dose: 10 mg Oxycodone HCl (Oxycontin(*)) 15 mg PO BID [facility] Last Admin: 05/06/17 08:11 Dose: 15 mg Pharmacy Profile Note (Nicotine Patch Removal Note*) 1 note PATCH OFF 2099 [facility] Last Admin: 05/05/17 21:26 Dose: 1 note Polyethylene Glycol/Electrolytes (Miralax*) 17 gm PO DAILY [facility] Last Admin: 05/06/17 08:22 Dose: Not Given Tizanidine HCl (Zanaflex Tab*) 2 mg PO QID [facility] Last Admin: 05/06/17 12:40 Dose: 2 mg Vital Signs 05/05/17 05/05/17 05/05/17 14:43 14:58 16:43 Temperature 98.2 F Pulse Rate 74 Respiratory 18 17 18 Rate Blood Pressure 105/48 (mmHg) O2 Sat by Pulse 96 Oximetry 05/05/17 05/05/17 05/05/17 19:35 19:37 21:25 Temperature Pulse Rate Respiratory 18 18 18 Rate Blood Pressure (mmHg) O2 Sat by Pulse Oximetry 05/05/17 05/06/17 05/06/17 21:37 00:05 00:12 Temperature 98.6 F Pulse Rate 58 Respiratory 20 16 14 Rate Blood Pressure 107/58 (mmHg) O2 Sat by Pulse 92 Oximetry 05/06/17 05/06/17 05/06/17 07:56 08:00 08:10 Temperature 99.3 F Pulse Rate 61 Respiratory 18 18 18 Rate Blood Pressure 110/71 (mmHg) O2 Sat by Pulse 94 Oximetry 05/06/17 05/06/17 05/06/17 08:11 08:12 12:33 Temperature Pulse Rate Respiratory 18 18 18 Rate Blood Pressure (mmHg) O2 Sat by Pulse Oximetry 05/06/17 12:40 Temperature Pulse Rate Respiratory 18 Rate Blood Pressure (mmHg) O2 Sat by Pulse Oximetry Oxygen Devices in Use Now: None Appearance: sitting in chair, NAD Eyes: No Scleral Icterus Ears/Nose/Mouth/Throat: NL Teeth, Lips, Gums, Clear Oropharnyx Neck: NL Appearance and Movements; NL JVP, Trachea Midline Respiratory: Symmetrical Chest Expansion and Respiratory Effort, Clear to Auscultation Cardiovascular: RRR, - - early soft 1/6 FELICIA LLSB Abdominal: NL Sounds; No Tenderness; No Distention, No Hepatosplenomegaly Lymphatic: No Cervical Adenopathy Extremities: No Edema Skin: No Rash or Ulcers Neurological: Alert and Oriented x 3 Result Diagrams: 05/01/17 15:59 05/04/17 10:41 Microbiology and Other Data: Microbiology 04/20/17 19:15 Nasal Screen MRSA (PCR)(BETSEY) - Final Nasal Mrsa Negative Assess/Plan/Problems-Billing Assessment: 36 yo F with h/o IVDU with MRSA bacteremia - Patient Problems (1) Vaginitis Comment: diflucan x 1 (2) Tobacco abuse Comment: Continue 7 mg nicotine patch. nicotine gum and inhaler (3) Anemia Comment: Iron deficiency anemia likely related to menstrual blood loss. Stool heme neg. FeSO4 325 mg bid started 04/21. Iron sucrose 200 mg IV 04/23/17 and 05/02/17. CBC 05/10. 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 Cortez, Dr. Mohan does not feel RP space is drainable. MRI hip without e/o septic joint cont on Oxycodone/oxycontin Two sets of blood cx drawn on 05/02/17, one "set" was a single pediatric bottle which will support aerobes and anaerobes - NGTD CT pelvis 04/29 showed extensive subcut edema but no abcess. Vanco stopped 05/04 due to drug rash, linezolid started. Last day of antibiotic Dec. 4. Repeat echo before end of course. CRP weekly (5) Infectious myositis Comment: R iliacus involvement. Continue antibiotics and analgesics. Not drainable per Dr. Mohan. Repeat CT pelvis shows muslce edema, but no drainable collection. re-check CRP 05/10 to allow time for her allergic reaction to subside more. (6) DVT prophylaxis Comment: HSQ Status and Disposition: inpatient. Once blood cx neg can have PICC placed and made SWING. For now cont midline and f/u blood cx
[2017-05-06] MEDS: Nicotine Patch Removal NOTE PATCH OFF SCH (22:11)
[2017-05-06] MEDS: Nystatin CREAM* 15 GM TUBE TOPICAL SCH (22:12)
[2017-05-07] MEDS: oxyCODONE TAB* 5 MG TAB PO PRN ×3 (05:05→14:42)
[2017-05-07] MEDS: Linezolid 600 MG IVPREMIX(*) 600 MG/300 ML BAG IVPB SCH (05:05)
[2017-05-07] MEDS: Omeprazole CAP* 20 MG PO SCH (06:12)
[2017-05-07] MEDS: Heparin VIAL(*) 5000 UNITS/ML VIAL (FIVE THOUSAND) SUBCUT SCH ×2 (06:12→14:42)
[2017-05-07] MEDS: Polyethylene Glycol 3350* 17 GM PACKET PO SCH (08:48)
[2017-05-07] MEDS: Nicotine PATCH 7 MG/24 HR* PATCH TRANSDERM SCH (08:57)
[2017-05-07] MEDS: tiZANidine TAB* 2 MG PO SCH ×2 (08:57→14:42)
[2017-05-07] MEDS: oxyCODONE SR TAB(*) 15 MG TAB.SR PO SCH (08:57)
[2017-05-07] MEDS: Ibuprofen TAB* 600 MG PO PRN (08:57)
[2017-05-07] MEDS: Ferrous Sulfate TAB* 325 MG PO SCH (08:57)
[2017-05-07] MEDS: Hydrocortisone 1% CREAM* 30 GM TUBE TOPICAL SCH (08:58)
[2017-05-07] MEDS: Nystatin CREAM* 15 GM TUBE TOPICAL SCH ×2 (08:58→14:43)
[2017-05-07 09:07] VITALS: BP 116/74
[2017-05-07] MEDS: LORazepam TAB(*) 0.5 MG PO PRN ×2 (09:22→15:31)
--- NOTE | 2017-05-07 21:16 | HP ---
ADMISSION HISTORY AND PHYSICAL AND DISCHARGE SUMMARY: DATE OF ADMISSION: 04/20/17 DATE OF DISCHARGE TO SWING STATUS: 05/07/17 PRIMARY CARE PHYSICIAN: None. PRIMARY DIAGNOSIS: Infective endocarditis. SECONDARY DIAGNOSIS: Include right hip myositis. MEDICATIONS: At the time of transfer to swing status: 1. Acetaminophen 650 mg every 6 hours as needed for pain or fever. 2. Maalox Plus 30 mL every 2 hours as needed for dyspepsia. 3. Ferrous sulfate 325 mg twice daily. 4. Subcu heparin 5000 units 3 times a day. 5. Hydrocortisone cream 1% topically twice daily. 6. Linezolid 600 mg twice daily. 7. Ibuprofen 600 mg every 6 hours as needed for pain. 8. Lorazepam 0.5 mg oral as needed for anxiety every 6 hours. 9. Milk of magnesia 30 mL every 4 hours as needed for constipation. 10. Nicotine inhaler 10 mg every 2 hours as needed for craving. 11. Nicotine patch 7 mg daily. 12. Omeprazole 20 mg daily. 13. Zofran 4 mg every 6 hours as needed for nausea. 14. Oxycodone 10 mg every 4 hours as needed for pain. 15. OxyContin 15 mg twice daily. 16. MiraLAX 17 g daily as needed for constipation. 17. Zanaflex 2 mg 4 times a day. HISTORY OF PRESENT ILLNESS AND HOSPITAL COURSE: This is a 36-year-old female with past medical history including back pain as well as IV drug use, reportedly last use 1 month prior to presentation, presents to the hospital with 3 days of rigors and right-sided hip pain. On presentation, she was febrile with a T-max of 102.8. There was concern for infective endocarditis and a transthoracic echocardiogram was performed on 04/20/17 that was notable for a mass on the tricuspid valve. Additionally, there was concern for a septic hip or back given pain in these regions. MRI of her hip was performed, which was notable for fluid in the right retroperitoneal space with associated edema in the right iliac muscle concerning for a right retroperitoneal soft tissue infection. In conjunction with Radiology, there was not thought to be isolated fluid that was amenable to being removed transcutaneously. Lumbar and thoracic MRIs were unremarkable. The patient was seen in conjunction with Orthopedics as well as Infectious Disease consultations. Microbiology was notable for MRSA and multiple blood cultures. The patient was started on vancomycin; however, had developed a rash on 05/04/17, for which linezolid was started and vancomycin was discontinued. Her last day of antibiotics is to be 05/31/17. Other notable events during her hospital stay were notable for iron deficiency anemia with a negative stool Hemoccult for which she was started on iron and received 2 doses of Venofer, constipation improved with MiraLAX. After completed therapy for infectious myositis of the right iliac muscle and infective tricuspid valve endocarditis, the patient will be discharged directly to drug rehab. At the time of her transfer to swing status, the patient was ambulatory walking multiple times around the unit. She is being treated with topical nystatin for fungal infection in her bilateral groin area. Her pain is largely controlled on current dose of current opioids. No other complications during the course of hospital stay. FAMILY HISTORY: Significant for mother without notable medical history. SOCIAL HISTORY: Notable for current tobacco use. No alcohol. Recent IV drug use. Her mother is the healthcare proxy. PHYSICAL EXAMINATION On the day of transition to swing, the patient seen and examined, she is alert and oriented. Oropharynx is clear. She has moist mucous membranes. She has regular rate and rhythm. Soft 2/6 systolic ejection murmur, best heard at the left lower sternal border. Her lungs are clear to auscultation. Abdomen is soft, nontender, nondistended. Extremities are warm, well perfused, without clubbing, cyanosis, or edema. She has a PICC line in her right antecubital fossa. Her skin is dry and intact. She has several areas of psoriatic skin lesions, left elbow and her occiput. She has a red beefy rash in her groin, improving with nystatin. She is alert and oriented x3. Her cranial nerves II through XII are intact. She has 5/5 strength throughout. She has no apparent anxiety, agitation, or depression. PLAN: Her continued plan will be as follows: 1. Tobacco abuse. Continue nicotine patch and inhaler. 2. Fungal infection in bilateral groins. Continue nystatin 3 times a daily. 3. Anemia. Continue iron. 4. Endocarditis. Continue linezolid, last date 05/31/17. Consider repeat echocardiogram before discharge. 5. Infectious myositis. Continue antibiotics as above. 6. DVT prophylaxis. Heparin subcu. [id number]/[facility] #: [id number] [facility]
== END 2017-05-07 15:48 | disposition swing bed (61) | DRG 720 ==
LOC: MEDTELE 18:05
PROVIDERS: ADMIT Internal Medicine; ATTEND Internal Medicine
PROC: 02HV33Z Insertion of Infusion Device into Superior Vena Cava, Percutaneous Approach (ICD-10-PCS; principal; 2017-05-07)
DX: A41.02 Sepsis due to Methicillin resistant Staphylococcus aureus (principal); I33.0 Acute and subacute infective endocarditis; M60.08 Infective myositis, other site; J90 Pleural effusion, not elsewhere classified; D50.9 Iron deficiency anemia, unspecified; F17.200 Nicotine dependence, unspecified, uncomplicated; F19.90 Other psychoactive substance use, unspecified, uncomplicated; K59.00 Constipation, unspecified; M79.1 Myalgia; B95.62 Methicillin resistant Staphylococcus aureus infection as the cause of diseases classified elsewhere; M51.36 Other intervertebral disc degeneration, lumbar region; Z88.8 Allergy status to other drugs, medicaments and biological substances; Z85.9 Personal history of malignant neoplasm, unspecified; Z23 Encounter for immunization; R07.81 Pleurodynia; R21 Rash and other nonspecific skin eruption; R11.2 Nausea with vomiting, unspecified
CPT/HCPCS: 36415; 71010; 71020; 72131; 72157; 72158; 72192; 80048; 80053; 80202; 81003; 81015; 82272; 82565; 82728; 83540; 83550; 84520; 85014; 85018; 85025; 85027; 85060; 85610; 85652; 86140; 87040; 87077; 87086; 87150; 87186; 87205; 87641; 90686; 90732; 93306; A9270-GY; A9579; C1751; J0692; J1170; J1644; J1756; J2020; J2270; J2543; J3370

== ENCOUNTER 2017-05-07 15:51 | Inpatient (IN) | payer MEDICAID ==
[2017-05-07] MEDS ORDERED: Al Hydrox/Mg Hydrox/Simet LIQ* 30 ML UDC PO PRN (17:20)
[2017-05-07] MEDS ORDERED: Magnesium Hydroxide LIQ* 30 ML UDC PO PRN (17:21)
[2017-05-07] MEDS ORDERED: Nicotine GUM* 2 MG PO PRN (17:21)
[2017-05-07] MEDS ORDERED: Ondansetron INJ* 2 MG/ML VIAL IV PRN (17:23)
[2017-05-07] MEDS: Linezolid 600 MG IVPREMIX(*) 600 MG/300 ML BAG IVPB SCH (17:48)
[2017-05-07] MEDS: Ferrous Sulfate TAB* 325 MG PO SCH (17:48)
[2017-05-07] MEDS: oxyCODONE TAB* 5 MG TAB PO PRN (17:52)
[2017-05-07] MEDS: tiZANidine TAB* 2 MG PO SCH (21:41)
[2017-05-07] MEDS: oxyCODONE SR TAB(*) 15 MG TAB.SR PO SCH (21:41)
[2017-05-07] MEDS: Nicotine Patch Removal NOTE PATCH OFF SCH (21:41)
[2017-05-07] MEDS: Heparin VIAL(*) 5000 UNITS/ML VIAL (FIVE THOUSAND) SUBCUT SCH (21:42)
[2017-05-07] MEDS: Nystatin CREAM* 30 GM TOPICAL SCH (21:44)
[2017-05-07] MEDS: Hydrocortisone 1% CREAM* 30 GM TUBE TOPICAL SCH (21:45)
[2017-05-08] MEDS: oxyCODONE TAB* 5 MG TAB PO PRN ×2 (04:16→12:41)
[2017-05-08] MEDS: LORazepam TAB(*) 0.5 MG PO PRN ×2 (04:16→20:22)
[2017-05-08] MEDS: Linezolid 600 MG IVPREMIX(*) 600 MG/300 ML BAG IVPB SCH ×2 (05:41→16:50)
[2017-05-08] MEDS: Heparin VIAL(*) 5000 UNITS/ML VIAL (FIVE THOUSAND) SUBCUT SCH ×3 (05:50→20:22)
[2017-05-08] MEDS: Omeprazole CAP* 20 MG PO SCH (05:50)
[2017-05-08] MEDS: oxyCODONE SR TAB(*) 15 MG TAB.SR PO SCH ×2 (08:57→20:22)
[2017-05-08] MEDS: tiZANidine TAB* 2 MG PO SCH ×4 (08:57→19:58)
[2017-05-08] MEDS: Ferrous Sulfate TAB* 325 MG PO SCH ×2 (08:57→16:51)
[2017-05-08] MEDS: Hydrocortisone 1% CREAM* 30 GM TUBE TOPICAL SCH ×2 (08:58→19:57)
[2017-05-08] MEDS: Nystatin CREAM* 30 GM TOPICAL SCH ×3 (08:58→19:57)
[2017-05-08] MEDS: Nicotine PATCH 14 MG/24 HR* PATCH TRANSDERM SCH (09:00)
[2017-05-08] MEDS: Polyethylene Glycol 3350* 17 GM PACKET PO SCH (09:01)
[2017-05-08] MEDS: Acetaminophen TAB* 325 MG PO PRN (10:31)
[2017-05-08] MEDS: Nicotine Patch Removal NOTE PATCH OFF SCH (19:57)
[2017-05-09] MEDS: oxyCODONE TAB* 5 MG TAB PO PRN ×3 (05:52→17:04)
[2017-05-09] MEDS: Heparin VIAL(*) 5000 UNITS/ML VIAL (FIVE THOUSAND) SUBCUT SCH ×3 (05:52→21:18)
[2017-05-09] MEDS: Omeprazole CAP* 20 MG PO SCH (05:53)
[2017-05-09] MEDS: Linezolid 600 MG IVPREMIX(*) 600 MG/300 ML BAG IVPB SCH ×2 (05:58→17:05)
[2017-05-09] MEDS: Nicotine PATCH 14 MG/24 HR* PATCH TRANSDERM SCH (07:55)
[2017-05-09] MEDS: Ferrous Sulfate TAB* 325 MG PO SCH ×2 (07:56→17:04)
[2017-05-09] MEDS: oxyCODONE SR TAB(*) 15 MG TAB.SR PO SCH ×2 (07:56→21:18)
[2017-05-09] MEDS: Polyethylene Glycol 3350* 17 GM PACKET PO SCH (07:56)
[2017-05-09] MEDS: Nystatin CREAM* 30 GM TOPICAL SCH ×3 (07:57→21:18)
[2017-05-09] MEDS: Hydrocortisone 1% CREAM* 30 GM TUBE TOPICAL SCH ×2 (07:57→21:18)
[2017-05-09] MEDS: tiZANidine TAB* 2 MG PO SCH ×4 (07:58→21:18)
[2017-05-09] MEDS: LORazepam TAB(*) 0.5 MG PO PRN ×2 (12:18→19:48)
[2017-05-09] MEDS: Nicotine Patch Removal NOTE PATCH OFF SCH (19:51)
[2017-05-10] MEDS: Omeprazole CAP* 20 MG PO SCH (05:41)
[2017-05-10] MEDS: oxyCODONE TAB* 5 MG TAB PO PRN ×4 (05:41→19:46)
[2017-05-10] MEDS: Linezolid 600 MG IVPREMIX(*) 600 MG/300 ML BAG IVPB SCH ×2 (05:43→16:54)
[2017-05-10] MEDS: Heparin VIAL(*) 5000 UNITS/ML VIAL (FIVE THOUSAND) SUBCUT SCH ×3 (05:48→21:23)
[2017-05-10] MEDS: Polyethylene Glycol 3350* 17 GM PACKET PO SCH (09:23)
[2017-05-10] MEDS: Nicotine PATCH 14 MG/24 HR* PATCH TRANSDERM SCH (09:23)
[2017-05-10] MEDS: Ibuprofen TAB* 600 MG PO PRN ×2 (09:24→16:55)
[2017-05-10] MEDS: Hydrocortisone 1% CREAM* 30 GM TUBE TOPICAL SCH ×2 (09:24→21:22)
[2017-05-10] MEDS: tiZANidine TAB* 2 MG PO SCH ×4 (09:24→21:20)
[2017-05-10] MEDS: Nystatin CREAM* 30 GM TOPICAL SCH ×3 (09:24→21:22)
[2017-05-10] MEDS: LORazepam TAB(*) 0.5 MG PO PRN ×2 (09:24→16:55)
[2017-05-10] MEDS: Ferrous Sulfate TAB* 325 MG PO SCH ×2 (09:24→16:55)
[2017-05-10] MEDS: oxyCODONE SR TAB(*) 15 MG TAB.SR PO SCH ×2 (09:24→21:20)
[2017-05-10] MEDS: Nicotine Patch Removal NOTE PATCH OFF SCH (21:22)
[2017-05-11] MEDS: LORazepam TAB(*) 0.5 MG PO PRN ×3 (02:50→19:59)
[2017-05-11] MEDS: oxyCODONE TAB* 5 MG TAB PO PRN ×3 (02:50→13:50)
[2017-05-11] MEDS: Ibuprofen TAB* 600 MG PO PRN (02:50)
[2017-05-11] MEDS: Linezolid 600 MG IVPREMIX(*) 600 MG/300 ML BAG IVPB SCH ×2 (05:42→17:29)
[2017-05-11] MEDS: Omeprazole CAP* 20 MG PO SCH (05:46)
[2017-05-11] MEDS: Heparin VIAL(*) 5000 UNITS/ML VIAL (FIVE THOUSAND) SUBCUT SCH ×2 (05:50→13:52)
[2017-05-11] MEDS: Polyethylene Glycol 3350* 17 GM PACKET PO SCH (09:04)
[2017-05-11] MEDS: Ferrous Sulfate TAB* 325 MG PO SCH ×2 (09:06→17:28)
[2017-05-11] MEDS: oxyCODONE SR TAB(*) 15 MG TAB.SR PO SCH ×2 (09:07→19:58)
[2017-05-11] MEDS: tiZANidine TAB* 2 MG PO SCH ×4 (09:08→19:59)
[2017-05-11] MEDS: Nicotine PATCH 14 MG/24 HR* PATCH TRANSDERM SCH (09:08)
[2017-05-11] MEDS: Nystatin CREAM* 30 GM TOPICAL SCH ×3 (09:10→19:59)
[2017-05-11] MEDS: Hydrocortisone 1% CREAM* 30 GM TUBE TOPICAL SCH ×2 (09:10→19:59)
[2017-05-11] MEDS ORDERED: Mouth Piece, Nicotine* 1 EACH CARTRIDGE ONE (09:14)
[2017-05-11] MEDS: Nicotine Inhaler* 10 MG AMP INH PRN (09:18)
[2017-05-11] MEDS: Nicotine Patch Removal NOTE PATCH OFF SCH (20:01)
[2017-05-12] MEDS: Linezolid 600 MG IVPREMIX(*) 600 MG/300 ML BAG IVPB SCH ×2 (05:29→16:46)
[2017-05-12] MEDS: oxyCODONE TAB* 5 MG TAB PO PRN ×3 (05:37→15:12)
[2017-05-12] MEDS: LORazepam TAB(*) 0.5 MG PO PRN ×2 (05:37→15:12)
[2017-05-12] MEDS: Omeprazole CAP* 20 MG PO SCH (05:37)
[2017-05-12] MEDS: Ferrous Sulfate TAB* 325 MG PO SCH ×2 (09:29→16:46)
[2017-05-12] MEDS: Ibuprofen TAB* 600 MG PO PRN (09:29)
[2017-05-12] MEDS: Polyethylene Glycol 3350* 17 GM PACKET PO SCH (09:29)
[2017-05-12] MEDS: tiZANidine TAB* 2 MG PO SCH ×4 (09:29→20:29)
[2017-05-12] MEDS: oxyCODONE SR TAB(*) 15 MG TAB.SR PO SCH (09:29)
[2017-05-12] MEDS: Nicotine PATCH 14 MG/24 HR* PATCH TRANSDERM SCH (09:30)
[2017-05-12] MEDS: Hydrocortisone 1% CREAM* 30 GM TUBE TOPICAL SCH ×2 (09:30→20:30)
[2017-05-12] MEDS: Nystatin CREAM* 30 GM TOPICAL SCH ×3 (09:30→20:30)
--- NOTE | 2017-05-12 17:31 | PN ---
Subjective Date of Service: 05/12/17 Interval History: Last seen 05/06 when switched to swing status. She has been optimistic and is anxious to go to rehab. She has gone outside with staff and is very pleased with this. She would like to titrate down her pain meds but this also is causing her some anxiety. She would also like to try a non benzodiazepine for anxiety. Objective Active Medications: Acetaminophen (Tylenol Tab*) 650 mg PO Q6H PRN PRN Reason: PAIN/FEVER Last Admin: 05/08/17 10:31 Dose: 650 mg Al Hydrox/Mg Hydrox/Simethicone (Maalox Plus*) 30 ml PO Q2H PRN PRN Reason: DYSPEPSIA Ferrous Sulfate (Ferrous Sulfate Tab*) 325 mg PO 0900,1730 [facility] Last Admin: 05/12/17 16:46 Dose: 325 mg Heparin Sodium (Porcine) (Heparin Flush Picc/Ml/Cvc(*)) 1 - 3 ml FLUSH 0600, 1800 [facility] PRN Reason: Protocol Last Admin: 05/12/17 06:40 Dose: 1 ml Hydrocortisone (Hytone Cream 1%*) 1 applic TOPICAL BID [facility] Last Admin: 05/12/17 09:30 Dose: 1 applic Linezolid (Zyvox 600 Mg Ivpremix(*)) 600 mg in 300 mls @ 300 mls/hr IVPB 0500, 1700 [facility] Last Admin: 05/12/17 16:46 Dose: 300 mls/hr Ibuprofen (Motrin Tab*) 600 mg PO Q6H PRN PRN Reason: PAIN Last Admin: 05/12/17 09:29 Dose: 600 mg Lorazepam (Ativan Tab(*)) 0.5 mg PO Q6H PRN PRN Reason: ANXIETY Last Admin: 05/12/17 15:12 Dose: 0.5 mg Magnesium Hydroxide (Milk Of Magnesia Liq*) 30 ml PO Q4H PRN PRN Reason: CONSTIPATION Last Admin: 05/10/17 16:54 Dose: 30 ml Nicotine (Nicotine Patch 14 Mg/24 Hr*) 1 patch TRANSDERM 0900 [facility] Last Admin: 05/12/17 09:30 Dose: 1 patch Nicotine (Nicotine Inhaler*) 10 mg INH Q2H PRN PRN Reason: CRAVINGS Last Admin: 11/14/17 09:18 Dose: 10 mg Nicotine Polacrilex (Nicotine Gum*) 2 mg PO Q2H PRN PRN Reason: CRAVINGS Nystatin (Nystatin Cream*) 1 applic TOPICAL TID [facility] Last Admin: 05/12/17 15:14 Dose: 1 applic Omeprazole (Prilosec Cap*) 20 mg PO 0600 [facility] Last Admin: 05/12/17 05:37 Dose: 20 mg Ondansetron HCl (Zofran Inj*) 4 mg IV Q6H PRN PRN Reason: NAUSEA Last Admin: 05/08/17 17:56 Dose: 4 mg Oxycodone HCl (Roxycodone Tab*) 10 mg PO Q4H PRN PRN Reason: PAIN Last Admin: 05/12/17 15:12 Dose: 10 mg Oxycodone HCl (Oxycontin(*)) 10 mg PO BID [facility] Pharmacy Profile Note (Nicotine Patch Removal Note*) 1 note PATCH OFF 2100 [facility] Last Admin: 05/11/17 20:01 Dose: 1 note Polyethylene Glycol/Electrolytes (Miralax*) 17 gm PO 0900 [facility] Last Admin: 05/12/17 09:29 Dose: 17 gm Tizanidine HCl (Zanaflex Tab*) 2 mg PO QID [facility] Last Admin: 05/12/17 15:13 Dose: 2 mg Vital Signs 05/11/17 05/11/17 05/11/17 19:58 19:59 20:00 Temperature Pulse Rate Respiratory 18 18 18 Rate Blood Pressure (mmHg) O2 Sat by Pulse Oximetry 05/11/17 05/12/17 05/12/17 22:21 05:37 07:40 Temperature 99.6 F Pulse Rate 69 Respiratory 18 17 20 Rate Blood Pressure 123/69 (mmHg) O2 Sat by Pulse 92 Oximetry 05/12/17 05/12/17 05/12/17 07:46 09:29 09:30 Temperature Pulse Rate Respiratory 15 16 16 Rate Blood Pressure (mmHg) O2 Sat by Pulse Oximetry 05/12/17 05/12/17 12:32 15:12 Temperature Pulse Rate Respiratory 16 16 Rate Blood Pressure (mmHg) O2 Sat by Pulse Oximetry Oxygen Devices in Use Now: None Appearance: NAD Eyes: No Scleral Icterus, PERRLA Ears/Nose/Mouth/Throat: NL Teeth, Lips, Gums, Clear Oropharnyx, Mucous Membranes Moist Neck: NL Appearance and Movements; NL JVP, Trachea Midline Respiratory: Symmetrical Chest Expansion and Respiratory Effort, Clear to Auscultation Cardiovascular: NL Sounds; No Murmurs; No JVD, RRR, No Edema Abdominal: NL Sounds; No Tenderness; No Distention, No Hepatosplenomegaly Lymphatic: No Cervical Adenopathy Extremities: No Edema Skin: No Rash or Ulcers Neurological: Alert and Oriented x 3, NL Muscle Strength and Tone Lines/Tubes/Other Access: Clean, Dry and Intact PICC Line - right AC Assess/Plan/Problems-Billing Assessment: 36 yo F with h/o IVDU now with MRSA bacteremia and endocarditis - Patient Problems (1) Anemia Comment: Iron deficiency anemia likely related to menstrual blood loss. FeSO4 325 mg bid started 04/21. Iron sucrose 200 mg IV 04/23/17 and 05/02/17. (2) Endocarditis Comment: Tricuspid valve endocarditis, vegetation 1.0 x 0.4 cm complicated by R iliacus myositis with infection in retroperitoneal space: Per conversation with Dr. Cortez, Dr. Mohan does not feel RP space is drainable. MRI hip without e/o septic joint cont on Oxycodone/oxycontin - cecreased oxycontin from 15mg BID to 10mg BID Two sets of blood cx drawn on 05/02/17, one "set" was a single pediatric bottle which will support aerobes and anaerobes - NGTD CT pelvis 04/29 showed extensive subcut edema but no abcess. Vanco stopped 05/04 due to drug rash, linezolid started. Last day of antibiotic Dec. 4. Repeat echo before end of course. CRP weekly (3) Infectious myositis Comment: R iliacus involvement. Continue antibiotics and analgesics. Not drainable per Dr. Mohan. Repeat CT pelvis shows muslce edema, but no drainable collection. re-check CRP 05/10 to allow time for her allergic reaction to subside more. (4) Tobacco abuse Comment: Continue 7 mg nicotine patch. nicotine gum and inhaler (5) DVT prophylaxis Comment: HSQ
[2017-05-12] MEDS: oxyCODONE SR TAB(*) 10 MG TAB.SR PO SCH (20:29)
[2017-05-12] MEDS: Nicotine Patch Removal NOTE PATCH OFF SCH (20:30)
[2017-05-13] MEDS: Omeprazole CAP* 20 MG PO SCH (05:19)
[2017-05-13] MEDS: Linezolid 600 MG IVPREMIX(*) 600 MG/300 ML BAG IVPB SCH ×2 (05:19→16:43)
[2017-05-13] MEDS: LORazepam TAB(*) 0.5 MG PO PRN ×3 (05:30→21:25)
[2017-05-13] MEDS: oxyCODONE TAB* 5 MG TAB PO PRN ×4 (05:30→18:28)
[2017-05-13] MEDS: Ferrous Sulfate TAB* 325 MG PO SCH ×2 (07:35→16:42)
[2017-05-13] MEDS: Polyethylene Glycol 3350* 17 GM PACKET PO SCH (07:35)
[2017-05-13] MEDS: tiZANidine TAB* 2 MG PO SCH ×4 (07:35→21:20)
[2017-05-13] MEDS: Acetaminophen TAB* 325 MG PO PRN (07:36)
[2017-05-13] MEDS: oxyCODONE SR TAB(*) 10 MG TAB.SR PO SCH ×2 (07:36→21:21)
[2017-05-13] MEDS: Nicotine PATCH 14 MG/24 HR* PATCH TRANSDERM SCH (07:36)
[2017-05-13] MEDS: Hydrocortisone 1% CREAM* 30 GM TUBE TOPICAL SCH ×2 (07:38→21:34)
[2017-05-13] MEDS: Nystatin CREAM* 30 GM TOPICAL SCH ×3 (07:38→21:35)
--- NOTE | 2017-05-13 17:48 | PN ---
Subjective Date of Service: 05/13/17 Interval History: Patient seen and examined at bedside. Denies shortness of breath, cough, nasal congestion, post nasal drip, chest discomfort, N/V/D, urinary symptoms. Pt reports a fever this AM and chills, right sided rib discomfort that she fells may be muscular, and general malaise. Family History: Unchanged from Admission Social History: Unchanged from Admission Past Medical History: Unchanged from Admission Objective Active Medications: Acetaminophen (Tylenol Tab*) 650 mg PO Q6H PRN Reason: PAIN/FEVER Al Hydrox/Mg Hydrox/Simethicone (Maalox Plus*) 30 ml PO Q2H PRN Reason: DYSPEPSIA Ferrous Sulfate (Ferrous Sulfate Tab*) 325 mg PO 0900,1730 [facility] Heparin Sodium (Porcine) (Heparin Flush Picc/Ml/Cvc(*)) 1 - 3 ml FLUSH 0600, 1800 [facility] Reason: Protocol Hydrocortisone (Hytone Cream 1%*) 1 applic TOPICAL BID [facility] Linezolid (Zyvox 600 Mg Ivpremix(*)) 600 mg in 300 mls @ 300 mls/hr IVPB 0500, 1700 [facility] Ibuprofen (Motrin Tab*) 600 mg PO Q6H PRN Reason: PAIN Lorazepam (Ativan Tab(*)) 0.5 mg PO Q6H PRN Reason: ANXIETY Magnesium Hydroxide (Milk Of Magnesia Liq*) 30 ml PO Q4H PRN Reason: CONSTIPATION Nicotine (Nicotine Patch 14 Mg/24 Hr*) 1 patch TRANSDERM 0900 [facility] Nicotine (Nicotine Inhaler*) 10 mg INH Q2H PRN Reason: CRAVINGS Nicotine Polacrilex (Nicotine Gum*) 2 mg PO Q2H PRN Reason: CRAVINGS Nystatin (Nystatin Cream*) 1 applic TOPICAL TID [facility] Omeprazole (Prilosec Cap*) 20 mg PO 0600 [facility] Ondansetron HCl (Zofran Inj*) 4 mg IV Q6H PRN Reason: NAUSEA Oxycodone HCl (Roxycodone Tab*) 10 mg PO Q4H PRN Reason: PAIN Oxycodone HCl (Oxycontin(*)) 10 mg PO BID [facility] Pharmacy Profile Note (Nicotine Patch Removal Note*) 1 note PATCH OFF 2100 [facility] Polyethylene Glycol/Electrolytes (Miralax*) 17 gm PO 0900 [facility] Tizanidine HCl (Zanaflex Tab*) 2 mg PO QID [facility] Vital Signs 05/13/17 05/13/17 05/13/17 00:18 05:30 07:30 Temperature 98.5 F 101.5 F Pulse Rate 59 83 Respiratory 20 18 18 Rate Blood Pressure 113/64 112/56 (mmHg) O2 Sat by Pulse 95 91 Oximetry 05/13/17 05/13/17 05/13/17 07:35 07:36 09:03 Temperature 99.3 F Pulse Rate Respiratory 19 19 Rate Blood Pressure (mmHg) O2 Sat by Pulse 94 Oximetry 05/13/17 05/13/17 05/13/17 09:36 09:37 09:40 Temperature 98.3 F 98.3 F Pulse Rate Respiratory 18 Rate Blood Pressure (mmHg) O2 Sat by Pulse Oximetry 05/13/17 05/13/17 16:42 16:48 Temperature 98 F Pulse Rate Respiratory 18 Rate Blood Pressure (mmHg) O2 Sat by Pulse Oximetry Oxygen Devices in Use Now: None Appearance: NAD, laying in bed Ears/Nose/Mouth/Throat: Mucous Membranes Moist Cardiovascular: NL Sounds; No Murmurs; No JVD, RRR Abdominal: NL Sounds; No Tenderness; No Distention Extremities: No Edema Neurological: Alert and Oriented x 3 Lines/Tubes/Other Access: Clean, Dry and Intact PICC Line - site benign Nutrition: Taking PO's Assess/Plan/Problems-Billing Assessment: Ms. Holloway is a 36 yo F with h/o IVDU now with MRSA bacteremia and endocarditis. - Patient Problems (1) Fever Code(s): R50.9 - FEVER, UNSPECIFIED SNOMED Code(s): 542630944 Comment: - Suspect viral illness - Febrile this AM with temp 101.5 - Will check chest xray and labs in the AM - No urinary symptoms (2) Endocarditis Code(s): I38 - ENDOCARDITIS, VALVE UNSPECIFIED SNOMED Code(s): 34814705 Comment: - Tricuspid valve endocarditis, vegetation 1.0 x 0.4 cm complicated by R iliacus myositis with infection in retroperitoneal space: Per conversation with Dr. Cortez, Dr. Mohan does not feel RP space is drainable. - MRI hip without e/o septic joint - Continue Oxycodone/oxycontin - decreased oxycontin from 15mg BID to 10mg BID 05/12 - Two sets of blood cx drawn on 05/02/17, one "set" was a single pediatric bottle which will support aerobes and anaerobes - No growth to date - CT pelvis 04/29 showed extensive subcut edema but no abcess. - Vanco stopped 05/04 due to drug rash, linezolid started. Last day of antibiotic May.31. - Repeat echo before end of course. - Weekly labs, including CBC, BMP and CRP (3) Infectious myositis Code(s): M60.009 - INFECTIVE MYOSITIS, UNSPECIFIED SITE SNOMED Code(s): 39671431 Comment: - R iliacus involvement. - Continue antibiotics and analgesics. Not drainable per Dr. Mohan. Repeat CT pelvis shows muslce edema, but no drainable collection. (4) Anemia Code(s): D64.9 - ANEMIA, UNSPECIFIED SNOMED Code(s): 859280480 Comment: - Iron deficiency anemia likely related to menstrual blood loss. - FeSO4 325 mg bid started 04/21. - Iron sucrose 200 mg IV 04/23/17 and 05/02/17. (5) Tobacco abuse Code(s): Z72.0 - TOBACCO USE SNOMED Code(s): 544401784 Comment: - Continue 7 mg nicotine patch, nicotine gum and inhaler PRN (6) DVT prophylaxis Code(s): UKF5570 - SNOMED Code(s): 308204211 Comment: - Encourage to ambulate (7) Full code status Code(s): Z78.9 - OTHER SPECIFIED HEALTH STATUS SNOMED Code(s): 429761423 Status and Disposition: Inpatient. Plan for discharge on 05/31 to Inpatient rehab.
[2017-05-13] MEDS: Nicotine Patch Removal NOTE PATCH OFF SCH (21:34)
--- NOTE | 2017-05-13 21:51 | RAD ---
Indication: Fever and hip pain. History of sepsis and endocarditis. Comparison: April 25, 2017 Technique: Dual energy PA and lateral chest views. Report: Moderate dependent RIGHT pleural effusion with associated basilar atelectasis. Mild airspace consolidation at the peripheral of the LEFT lung base. Clear LEFT pleural space. Negative for pneumothorax. Tip of RIGHT upper extremity PICC at the level of the proximal superior vena cava directed central. Negative for cardiomegaly. Unremarkable central pulmonary vasculature and mediastinal contours. IMPRESSION: Moderate dependent RIGHT pleural effusion increased over the prior exam with proportional atelectasis. RIGHT greater than LEFT basilar airspace consolidation similar to the prior exam with mild improvement on the LEFT suspicious for pneumonia given the clinical context.
[2017-05-14] MEDS: Linezolid 600 MG IVPREMIX(*) 600 MG/300 ML BAG IVPB SCH ×2 (05:16→16:14)
[2017-05-14] MEDS: Omeprazole CAP* 20 MG PO SCH (05:43)
[2017-05-14] MEDS: oxyCODONE TAB* 5 MG TAB PO PRN ×4 (05:44→20:17)
[2017-05-14] MEDS: LORazepam TAB(*) 0.5 MG PO PRN ×3 (05:44→16:15)
[2017-05-14 05:51] LABS: Hematocrit 28 % (35-47); Mean Corpuscular HGB Conc 32 g/dl (31-36); Mean Corpuscular Hemoglobin 24 pg (27-31); Mean Corpuscular Volume 75 fL (80-97); Mean Platelet Volume 6 um3 (7.4-10.4); Red Blood Count 3.76 10^6/ul (4.0-5.4); White Blood Count 6.6 10^3/ul (3.5-10.8)
[2017-05-14 05:55] LABS: Comments Flag Yes
[2017-05-14 05:56] LABS: Red Cell Distribution Width 24 % (10.5-15)
[2017-05-14 06:04] LABS: BUN/Creatinine Ratio 14.1 (8-20); C Reactive Protein 110.64 mg/L (< 5.00); Calcium 9.6 mg/dL (8.6-10.3); EGFR African American 119.8 (>60); EGFR Non-African American 93.1 (>60)
[2017-05-14] MEDS: tiZANidine TAB* 2 MG PO SCH ×4 (10:10→20:16)
[2017-05-14] MEDS: Ferrous Sulfate TAB* 325 MG PO SCH ×2 (10:10→16:15)
[2017-05-14] MEDS: oxyCODONE SR TAB(*) 10 MG TAB.SR PO SCH ×2 (10:11→20:16)
[2017-05-14] MEDS: Nicotine PATCH 14 MG/24 HR* PATCH TRANSDERM SCH (10:13)
[2017-05-14] MEDS: Hydrocortisone 1% CREAM* 30 GM TUBE TOPICAL SCH ×2 (10:14→20:21)
[2017-05-14] MEDS: Polyethylene Glycol 3350* 17 GM PACKET PO SCH (10:14)
[2017-05-14] MEDS: Nystatin CREAM* 30 GM TOPICAL SCH ×3 (10:14→20:17)
--- NOTE | 2017-05-14 10:20 | PN ---
Subjective Date of Service: 05/14/17 Interval History: Patient seen and examined at bedside. Denies fever, chills, shortness of breath , chest discomfort, N/V/D. Continues to complain of right sided rib pain and right thigh pain, Pt states that the right rib pain is worse than the thigh pain. Pt reports continued generalized malaise. Pt is very frustrated and just wants to get better, she is also upset because she doesn't have any family close by. Declined Daphne visit. Reports and occasional cough today that has been non-productive. Pt reports that pain has increased since her pain medication was decreased, but she doesn't want it increased again. Discussed with Pt the possibility of a thoracentesis and she is scared to have one and not willing to do it without sedation. Family History: Unchanged from Admission Social History: Unchanged from Admission Past Medical History: Unchanged from Admission Objective Active Medications: Acetaminophen (Tylenol Tab*) 650 mg PO Q6H PRN Reason: PAIN/FEVER Al Hydrox/Mg Hydrox/Simethicone (Maalox Plus*) 30 ml PO Q2H PRN Reason: DYSPEPSIA Ferrous Sulfate (Ferrous Sulfate Tab*) 325 mg PO 0900,1730 [facility] Heparin Sodium (Porcine) (Heparin Flush Picc/Ml/Cvc(*)) 1 - 3 ml FLUSH 0600, 1800 [facility] Heparin Sodium (Porcine) (Heparin Vial(*)) 5,000 units SUBCUT Q8HR [facility] Hydrocortisone (Hytone Cream 1%*) 1 applic TOPICAL BID [facility] Linezolid (Zyvox 600 Mg Ivpremix(*)) 600 mg in 300 mls @ 300 mls/hr IVPB 0500, 1700 [facility] Ibuprofen (Motrin Tab*) 600 mg PO Q6H PRN Reason: PAIN Lorazepam (Ativan Tab(*)) 0.5 mg PO Q6H PRN Reason: ANXIETY Magnesium Hydroxide (Milk Of Magnesia Liq*) 30 ml PO Q4H PRN Reason: CONSTIPATION Nicotine (Nicotine Patch 14 Mg/24 Hr*) 1 patch TRANSDERM 0900 [facility] Nicotine (Nicotine Inhaler*) 10 mg INH Q2H PRN Reason: CRAVINGS Nicotine Polacrilex (Nicotine Gum*) 2 mg PO Q2H PRN Reason: CRAVINGS Nystatin (Nystatin Cream*) 1 applic TOPICAL TID [facility] Omeprazole (Prilosec Cap*) 20 mg PO 0600 [facility] Ondansetron HCl (Zofran Inj*) 4 mg IV Q6H PRN Reason: NAUSEA Oxycodone HCl (Roxycodone Tab*) 10 mg PO Q4H PRN Reason: PAIN Oxycodone HCl (Oxycontin(*)) 10 mg PO BID [facility] Pharmacy Profile Note (Nicotine Patch Removal Note*) 1 note PATCH OFF 2100 [facility] Polyethylene Glycol/Electrolytes (Miralax*) 17 gm PO 0900 [facility] Tizanidine HCl (Zanaflex Tab*) 2 mg PO QID [facility] Vital Signs 05/13/17 05/13/17 05/13/17 12:01 12:02 14:02 Temperature Respiratory 18 18 15 Rate 05/13/17 05/13/17 05/13/17 16:42 16:48 18:28 Temperature 98 F Respiratory 18 16 Rate 05/13/17 05/13/17 05/13/17 19:10 21:21 21:25 Temperature Respiratory 18 18 18 Rate 05/13/17 05/14/17 05/14/17 21:35 01:24 05:44 Temperature Respiratory 18 18 16 Rate Oxygen Devices in Use Now: None Appearance: NAD, sitting up in a chair Respiratory: Symmetrical Chest Expansion and Respiratory Effort, Clear to Auscultation - , diminished in the bases right > left Cardiovascular: NL Sounds; No Murmurs; No JVD, RRR Abdominal: NL Sounds; No Tenderness; No Distention Extremities: No Edema Skin: No Rash or Ulcers Neurological: Alert and Oriented x 3, NL Muscle Strength and Tone Lines/Tubes/Other Access: Clean, Dry and Intact PICC Line - midline, site benign Nutrition: Taking PO's Result Diagrams: 05/14/17 05:30 05/14/17 05:30 Diagnostic Imagin/17 - CHEST PA & LAT 2 VWS IMPRESSION: Moderate dependent RIGHT pleural effusion increased over the prior exam with proportional atelectasis. RIGHT greater than LEFT basilar airspace consolidation similar to the prior exam with mild improvement on the LEFT suspicious for pneumonia given the clinical context. Assess/Plan/Problems-Billing Assessment: Ms. Holloway is a 36 yo F with h/o IVDU now with MRSA bacteremia and endocarditis. 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 - Vanco stopped 05/04 due to drug rash, linezolid started. Last day of antibiotic May.31. - Repeat echo 05/26/17. - Weekly labs, including CBC, BMP and CRP (2) Infectious myositis Code(s): M60.009 - INFECTIVE MYOSITIS, UNSPECIFIED SITE SNOMED Code(s): 37096436 Comment: - R iliacus involvement. - Continue antibiotics and analgesics. Not drainable per Dr. Mohan. Repeat CT pelvis shows muslce edema, but no drainable collection. (3) Pneumonia Code(s): J18.9 - PNEUMONIA, UNSPECIFIED ORGANISM SNOMED Code(s): 868756439 Comment: - Chest xray shows moderate dependent RIGHT pleural effusion increased over the prior exam with proportional atelectasis. RIGHT greater than LEFT basilar airspace consolidation similar to the prior exam with mild improvement on the LEFT suspicious for pneumonia given the clinical context - Afebrile since yesterday, no leukocytosis - In setting of increased pleural effusion on the right, fever and increased CRP will ask radiology to do a thoracentesis to rule out empyema - Will check a sputum culture and urine antigens for S. pneumo/legionella - Will start on Ceftriaxone (4) Anemia Code(s): D64.9 - ANEMIA, UNSPECIFIED SNOMED Code(s): 829585576 Comment: - HH improving. - Iron deficiency anemia likely related to menstrual blood loss. - FeSO4 325 mg bid started 04/21. - Iron sucrose 200 mg IV 04/23/17 and 05/02/17. (5) Tobacco abuse Code(s): Z72.0 - TOBACCO USE SNOMED Code(s): 581798785 Comment: - Continue 7 mg nicotine patch, nicotine gum and inhaler PRN (6) DVT prophylaxis Code(s): AJD9953 - SNOMED Code(s): 401467287 Comment: - Encourage to ambulate (7) Full code status Code(s): Z78.9 - OTHER SPECIFIED HEALTH STATUS SNOMED Code(s): 892228616 Status and Disposition: Inpatient. Plan for discharge on 05/31 to Inpatient rehab.
[2017-05-14] MEDS: cefTRIAXone VIAL(*) 1,000 MG in NS 0.9% 50 ML* 50 ML IVPB SCH (13:58)
[2017-05-14] MEDS: Heparin VIAL(*) 5000 UNITS/ML VIAL (FIVE THOUSAND) SUBCUT SCH ×2 (13:59→22:08)
[2017-05-14] MEDS: Nicotine Patch Removal NOTE PATCH OFF SCH (20:17)
[2017-05-15] MEDS: LORazepam TAB(*) 0.5 MG PO PRN ×3 (00:17→20:01)
[2017-05-15] MEDS: oxyCODONE TAB* 5 MG TAB PO PRN ×4 (00:17→18:35)
[2017-05-15] MEDS: Linezolid 600 MG IVPREMIX(*) 600 MG/300 ML BAG IVPB SCH ×2 (04:55→18:11)
[2017-05-15] MEDS: Omeprazole CAP* 20 MG PO SCH (06:07)
[2017-05-15] MEDS: Heparin VIAL(*) 5000 UNITS/ML VIAL (FIVE THOUSAND) SUBCUT SCH ×3 (06:07→21:45)
[2017-05-15] MEDS: tiZANidine TAB* 2 MG PO SCH ×4 (09:47→21:45)
[2017-05-15] MEDS: oxyCODONE SR TAB(*) 10 MG TAB.SR PO SCH ×2 (09:47→21:45)
[2017-05-15] MEDS: Ferrous Sulfate TAB* 325 MG PO SCH (09:48)
[2017-05-15] MEDS: Polyethylene Glycol 3350* 17 GM PACKET PO SCH (09:48)
[2017-05-15] MEDS: Hydrocortisone 1% CREAM* 30 GM TUBE TOPICAL SCH ×2 (09:49→21:49)
[2017-05-15] MEDS: Nystatin CREAM* 30 GM TOPICAL SCH ×3 (09:49→21:49)
[2017-05-15] MEDS: Nicotine PATCH 14 MG/24 HR* PATCH TRANSDERM SCH (09:50)
--- NOTE | 2017-05-15 10:14 | PN ---
Subjective Date of Service: 05/15/17 Interval History: patient evaluated at the bedside. She reports increased pain "in my right chest " pointing to her right lateral lung. Reports no sob at rest but states when she is talking or exerting herself she feels sob. Reports pain to be a 10/10. She is noted to be in pain on exam. She denies fever or chills in the past 24 hours. No N/V/D. Family History: Unchanged from Admission Social History: Unchanged from Admission Past Medical History: Unchanged from Admission Objective Active Medications: Acetaminophen (Tylenol Tab*) 650 mg PO Q6H PRN PRN Reason: PAIN/FEVER Last Admin: 05/13/17 07:36 Dose: 650 mg Al Hydrox/Mg Hydrox/Simethicone (Maalox Plus*) 30 ml PO Q2H PRN PRN Reason: DYSPEPSIA Ferrous Sulfate (Ferrous Sulfate Tab*) 325 mg PO 0900,1730 [facility] Last Admin: 05/15/17 09:48 Dose: 325 mg Heparin Sodium (Porcine) (Heparin Flush Picc/Ml/Cvc(*)) 1 - 3 ml FLUSH 0600, 1800 [facility] PRN Reason: Protocol Last Admin: 05/15/17 06:07 Dose: 1 ml Heparin Sodium (Porcine) (Heparin Vial(*)) 5,000 units SUBCUT Q8HR [facility] Last Admin: 05/15/17 06:07 Dose: 5,000 units Hydrocortisone (Hytone Cream 1%*) 1 applic TOPICAL BID [facility] Last Admin: 05/15/17 09:49 Dose: Not Given Linezolid (Zyvox 600 Mg Ivpremix(*)) 600 mg in 300 mls @ 300 mls/hr IVPB 0500, 1700 [facility] Last Admin: 05/15/17 04:55 Dose: 300 mls/hr Ceftriaxone Sodium 1,000 mg/ (Sodium Chloride) 50 mls @ 200 mls/hr IVPB Q24H [facility] Last Admin: 05/14/17 13:58 Dose: 200 mls/hr Ibuprofen (Motrin Tab*) 600 mg PO Q6H PRN PRN Reason: PAIN Last Admin: 05/12/17 09:29 Dose: 600 mg Lorazepam (Ativan Tab(*)) 0.5 mg PO Q6H PRN PRN Reason: ANXIETY Last Admin: 05/15/17 00:17 Dose: 0.5 mg Magnesium Hydroxide (Milk Of Magnesia Liq*) 30 ml PO Q4H PRN PRN Reason: CONSTIPATION Last Admin: 05/10/17 16:54 Dose: 30 ml Nicotine (Nicotine Patch 14 Mg/24 Hr*) 1 patch TRANSDERM 0900 [facility] Last Admin: 05/15/17 09:50 Dose: 1 patch Nicotine (Nicotine Inhaler*) 10 mg INH Q2H PRN PRN Reason: CRAVINGS Last Admin: 05/11/17 09:18 Dose: 10 mg Nicotine Polacrilex (Nicotine Gum*) 2 mg PO Q2H PRN PRN Reason: CRAVINGS Nystatin (Nystatin Cream*) 1 applic TOPICAL TID [facility] Last Admin: 05/15/17 09:49 Dose: 1 applic Omeprazole (Prilosec Cap*) 20 mg PO 0600 [facility] Last Admin: 05/15/17 06:07 Dose: 20 mg Ondansetron HCl (Zofran Inj*) 4 mg IV Q6H PRN PRN Reason: NAUSEA Last Admin: 05/08/17 17:56 Dose: 4 mg Oxycodone HCl (Roxycodone Tab*) 10 mg PO Q4H PRN PRN Reason: PAIN Last Admin: 05/15/17 04:55 Dose: 10 mg Oxycodone HCl (Oxycontin(*)) 10 mg PO BID [facility] Last Admin: 05/15/17 09:47 Dose: 10 mg Pharmacy Profile Note (Nicotine Patch Removal Note*) 1 note PATCH OFF 2100 [facility] Last Admin: 05/14/17 20:17 Dose: 1 note Polyethylene Glycol/Electrolytes (Miralax*) 17 gm PO 0900 [facility] Last Admin: 05/15/17 09:48 Dose: Not Given Tizanidine HCl (Zanaflex Tab*) 2 mg PO QID [facility] Last Admin: 05/15/17 09:47 Dose: 2 mg Vital Signs 05/14/17 05/14/17 05/14/17 10:11 10:12 10:13 Temperature Pulse Rate Respiratory 18 18 18 Rate Blood Pressure (mmHg) O2 Sat by Pulse Oximetry 05/14/17 05/14/17 05/14/17 11:42 13:34 16:15 Temperature 99.2 F Pulse Rate 65 Respiratory 16 16 18 Rate Blood Pressure 93/49 (mmHg) O2 Sat by Pulse 92 Oximetry 05/14/17 05/14/17 05/14/17 19:30 20:16 20:17 Temperature Pulse Rate Respiratory 18 18 18 Rate Blood Pressure (mmHg) O2 Sat by Pulse Oximetry 05/14/17 05/14/17 05/15/17 22:44 22:45 00:03 Temperature 99.4 F Pulse Rate 63 Respiratory 14 14 20 Rate Blood Pressure 102/67 (mmHg) O2 Sat by Pulse 95 Oximetry 05/15/17 05/15/17 05/15/17 00:17 02:15 04:55 Temperature Pulse Rate Respiratory 16 14 16 Rate Blood Pressure (mmHg) O2 Sat by Pulse Oximetry 05/15/17 09:47 Temperature Pulse Rate Respiratory 18 Rate Blood Pressure (mmHg) O2 Sat by Pulse Oximetry Oxygen Devices in Use Now: None Appearance: 36 yo female laying in bed, appears to be in pain, A+O x3, appropriate Eyes: No Scleral Icterus, PERRLA Ears/Nose/Mouth/Throat: NL Teeth, Lips, Gums, Mucous Membranes Moist Neck: NL Appearance and Movements; NL JVP Respiratory: Symmetrical Chest Expansion and Respiratory Effort, - - right LL diminished, L clear throughout; no asscessory muscle use Cardiovascular: NL Sounds; No Murmurs; No JVD, RRR, No Edema Abdominal: NL Sounds; No Tenderness; No Distention Extremities: No Edema, No Clubbing, Cyanosis Skin: No Nodules or Sclerosis Neurological: Alert and Oriented x 3, NL Sensation, NL Gait, NL Muscle Strength and Tone Lines/Tubes/Other Access: Clean, Dry and Intact PICC Line - Right - dry clean intake Nutrition: Taking PO's Result Diagrams: 05/14/17 05:30 05/14/17 05:30 Microbiology and Other Data: Microbiology 05/14/17 14:00 Legionella Urinary Antigen - Final Urine Negative Legionella Streptococcus pneumoniae Ag Screen - Final Negative S. pneumo Antigen Diagnostic Imagin/17 - CHEST PA & LAT 2 VWS IMPRESSION: Moderate dependent RIGHT pleural effusion increased over the prior exam with proportional atelectasis. RIGHT greater than LEFT basilar airspace consolidation similar to the prior exam with mild improvement on the LEFT suspicious for pneumonia given the clinical context. Assess/Plan/Problems-Billing Assessment: Ms. Holloway is a 36 yo F with h/o IVDU now with MRSA bacteremia and endocarditis. 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 Last day of antibiotic Dec. 4. 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 Two sets of blood cx drawn on 05/02/17, which are negative to date Vanco stopped 05/04 due to drug rash, linezolid started. Discussed with Dr. Michael. Last day of antibiotic Dec. 4. Repeat echo before end of course. (3) Infectious myositis Current Visit: Yes Status: Acute Code(s): M60.009 - INFECTIVE MYOSITIS, UNSPECIFIED SITE SNOMED Code(s): 26277139 Comment: - Pain improving - R iliacus involvement. - Continue antibiotics and analgesics. - MRI hip without e/o septic joint. Repeat CT pelvis 04/29 showed extensive subcut edema but no abcess, not drainable per Dr. Mohan. - - Continue Oxycodone/oxycontin - decreased oxycontin from 15mg BID to 10mg BID 05/12 (4) Pneumonia Comment: - Chest xray shows moderate dependent RIGHT pleural effusion increased over the prior exam with proportional atelectasis. RIGHT greater than LEFT basilar airspace consolidation similar to the prior exam with mild improvement on the LEFT suspicious for pneumonia given the clinical context - Today worsening pain 05/15 concern for empyema, plan for chest CT w contrast today (give one tome dose of diluadid now x1) - Afebrile since yesterday, send CBC, CRP now - sputum culture and urine antigens for S. pneumo/legionella pending - Continue Ceftriaxone (5) IVDU (intravenous drug user) Comment: - hx of IV methamphetamines for 7-8 months reporting she quit approx 1 month prior to getting sick. - social work following, plan for inpatient rehab at discharge (6) Anemia Comment: - HH improving. - Iron deficiency anemia likely related to menstrual blood loss. - FeSO4 325 mg bid started 04/21; reduce to once daily 05/15 - Iron sucrose 200 mg IV 04/23/17 and 05/02/17. (7) Tobacco abuse Comment: - Continue 7 mg nicotine patch, nicotine gum and inhaler PRN (8) DVT prophylaxis Comment: HSQ (9) Full code status Status and Disposition: Inpatient. Plan for discharge on 05/31 to Inpatient rehab.
[2017-05-15] MEDS ORDERED: HYDROmorphone INJ* 2 MG/ML CARPUJECT SYRINGE IV SLOW PU ONE (10:40)
[2017-05-15] MEDS: cefTRIAXone VIAL(*) 1,000 MG in NS 0.9% 50 ML* 50 ML IVPB SCH (11:41)
[2017-05-15 14:00] LABS: Comments Flag Yes; Hematocrit 33 % (35-47); Hemoglobin 10.4 g/dl (12.0-16.0); Mean Corpuscular HGB Conc 31 g/dl (31-36); Mean Corpuscular Hemoglobin 24 pg (27-31); Mean Corpuscular Volume 75 fL (80-97); Mean Platelet Volume 6 um3 (7.4-10.4); Red Blood Count 4.44 10^6/ul (4.0-5.4); White Blood Count 7.8 10^3/ul (3.5-10.8)
[2017-05-15 14:01] LABS: Red Cell Distribution Width 24 % (10.5-15)
[2017-05-15 14:14] LABS: Calcium 9.3 mg/dL (8.6-10.3); EGFR African American 109.1 (>60); EGFR Non-African American 84.8 (>60); Potassium 3.9 mmol/L (3.5-5.0)
[2017-05-15] MEDS ORDERED: Iohexol 300* (CONTRAST) 10 ML SDV IV ONE (15:01)
--- NOTE | 2017-05-15 16:59 | RAD ---
INDICATION: Shortness of breath and fever in an intravenous drug user with the right lung base density. COMPARISON: Chest x-ray dated May 13, 2017 TECHNIQUE: Axial source images of the chest were acquired after the injection of 80 mL Omnipaque 300 intravenous contrast from just above the lung apices to the base of the diaphragm. Coronal and sagittal reconstructed images were acquired. FINDINGS: A right-sided PICC line is noted with the tip terminating in the superior vena cava. The heart is normal in size. There is no evidence of pericardial effusion. There is no evidence of aortic aneurysm or dissection. There is no mediastinal, hilar, or axillary lymphadenopathy. Axillary lymph nodes are noted but none are pathologically enlarged. There is a large right lung base pleural effusion. No septations or heterogeneity are seen. The right lower lobe is mostly consolidated with partial consolidation of the right middle lobe as well. Only the right upper lobe appears to be fully aerated. The left lung is clear. The osseous structures appear normal. The spleen is slightly enlarged measuring just under 13 cm in greatest axial dimension. IMPRESSION: 1. Large right-sided pleural effusion with compressive consolidation of the right lower lobe and part of the right middle lobe. There is no definite heterogeneity or septations visible on CT examination. 2. Mild splenomegaly.
[2017-05-15] MEDS: Ibuprofen TAB* 600 MG PO PRN (20:00)
--- NOTE | 2017-05-15 20:12 | RAD ---
INDICATION: To further characterize the patient's large right-sided pleural effusion. COMPARISON: Same day CT of the chest as well as chest x-ray dated May 13, 2017 that shows a moderate to large right-sided pleural effusion TECHNIQUE: Real time ultrasound images of the right hemithorax were acquired with chandler scale and Doppler color flow imaging. FINDINGS: Sonographic findings are consistent with a large right simple pleural effusion. There are no septations or other echogenic debris seen in the pleural space. The pleural effusion appears to abut the posterior chest wall. As was seen on the CT examination there is compressive consolidation of the right lower lobe. IMPRESSION: Large, simple right-sided pleural effusion as described above.
[2017-05-15] MEDS: Nicotine Patch Removal NOTE PATCH OFF SCH (21:49)
[2017-05-16] MEDS: Linezolid 600 MG IVPREMIX(*) 600 MG/300 ML BAG IVPB SCH ×2 (04:58→17:31)
[2017-05-16] MEDS: Heparin VIAL(*) 5000 UNITS/ML VIAL (FIVE THOUSAND) SUBCUT SCH ×3 (04:58→22:00)
[2017-05-16] MEDS: Omeprazole CAP* 20 MG PO SCH (04:59)
[2017-05-16] MEDS: oxyCODONE TAB* 5 MG TAB PO PRN ×4 (05:01→19:26)
[2017-05-16 05:20] LABS: Hematocrit 31 % (35-47); Hemoglobin 9.7 g/dl (12.0-16.0); Mean Corpuscular HGB Conc 32 g/dl (31-36); Mean Corpuscular Hemoglobin 24 pg (27-31); Mean Platelet Volume 6 um3 (7.4-10.4); Red Blood Count 4.14 10^6/ul (4.0-5.4); White Blood Count 5.5 10^3/ul (3.5-10.8)
[2017-05-16 05:25] LABS: Comments Flag Yes
[2017-05-16 05:26] LABS: Mean Corpuscular Volume 74 fL (80-97); Red Cell Distribution Width 24 % (10.5-15)
[2017-05-16 05:38] LABS: BUN/Creatinine Ratio 18.3 (8-20); C Reactive Protein 113.11 mg/L (< 5.00); Calcium 9.2 mg/dL (8.6-10.3); EGFR African American 119.8 (>60); EGFR Non-African American 93.1 (>60); Potassium 3.9 mmol/L (3.5-5.0)
[2017-05-16] MEDS: Nicotine PATCH 14 MG/24 HR* PATCH TRANSDERM SCH (10:15)
[2017-05-16] MEDS: cefTRIAXone VIAL(*) 1,000 MG in NS 0.9% 50 ML* 50 ML IVPB SCH (10:15)
[2017-05-16] MEDS: tiZANidine TAB* 2 MG PO SCH ×4 (10:16→20:52)
[2017-05-16] MEDS: oxyCODONE SR TAB(*) 10 MG TAB.SR PO SCH ×2 (10:16→20:53)
[2017-05-16] MEDS: Ferrous Sulfate TAB* 325 MG PO SCH (10:17)
[2017-05-16] MEDS: Hydrocortisone 1% CREAM* 30 GM TUBE TOPICAL SCH ×2 (10:18→20:54)
[2017-05-16] MEDS: Nystatin CREAM* 30 GM TOPICAL SCH ×3 (10:18→20:54)
[2017-05-16] MEDS: Polyethylene Glycol 3350* 17 GM PACKET PO SCH (10:19)
--- NOTE | 2017-05-16 12:11 | PN ---
Subjective Date of Service: 05/16/17 Interval History: Pt reports she feels a little better today. Continues to have right sided chest pain worse when taking a deep breath but denies sob, fever or chills. No chest pain, abdominal pain or nausea/diarrhea or constipation. reports she has an "ok " appetite. She feels better today about going to rehab and staying sober, she is weepy when talking about it. Family History: Unchanged from Admission Social History: Unchanged from Admission Past Medical History: Unchanged from Admission Objective Active Medications: Acetaminophen (Tylenol Tab*) 650 mg PO Q6H PRN PRN Reason: PAIN/FEVER Last Admin: 05/13/17 07:36 Dose: 650 mg Al Hydrox/Mg Hydrox/Simethicone (Maalox Plus*) 30 ml PO Q2H PRN PRN Reason: DYSPEPSIA Ferrous Sulfate (Ferrous Sulfate Tab*) 325 mg PO DAILY [facility] Last Admin: 05/16/17 10:17 Dose: 325 mg Heparin Sodium (Porcine) (Heparin Flush Picc/Ml/Cvc(*)) 1 - 3 ml FLUSH 0600, 1800 [facility] PRN Reason: Protocol Last Admin: 05/16/17 06:18 Dose: 1 ml Heparin Sodium (Porcine) (Heparin Vial(*)) 5,000 units SUBCUT Q8HR [facility] Last Admin: 05/16/17 04:58 Dose: 5,000 units Hydrocortisone (Hytone Cream 1%*) 1 applic TOPICAL BID [facility] Last Admin: 05/16/17 10:18 Dose: Not Given Linezolid (Zyvox 600 Mg Ivpremix(*)) 600 mg in 300 mls @ 300 mls/hr IVPB 0500, 1700 [facility] Last Admin: 05/16/17 04:58 Dose: 300 mls/hr Ceftriaxone Sodium 1,000 mg/ (Sodium Chloride) 50 mls @ 200 mls/hr IVPB Q24H [facility] Last Admin: 05/16/17 10:15 Dose: 200 mls/hr Ibuprofen (Motrin Tab*) 600 mg PO Q6H PRN PRN Reason: PAIN Last Admin: 05/15/17 20:00 Dose: 600 mg Lorazepam (Ativan Tab(*)) 0.5 mg PO Q6H PRN PRN Reason: ANXIETY Last Admin: 05/15/17 20:01 Dose: 0.5 mg Magnesium Hydroxide (Milk Of Magnesia Liq*) 30 ml PO Q4H PRN PRN Reason: CONSTIPATION Last Admin: 05/10/17 16:54 Dose: 30 ml Nicotine (Nicotine Patch 14 Mg/24 Hr*) 1 patch TRANSDERM 0900 [facility] Last Admin: 05/16/17 10:15 Dose: 1 patch Nicotine (Nicotine Inhaler*) 10 mg INH Q2H PRN PRN Reason: CRAVINGS Last Admin: 05/11/17 09:18 Dose: 10 mg Nicotine Polacrilex (Nicotine Gum*) 2 mg PO Q2H PRN PRN Reason: CRAVINGS Nystatin (Nystatin Cream*) 1 applic TOPICAL TID [facility] Last Admin: 05/16/17 10:18 Dose: Not Given Omeprazole (Prilosec Cap*) 20 mg PO 0600 [facility] Last Admin: 05/16/17 04:59 Dose: 20 mg Ondansetron HCl (Zofran Inj*) 4 mg IV Q6H PRN PRN Reason: NAUSEA Last Admin: 05/08/17 17:56 Dose: 4 mg Oxycodone HCl (Roxycodone Tab*) 10 mg PO Q4H PRN PRN Reason: PAIN Last Admin: 05/16/17 10:16 Dose: 10 mg Oxycodone HCl (Oxycontin(*)) 10 mg PO BID [facility] Last Admin: 05/16/17 10:16 Dose: 10 mg Pharmacy Profile Note (Nicotine Patch Removal Note*) 1 note PATCH OFF 2100 [facility] Last Admin: 05/15/17 21:49 Dose: 1 note Polyethylene Glycol/Electrolytes (Miralax*) 17 gm PO 0900 [facility] Last Admin: 05/16/17 10:19 Dose: Not Given Tizanidine HCl (Zanaflex Tab*) 2 mg PO QID [facility] Last Admin: 05/16/17 10:16 Dose: 2 mg Vital Signs 05/15/17 05/15/17 05/15/17 12:33 14:26 15:53 Temperature Pulse Rate Respiratory 18 16 18 Rate Blood Pressure (mmHg) O2 Sat by Pulse Oximetry 05/15/17 05/15/17 05/15/17 17:04 18:16 18:35 Temperature 99.3 F Pulse Rate 67 Respiratory 16 16 20 Rate Blood Pressure 104/65 (mmHg) O2 Sat by Pulse 97 Oximetry 05/15/17 05/15/17 05/15/17 20:00 20:01 21:44 Temperature Pulse Rate Respiratory 20 20 20 Rate Blood Pressure (mmHg) O2 Sat by Pulse Oximetry 05/15/17 05/16/17 05/16/17 21:45 00:00 00:01 Temperature Pulse Rate Respiratory 18 18 18 Rate Blood Pressure (mmHg) O2 Sat by Pulse Oximetry 05/16/17 05/16/17 05/16/17 05:01 08:00 08:06 Temperature 98.3 F Pulse Rate 60 Respiratory 20 18 16 Rate Blood Pressure 91/58 (mmHg) O2 Sat by Pulse 94 Oximetry 05/16/17 10:16 Temperature Pulse Rate Respiratory 18 Rate Blood Pressure (mmHg) O2 Sat by Pulse Oximetry Oxygen Devices in Use Now: None Appearance: 36 yo female A+Ox3 in NAD Eyes: No Scleral Icterus, PERRLA Ears/Nose/Mouth/Throat: NL Teeth, Lips, Gums Neck: NL Appearance and Movements; NL JVP Respiratory: Symmetrical Chest Expansion and Respiratory Effort, - - RLL diminished otherwose clear throughout; no accessory muscle use Cardiovascular: NL Sounds; No Murmurs; No JVD, RRR, No Edema Abdominal: NL Sounds; No Tenderness; No Distention Extremities: No Edema, No Clubbing, Cyanosis Skin: No Rash or Ulcers, No Nodules or Sclerosis Neurological: Alert and Oriented x 3, NL Sensation, NL Gait, NL Muscle Strength and Tone Lines/Tubes/Other Access: Clean, Dry and Intact PICC Line - CD+I Nutrition: Taking PO's Result Diagrams: 05/16/17 05:00 05/16/17 05:00 Microbiology and Other Data: Microbiology 05/14/17 14:00 Legionella Urinary Antigen - Final Urine Negative Legionella Streptococcus pneumoniae Ag Screen - Final Negative S. pneumo Antigen Diagnostic Imagin/17 - CHEST PA & LAT 2 VWS IMPRESSION: Moderate dependent RIGHT pleural effusion increased over the prior exam with proportional atelectasis. RIGHT greater than LEFT basilar airspace consolidation similar to the prior exam with mild improvement on the LEFT suspicious for pneumonia given the clinical context. Assess/Plan/Problems-Billing Assessment: Ms. Holloway is a 36 yo F with h/o IVDU now with MRSA bacteremia and endocarditis. 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 Last day of antibiotic Dec. 4. 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 Two sets of blood cx drawn on 05/02/17, which are negative to date Vanco stopped 05/04 due to drug rash, linezolid started. Discussed with Dr. Michael. Last day of antibiotic Dec. 4. Repeat echo before end of course. (3) Infectious myositis Comment: - Pain improving - R iliacus involvement. - Continue antibiotics and analgesics. - MRI hip without e/o septic joint. Repeat CT pelvis 04/29 showed extensive subcut edema but no abcess, not drainable per Dr. Mohan. - - Continue Oxycodone/oxycontin - decreased oxycontin from 15mg BID to 10mg BID 05/12 (4) Pneumonia Comment: - Chest xray 05/13 showed moderate dependent RIGHT pleural effusion increased over the prior exam with proportional atelectasis. RIGHT greater than LEFT basilar airspace consolidation similar to the prior exam with mild improvement on the LEFT suspicious for pneumonia given the clinical context. 05/[address] w contrast showed large right pleural effusion with compressive consolidation of the right lower and part of middle lobes - no definite heterogeneity or septations. Discussed with Radiologist who recommended a follow up Chest Ultrasound which showed large simple pleural effusion. - will ask pulmonology to consult tomorrow for possible thoracentesis - she is stable at this time with no fever/leukocytosis and oxygenating well. - Urine antigens for S. pneumo/legionella negative - Continue Ceftriaxone - Check labs in am (5) IVDU (intravenous drug user) Comment: - hx of IV methamphetamines for 7-8 months reporting she quit approx 1 month prior to getting sick. - social work following, plan for inpatient rehab at discharge (6) Anemia Comment: - HH improving. - Iron deficiency anemia likely related to menstrual blood loss. - FeSO4 325 mg bid started 04/21; reduce to once daily 05/15 - Iron sucrose 200 mg IV 04/23/17 and 05/02/17. (7) Tobacco abuse Comment: - Continue 7 mg nicotine patch, nicotine gum and inhaler PRN (8) DVT prophylaxis Comment: HSQ (9) Full code status Status and Disposition: Plan for discharge on 05/31 to Inpatient rehab.
[2017-05-16] MEDS: LORazepam TAB(*) 0.5 MG PO PRN ×2 (14:47→21:02)
[2017-05-16 16:13] LABS: Body Fluid Appearance Cloudy
[2017-05-16 16:18] LABS: Body Fluid WBC 3348 /mcL
--- NOTE | 2017-05-16 16:28 | RAD ---
INDICATION: Status post right-sided thoracentesis COMPARISON: Most recent comparison chest x-rays dated May 13, 2017 TECHNIQUE: Single AP portable view of the chest was obtained. FINDINGS: Image quality is compromised due to the relative inferiority of a portable chest x-ray. There is been minimal interval reduction in the size of the density obscuring the right lung base. No pneumothorax is seen. The left lung remains adequately aerated. IMPRESSION: No pneumothorax status post right-sided thoracentesis.
[2017-05-16 16:37] LABS: Body Fluid Total Cells Counted 100
[2017-05-16] MEDS: Nicotine Patch Removal NOTE PATCH OFF SCH (20:53)
--- NOTE | 2017-05-16 22:09 | CONS ---
PULMONARY CONSULTATION REPORT: DATE OF CONSULT: 05/16/17 CONSULTATION REQUESTED BY: Rylee Martinez NP REASON FOR CONSULT: Evaluation of right-sided pleural effusion. HISTORY OF PRESENT ILLNESS: The patient is a 36-year-old female with recent diagnosis of infective endocarditis and right hip myositis with history of IV drug abuse, last use, 1 month prior to the presentation, who presented with 3 days of rigors, right-sided hip pain, was found to have T-max of 102.8 with transthoracic echocardiogram that was performed on 04/20/17 notable for mass on the tricuspid valve. MRI of the hip showed right retroperitoneal space with edema in the right iliac muscle concerning for retroperitoneal soft tissue infection, which was not amenable to interventional drainage. The patient also found to have multiple blood cultures positive for MRSA. The patient is currently on linezolid and Rocephin. The patient had CT scan of the chest performed for evaluation of shortness of breath and the density on chest x-ray. I have personally reviewed CT scan of the chest and ultrasound images. The patient noted to have [id number] sized right pleural effusion with no septations. The patient's ultrasound also confirmed right pleural effusion without any densities. The patient is anxious and tearful during the interview. The patient agreed to thoracentesis, procedure was explained and was performed on bedside. Please refer to separately dictated note for further details. The patient other than anxiety denied chest pain, palpitations, dizziness, cough. She has right hip pain. ALLERGIES: Reviewed. She has allergies to VANCOMYCIN, DIPHENHYDRAMINE, TRAMADOL. FAMILY HISTORY: No significant family history of medical problems. SOCIAL HISTORY: Current smoker, on nicotine patches and nicotine inhaler. No alcohol usage. She has recent IV drug abuse. REVIEW OF SYSTEMS: All systems reviewed and as per HPI. PHYSICAL EXAM: The patient in bed, in no apparent distress, slightly tearful. Vital Signs: Temperature 98.3, pulse 60 beats per minute, respiratory rate 16 per minute, O2 sat 94% on room air, blood pressure 91/58. HEENT: Pupils are equal and reactive to light, mucous membranes moist. Lungs: Good air entry bilaterally, diminished on right side midway down. No wheeze. Cardiovascular: S1 and S2 present, regular. 2/6 systolic ejection murmur at left lower sternal border. Abdomen: Soft, nontender, nondistended. Bowel sounds present. Skin: Moist and dry. Has psoriatic skin lesions predominantly on the upper extremities and occiput with red beefy rashes in right groin. Neuro: Alert, awake, and oriented x3, anxious. Musculoskeletal: Normal range of motion. DIAGNOSTIC STUDIES/LAB DATA: WBC count 5.5, hemoglobin 9.7, hematocrit 31, platelet count 332. INR 1.33. Sodium 134, potassium 3.9, chloride 99, bicarb 27, BUN 13, creatinine 0.7. CRP elevated at 113. CT chest and ultrasound of the chest as described above in HPI. IMPRESSION AND RECOMMENDATIONS: 36-year-old female with IV drug abuse with infective endocarditis, methicillin-resistant Staphylococcus aureus bacteremia with right-sided pleural effusion. Right-sided pleural effusion- will need to rule out parapneumonic effusion, ? infected pleural fluid secondary to bacteremia. Thoracentesis was performed at bedside today. 850 mL of mildly turbid fluid was removed. The patient tolerated the procedure well. Postprocedure chest x-ray was negative for pneumothorax. Fluid was sent to lab for further identification. The patient is currently on antibiotics. Further recommendations pending fluid characterization. Donot see need for chest tube at this time Rest of management as per primary team. [id number]/[facility] #: [id number] [facility]
--- NOTE | 2017-05-17 01:03 | PRO ---
THORACENTESIS REPORT: DATE OF PROCEDURE: 05/16/17 - ROOM #[id number] PROCEDURE PERFORMED: Right-sided thoracentesis with ultrasound guidance. PREPROCEDURAL DIAGNOSIS: Xytvphoi-[id number] size right pleural effusion. POSTPROCEDURAL DIAGNOSIS: Right pleural effusion. ANESTHESIA: 1% lidocaine, 3 cc. PROCEDURE IN DETAIL: Informed consent was obtained from the patient prior to the procedure after all the risks and benefits were thoroughly explained. Risk of pneumothorax was discussed. The patient with history of infective endocarditis and right hip myositis, found to have shortness of breath and was noted to have [id number] sized right pleural effusion. Thoracentesis was performed for diagnostic and therapeutic purposes. The patient was sitting up, leaning forward. Strict aseptic precautions were utilized. Portable ultrasound was utilized at bedside to localize large amounts of right pleural effusion, freely flowing with no densities. Right posterior thorax was marked. 1% lidocaine was utilized for local anesthesia. After the site was marked with ultrasound, 8-Canadian thoracentesis CareFusion catheter was utilized. Small subdermal needle was inserted, lidocaine given intradermally, subcutaneously under manual aspiration taking precautions. A #10 scalpel blade was utilized to make stab incision. A CareFusion 8-Canadian catheter was then inserted under manual suction. Needle was removed and catheter was left in place. 850 mL of mildly turbid fluid was aspirated under manual suction. The patient tolerated the procedure well. Fluid was sent to lab for cytological and biochemical examination and microbial cultures. Catheter was then removed and a Band-Aid was applied in the area. Postprocedure chest x-ray was performed and was negative for pneumothorax. [id number] #: [id number] [facility]
[2017-05-17] MEDS: Linezolid 600 MG IVPREMIX(*) 600 MG/300 ML BAG IVPB SCH ×2 (05:40→17:27)
[2017-05-17] MEDS: Heparin VIAL(*) 5000 UNITS/ML VIAL (FIVE THOUSAND) SUBCUT SCH ×3 (05:45→23:00)
[2017-05-17] MEDS: Omeprazole CAP* 20 MG PO SCH (05:45)
[2017-05-17] MEDS: oxyCODONE TAB* 5 MG TAB PO PRN ×4 (05:45→19:12)
[2017-05-17 06:19] LABS: Hematocrit 33 % (35-47); Hemoglobin 10.4 g/dl (12.0-16.0); Mean Corpuscular HGB Conc 32 g/dl (31-36); Mean Corpuscular Hemoglobin 24 pg (27-31); Mean Corpuscular Volume 75 fL (80-97); Mean Platelet Volume 6 um3 (7.4-10.4); Red Blood Count 4.36 10^6/ul (4.0-5.4); White Blood Count 6.1 10^3/ul (3.5-10.8)
[2017-05-17 06:20] LABS: Comments Flag Yes; Red Cell Distribution Width 24 % (10.5-15)
[2017-05-17 06:34] LABS: BUN/Creatinine Ratio 16.4 (8-20); Calcium 9.9 mg/dL (8.6-10.3); EGFR African American 128.1 (>60); EGFR Non-African American 99.6 (>60)
[2017-05-17] MEDS: tiZANidine TAB* 2 MG PO SCH ×4 (09:12→20:37)
[2017-05-17] MEDS: LORazepam TAB(*) 0.5 MG PO PRN ×2 (09:12→20:49)
[2017-05-17] MEDS: Nicotine PATCH 14 MG/24 HR* PATCH TRANSDERM SCH (09:12)
[2017-05-17] MEDS: Ferrous Sulfate TAB* 325 MG PO SCH (09:12)
[2017-05-17] MEDS: oxyCODONE SR TAB(*) 10 MG TAB.SR PO SCH ×2 (09:12→20:37)
[2017-05-17] MEDS: Polyethylene Glycol 3350* 17 GM PACKET PO SCH (09:12)
[2017-05-17] MEDS: Ibuprofen TAB* 600 MG PO PRN (09:12)
[2017-05-17] MEDS: Hydrocortisone 1% CREAM* 30 GM TUBE TOPICAL SCH ×2 (09:14→20:39)
[2017-05-17] MEDS: Nystatin CREAM* 30 GM TOPICAL SCH ×3 (09:14→20:39)
[2017-05-17] MEDS: cefTRIAXone VIAL(*) 1,000 MG in NS 0.9% 50 ML* 50 ML IVPB SCH (11:37)
[2017-05-17] MEDS: Nicotine Patch Removal NOTE PATCH OFF SCH (20:38)
[2017-05-18] MEDS: oxyCODONE TAB* 5 MG TAB PO PRN ×4 (05:04→19:47)
[2017-05-18] MEDS: Linezolid 600 MG IVPREMIX(*) 600 MG/300 ML BAG IVPB SCH ×2 (05:05→21:26)
[2017-05-18] MEDS: Heparin VIAL(*) 5000 UNITS/ML VIAL (FIVE THOUSAND) SUBCUT SCH ×3 (06:20→21:34)
[2017-05-18] MEDS: Omeprazole CAP* 20 MG PO SCH (06:20)
[2017-05-18] MEDS: Polyethylene Glycol 3350* 17 GM PACKET PO SCH (09:11)
[2017-05-18] MEDS: Hydrocortisone 1% CREAM* 30 GM TUBE TOPICAL SCH ×2 (09:11→21:29)
[2017-05-18] MEDS: Nystatin CREAM* 30 GM TOPICAL SCH ×4 (09:11→21:31)
[2017-05-18] MEDS: Ferrous Sulfate TAB* 325 MG PO SCH (09:18)
[2017-05-18] MEDS: Ibuprofen TAB* 600 MG PO PRN (09:18)
[2017-05-18] MEDS: oxyCODONE SR TAB(*) 10 MG TAB.SR PO SCH ×2 (09:18→21:27)
[2017-05-18] MEDS: tiZANidine TAB* 2 MG PO SCH ×4 (09:18→21:27)
[2017-05-18] MEDS: Nicotine PATCH 14 MG/24 HR* PATCH TRANSDERM SCH (09:19)
[2017-05-18] MEDS: cefTRIAXone VIAL(*) 1,000 MG in NS 0.9% 50 ML* 50 ML IVPB SCH (11:11)
[2017-05-18 12:32] LABS: Total Protein, BF 6.1 g/dL
[2017-05-18] MEDS: LORazepam TAB(*) 0.5 MG PO PRN (16:26)
[2017-05-18] MEDS: Nicotine Patch Removal NOTE PATCH OFF SCH (21:29)
[2017-05-18] MEDS: Nicotine Inhaler* 10 MG AMP INH PRN (21:54)
[2017-05-19] MEDS: Omeprazole CAP* 20 MG PO SCH (07:12)
[2017-05-19] MEDS: Heparin VIAL(*) 5000 UNITS/ML VIAL (FIVE THOUSAND) SUBCUT SCH ×3 (07:12→20:12)
[2017-05-19] MEDS: Ibuprofen TAB* 600 MG PO PRN ×2 (08:03→18:04)
[2017-05-19] MEDS: Linezolid 600 MG IVPREMIX(*) 600 MG/300 ML BAG IVPB SCH ×2 (08:03→20:02)
[2017-05-19] MEDS: Nicotine PATCH 14 MG/24 HR* PATCH TRANSDERM SCH (08:04)
[2017-05-19] MEDS: tiZANidine TAB* 2 MG PO SCH ×4 (08:04→19:58)
[2017-05-19] MEDS: oxyCODONE TAB* 5 MG TAB PO PRN ×3 (08:04→19:58)
[2017-05-19] MEDS: Ferrous Sulfate TAB* 325 MG PO SCH (08:04)
[2017-05-19] MEDS: oxyCODONE SR TAB(*) 10 MG TAB.SR PO SCH ×2 (08:04→19:59)
[2017-05-19] MEDS: Hydrocortisone 1% CREAM* 30 GM TUBE TOPICAL SCH ×2 (08:10→20:11)
[2017-05-19] MEDS: Nystatin CREAM* 30 GM TOPICAL SCH ×3 (08:10→20:11)
[2017-05-19] MEDS: Polyethylene Glycol 3350* 17 GM PACKET PO SCH (08:13)
[2017-05-19] MEDS: cefTRIAXone VIAL(*) 1,000 MG in NS 0.9% 50 ML* 50 ML IVPB SCH (11:11)
[2017-05-19] MEDS: LORazepam TAB(*) 0.5 MG PO PRN (15:14)
[2017-05-19] MEDS: Nicotine Patch Removal NOTE PATCH OFF SCH (20:11)
[2017-05-20] MEDS: Heparin VIAL(*) 5000 UNITS/ML VIAL (FIVE THOUSAND) SUBCUT SCH ×3 (06:11→21:14)
[2017-05-20] MEDS: Omeprazole CAP* 20 MG PO SCH (06:11)
[2017-05-20] MEDS: Hydrocortisone 1% CREAM* 30 GM TUBE TOPICAL SCH ×2 (08:22→21:13)
[2017-05-20] MEDS: Polyethylene Glycol 3350* 17 GM PACKET PO SCH (08:22)
[2017-05-20] MEDS: Nicotine PATCH 14 MG/24 HR* PATCH TRANSDERM SCH (08:44)
[2017-05-20] MEDS: Ferrous Sulfate TAB* 325 MG PO SCH (08:44)
[2017-05-20] MEDS: tiZANidine TAB* 2 MG PO SCH ×4 (08:44→21:09)
[2017-05-20] MEDS: LORazepam TAB(*) 0.5 MG PO PRN ×2 (08:44→16:26)
[2017-05-20] MEDS: oxyCODONE SR TAB(*) 10 MG TAB.SR PO SCH (08:44)
[2017-05-20] MEDS: Linezolid 600 MG IVPREMIX(*) 600 MG/300 ML BAG IVPB SCH ×2 (08:46→20:03)
[2017-05-20] MEDS: Nystatin CREAM* 30 GM TOPICAL SCH ×3 (08:55→21:09)
[2017-05-20] MEDS: cefTRIAXone VIAL(*) 1,000 MG in NS 0.9% 50 ML* 50 ML IVPB SCH (11:16)
[2017-05-20] MEDS: oxyCODONE TAB* 5 MG TAB PO PRN ×2 (11:23→16:26)
--- NOTE | 2017-05-20 14:29 | PN ---
Subjective Date of Service: 05/20/17 Interval History: Patient seen and examined at bedside. Denies fever, chills, shortness of breath , chest discomfort, N/V/D. Pt states that her pain is improving and she would like to discontinue her Oxycontin and just take oxycodone PRN. Pt has been up in the halls ambulating and going [place] [facility] [place] Family History: Unchanged from Admission Social History: Unchanged from Admission Past Medical History: Unchanged from Admission Objective Active Medications: Acetaminophen (Tylenol Tab*) 650 mg PO Q6H PRN Reason: PAIN/FEVER Al Hydrox/Mg Hydrox/Simethicone (Maalox Plus*) 30 ml PO Q2H PRN Reason: DYSPEPSIA Ferrous Sulfate (Ferrous Sulfate Tab*) 325 mg PO DAILY [facility] Heparin Sodium (Porcine) (Heparin Vial(*)) 5,000 units SUBCUT Q8HR [facility] Heparin Sodium (Porcine) (Heparin Flush Picc/Ml/Cvc(*)) 1 - 3 ml FLUSH 0900, 2100 [facility] Reason: Protocol Hydrocortisone (Hytone Cream 1%*) 1 applic TOPICAL BID [facility] Linezolid (Zyvox 600 Mg Ivpremix(*)) 600 mg in 300 mls @ 300 mls/hr IVPB 0800, 2000 [facility] Ibuprofen (Motrin Tab*) 600 mg PO Q6H PRN Reason: PAIN Lorazepam (Ativan Tab(*)) 0.5 mg PO Q6H PRN Reason: ANXIETY Magnesium Hydroxide (Milk Of Magnesia Liq*) 30 ml PO Q4H PRN Reason: CONSTIPATION Nicotine (Nicotine Patch 14 Mg/24 Hr*) 1 patch TRANSDERM 0900 [facility] Nicotine (Nicotine Inhaler*) 10 mg INH Q2H PRN Reason: CRAVINGS Nicotine Polacrilex (Nicotine Gum*) 2 mg PO Q2H PRN Reason: CRAVINGS Nystatin (Nystatin Cream*) 1 applic TOPICAL TID [facility] Omeprazole (Prilosec Cap*) 20 mg PO 0600 [facility] Ondansetron HCl (Zofran Inj*) 4 mg IV Q6H PRN Reason: NAUSEA Oxycodone HCl (Roxycodone Tab*) 10 mg PO Q4H PRN Reason: PAIN Pharmacy Profile Note (Nicotine Patch Removal Note*) 1 note PATCH OFF 2100 [facility] Polyethylene Glycol/Electrolytes (Miralax*) 17 gm PO 0900 [facility] Tizanidine HCl (Zanaflex Tab*) 2 mg PO QID [facility] Vital Signs 05/20/17 05/20/17 05/20/17 08:00 08:44 10:02 Temperature 98.3 F Pulse Rate 71 Respiratory 16 16 16 Rate Blood Pressure 104/63 (mmHg) O2 Sat by Pulse 98 Oximetry Oxygen Devices in Use Now: None Appearance: NAD, walking in the lopez Respiratory: Symmetrical Chest Expansion and Respiratory Effort, Clear to Auscultation Cardiovascular: NL Sounds; No Murmurs; No JVD, RRR Abdominal: NL Sounds; No Tenderness; No Distention Neurological: Alert and Oriented x 3, NL Muscle Strength and Tone Lines/Tubes/Other Access: Clean, Dry and Intact PICC Line - site benign Nutrition: Taking PO's Result Diagrams: 05/17/17 05:48 05/17/17 05:48 Microbiology and Other Data: Microbiology 05/14/17 14:00 Legionella Urinary Antigen - Final Urine Negative Legionella Streptococcus pneumoniae Ag Screen - Final Negative S. pneumo Antigen Diagnostic Imagin/17 - CHEST PA & LAT 2 VWS IMPRESSION: Moderate dependent RIGHT pleural effusion increased over the prior exam with proportional atelectasis. RIGHT greater than LEFT basilar airspace consolidation similar to the prior exam with mild improvement on the LEFT suspicious for pneumonia given the clinical context. Assess/Plan/Problems-Billing Assessment: Ms. Holloway is a 36 yo F with h/o IVDU now with MRSA bacteremia and endocarditis. 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 Last day of antibiotic Dec. 4. - Repeat echo 05/26/17 - Weekly labs, including CBC, BMP and CRP (2) Infectious myositis Code(s): M60.009 - INFECTIVE MYOSITIS, UNSPECIFIED SITE SNOMED Code(s): 56935485 Comment: - Pain improving - R iliacus involvement. - Continue antibiotics and analgesics. - MRI hip without e/o septic joint. Repeat CT pelvis 04/29 showed extensive subcut edema but no abcess, not drainable per Dr. Mohan. - Continue Oxycodone, discontinued oxycontin 05/20 (3) Pneumonia Code(s): J18.9 - PNEUMONIA, UNSPECIFIED ORGANISM SNOMED Code(s): 301189469 Comment: - Afebrile and no leukocytosis - Chest xray 05/13 showed moderate dependent RIGHT pleural effusion increased over the prior exam with proportional atelectasis. RIGHT greater than LEFT basilar airspace consolidation similar to the prior exam with mild improvement on the LEFT suspicious for pneumonia given the clinical context. 05/[address] w contrast showed large right pleural effusion with compressive consolidation of the right lower and part of middle lobes - no definite heterogeneity or septations. Discussed with Radiologist who recommended a follow up Chest Ultrasound which showed large simple pleural effusion. - Pulmonology performed a thoracentesis - Urine antigens for S. pneumo/legionella negative - Completed a 7 day course of Ceftriaxone - Check labs in am (4) Anemia Code(s): D64.9 - ANEMIA, UNSPECIFIED SNOMED Code(s): 561845297 Comment: - HH improving. - Iron deficiency anemia likely related to menstrual blood loss. - Iron sucrose 200 mg IV 04/23/17 and 05/02/17. - FeSO4 325 mg bid started 04/21; reduce to once daily 05/15 (5) Tobacco abuse Code(s): Z72.0 - TOBACCO USE SNOMED Code(s): 941450340 Comment: - Continue 7 mg nicotine patch, nicotine gum and inhaler PRN (6) Depression Code(s): F32.9 - MAJOR DEPRESSIVE DISORDER, SINGLE EPISODE, UNSPECIFIED SNOMED Code(s): 99297615 Comment: - Pt would like to be started on an antidepressant - There are many interactions with antidepressants and Linezolid - Pt states Prozac has worked well for her in the past - Plan to start Prozac 20 mg daily for 3 days and then may titrate to 40mg daily once she has completed Linezolid (7) DVT prophylaxis Code(s): FXN5833 - SNOMED Code(s): 875943362 Comment: HSQ (8) Full code status Code(s): Z78.9 - OTHER SPECIFIED HEALTH STATUS SNOMED Code(s): 168434115 Status and Disposition: Plan for discharge on 05/31 to Inpatient rehab.
[2017-05-20] MEDS: Nicotine Patch Removal NOTE PATCH OFF SCH (21:12)
[2017-05-21] MEDS: Omeprazole CAP* 20 MG PO SCH (05:04)
[2017-05-21] MEDS: oxyCODONE TAB* 5 MG TAB PO PRN ×2 (05:07→10:24)
[2017-05-21 05:28] LABS: Hematocrit 33 % (35-47); Hemoglobin 10.3 g/dl (12.0-16.0); Mean Corpuscular HGB Conc 31 g/dl (31-36); Mean Corpuscular Hemoglobin 24 pg (27-31); Mean Corpuscular Volume 76 fL (80-97); Mean Platelet Volume 6 um3 (7.4-10.4); Red Blood Count 4.32 10^6/ul (4.0-5.4); White Blood Count 5.6 10^3/ul (3.5-10.8)
[2017-05-21 05:44] LABS: BUN/Creatinine Ratio 17.6 (8-20); C Reactive Protein 24.77 mg/L (< 5.00); Calcium 9.8 mg/dL (8.6-10.3); EGFR African American 125.9 (>60); EGFR Non-African American 97.9 (>60); Potassium 4.1 mmol/L (3.5-5.0)
[2017-05-21 05:49] LABS: Comments Flag Yes; Red Cell Distribution Width 24 % (10.5-15)
[2017-05-21] MEDS: Heparin VIAL(*) 5000 UNITS/ML VIAL (FIVE THOUSAND) SUBCUT SCH ×2 (07:11→12:16)
[2017-05-21] MEDS: tiZANidine TAB* 2 MG PO SCH (08:16)
[2017-05-21] MEDS: Linezolid 600 MG IVPREMIX(*) 600 MG/300 ML BAG IVPB SCH (08:16)
[2017-05-21] MEDS: Ferrous Sulfate TAB* 325 MG PO SCH (08:16)
[2017-05-21] MEDS: Polyethylene Glycol 3350* 17 GM PACKET PO SCH (08:16)
[2017-05-21] MEDS: Nicotine PATCH 14 MG/24 HR* PATCH TRANSDERM SCH (08:18)
[2017-05-21] MEDS: Nystatin CREAM* 30 GM TOPICAL SCH (08:18)
[2017-05-21] MEDS: Hydrocortisone 1% CREAM* 30 GM TUBE TOPICAL SCH (08:18)
[2017-05-21] MEDS: LORazepam TAB(*) 0.5 MG PO PRN (08:57)
[2017-05-21 09:43] VITALS: BP 112/68
--- NOTE | 2017-05-22 00:42 | DS ---
CC: Saul Michael MD * DISCHARGE SUMMARY: DATE OF ADMISSION: 05/07/17 DATE OF DISCHARGE: 05/21/17 ATTENDING PROVIDER: Dr. Das * (DICTATED BY BENIOT MANLEY) PRIMARY CARE PROVIDER: None. CONSULTING LEAD SHAREPOINT DEVELOPER: Dr. Burns. CONSULTING INFECTIOUS DISEASE SPECIALIST: Saul Michael MD PRIMARY DISCHARGE DIAGNOSES: 1. Acute infective endocarditis with methicillin-resistant Staphylococcus aureus bacteremia, who completed 5 of her 6 weeks of recommended IV antibiotics. 2. Medical noncompliance - the patient is leaving the hospital against medical advice. 3. Infectious myositis of the right iliacus, no associated septic joints. 4. Pneumonia with parapneumonic effusion, status post thoracentesis. 5. Anemia likely secondary to iron deficiency as a result of chronic menstrual blood loss. 6. Tobacco abuse. 7. Depression. DISCHARGE MEDICATIONS: 1. Bactrim DS 1 tablet p.o. twice daily x10 days. HOSPITAL IMAGIN. Chest x-ray, 05/13/17, shows a moderate dependent right pleural effusion, which appears increased in size as compared to previous right greater than left bibasilar consolidation suspicious for pneumonia. 2. CT of the chest, 05/15/17, shows a right-sided pleural effusion with compressive consolidation of the right lower lobe and part of the right middle lobe. 3. Ultrasound of the chest shows a simple right-sided pleural effusion. 4. Chest x-ray, 05/16/17, shows no pneumothorax status post right-sided thoracentesis. HOSPITAL COURSE: This is a 36-year-old female with a history of IV drug abuse, who was admitted under acute care status from 04/20/17 through 05/07/17 with a chief complaint of fever and right-sided hip pain. She was diagnosed with an infective myositis and acute endocarditis with blood cultures positive for MRSA. Due to her history of IV drug abuse, the patient was admitted to swing status for continued IV antibiotics. The patient was scheduled to finish antibiotics, 05/31/17. The patient was initially treated with IV vancomycin for her MRSA bacteremia but developed a drug rash and was subsequently transitioned to IV linezolid. The patient developed respiratory symptoms during her hospital stay, imaging was consistent with pneumonia and concern for parapneumonic effusion. She underwent thoracentesis, fluid appears to be exudative culture; however, remains negative and the patient was treated with a course the ceftriaxone in addition to the linezolid that she had already been receiving for her MRSA infection. The patient's swing status stay otherwise remained rather unremarkable. On 05/21/17, the patient expressed interested in leaving the hospital against medical advice. She stated that she could "not stand to stay here 1 second longer." She was willing to speak with 2 different nursing staff members that she was familiar with as well as clinical social worker and myself. Multiple strategies including getting her outside to accommodate her tobacco craving were discussed , but the patient declined all of them and despite specific conversation about the risks of leaving the hospital without fully treating her endocarditis including , permanent disability, severe valvular disease, and heart failure, the patient decided to leave against medical advice. The patient was calm with a linear thought process and was clearly able to state the potential risks of leaving the hospital against medical advice. She was able to state a plan that she would return to the emergency department if she had any recurrence of fevers or chest pain. She maintains capacity to make this decision at the time of leaving the hospital. The patient's PICC line was removed prior to her leaving. She was discharged with additional 10 days of oral Bactrim in hopes of continuing to treat her MRSA bacteremia. The patient understood that this was an inferior treatment option. DISPOSITION AND FOLLOWUP PLAN: The patient left the hospital against medical advice. She received 10-day supply of oral Bactrim. She plans to return to the emergency department with recurrent symptoms. BENOIT MANLEY [id number]/[facility] #: [id number] [facility]
== END 2017-05-21 13:24 | disposition left against medical advice (07) | DRG 193 ==
LOC: MEDTELE 15:53
PROVIDERS: ADMIT Internal Medicine; ATTEND Hospitalist
PROC: 0W993ZZ Drainage of Right Pleural Cavity, Percutaneous Approach (ICD-10-PCS; principal; 2017-05-16)
DX: I33.0 Acute and subacute infective endocarditis (principal); J18.9 Pneumonia, unspecified organism; J90 Pleural effusion, not elsewhere classified; M60.08 Infective myositis, other site; I10 Essential (primary) hypertension; F32.9 Major depressive disorder, single episode, unspecified; F17.200 Nicotine dependence, unspecified, uncomplicated; B95.62 Methicillin resistant Staphylococcus aureus infection as the cause of diseases classified elsewhere; F41.9 Anxiety disorder, unspecified; E61.1 Iron deficiency; T36.8X5A Adverse effect of other systemic antibiotics, initial encounter; L27.0 Generalized skin eruption due to drugs and medicaments taken internally; Y92.9 Unspecified place or not applicable; Z91.14 Patient's other noncompliance with medication regimen
CPT/HCPCS: 36415; 71010; 71020; 71260; 76604; 80048; 83615; 83986; 84157; 85025; 86140; 86141; 87070; 87205; 87899; 88112; 89051; A9270-GY; J0696; J1170; J1644; J2020; J2405; Q9967